=== PATIENT | female | born 1955 | race Caucasian/White ===

== ENCOUNTER → 2017-05-30 09:49 | Outpatient (CLI) | payer BC, SELFPAY ==
[2017-05-30 12:12] LABS: Absolute Lymphocyte Count 2.11 X10^3/ul (0.83-4.51); Absolute Neutrophil Count 3.1 X10^3/uL (2.0-7.7); Basophil# 0.02 X10^3/uL; Basophil% 0.3 % (0-1); Eosinophil# 0.21 X10^3/uL; Eosinophils% 3.5 % (0-5); Hematocrit 39.2 % (37-47); Hemoglobin 12.8 g/dl (12.0-15.0); Lymphocyte # 2.11 X10^3/ul (4.0); Mean Corp Hgb Conc 32.7 g/gl (32-36); Mean Corpuscular Hgb 31.6 pg (27.0-32.0); Mean Corpuscular Volume 96.8 fL (81-99); Mean Platelet Vol. 9.1 fl (6.2-12.0); Monocyte# 0.55 X10^3/uL; Monocyte% 9.1 % (0-10); Neutrophil # 3.14 X10^3/uL (2.7-7.7); Neutrophil % 52.1 % (47-70); Platelet Count 351 K/mm3 (150-450); RBC Distribution Width CV 12.9 % (11.6-14.6); RBC Distribution Width SD 43.9 fl (35.1-43.9); Red Blood Count 4.05 M/mm3 (4.2-5.4)
[2017-05-30 12:14] LABS: POSITIVE COUNT NO; POSITIVE DIFFERENTIAL NO; POSITIVE MORPHOLOGY NO
[2017-05-30 12:39] LABS: ALB/GLOB Ratio 0.9 RATIO (0.9-2.4); AST(SGOT) 36 U/L (15-37); Alanine Aminotransfer ALT/SGPT 63 U/L (13-56); Albumin, Serum 3.6 g/dL (3.2-5.0); Alkaline Phosphatase 155 U/L (45-117); Anion Gap 6 (5-15); BUN 19 mg/dL (7-18); BUN/Creat Ratio 20.7 RATIO (10-20); Calcium,Total 9.3 mg/dL (8.5-10.1); Chloride 105 mmol/L (98-107); Cholesterol 171 mg/dL (200); Creatinine, Serum 0.92 mg/dL (0.55-1.02); EST Glomerular Filtration Rate 65 mL/min (>60); Est Glom Filt Rate - Afr Amer 79 mL/min (>60); Glucose 101 mg/dL (74-106); High Density Lipoprotein 57 mg/dL; Potassium 4.3 mmol/L (3.5-5.1); Protein, Total 7.6 g/dL (6.4-8.2); Sodium Level 141 mmol/L (136-145); Thyroid Stim Hormone (TSH) 1.88 uIU/mL (0.358-3.74); Triglycerides 84 mg/dL; Very Low Density Lipoprotein 17 mg/dL (5-40)
== END ==
PROVIDERS: Family Provider Family Medicine; PCP Family Medicine; Visit Provider Family Medicine
DX: C50.911 Malignant neoplasm of unspecified site of right female breast (principal); E78.00 Pure hypercholesterolemia, unspecified; E03.9 Hypothyroidism, unspecified
CPT/HCPCS: 36415; 80053; 80061; 84443; 85025

== ENCOUNTER → 2017-06-01 10:41 | Outpatient (CLI) | payer BC, SELFPAY ==
[2017-06-03 13:34] LABS: HPV Reflexed? NOT INDICATED
== END ==
PROVIDERS: Visit Provider Obstetrics & Gynecology
DX: Z01.419 Encounter for gynecological examination (general) (routine) without abnormal findings (principal); Z12.4 Encounter for screening for malignant neoplasm of cervix
CPT/HCPCS: 88175; G0145

== ENCOUNTER → 2017-09-02 12:17 | Outpatient (CLI) | payer BC, SELFPAY ==
--- NOTE | 2017-09-02 12:20 | STE_ITS ---
Reason For Study: Chest Pain Stress Results Protocol: Chaim Protocol Maximum Predicted HR: 157 bpm Target HR: 133 bpm% Max imum Predicted HR: 99 % DurationHeart Rate Stage (mm:ss) (bpm) BPCom ment Baseline 80 122/80 No Chest Pain Chaim Protocol Stage I 3:00 13 9 130/70No Chest Pain; Mild Dyspnea Chaim Protocol Stage II 3:00 15 5 154/72No Chest Pain; Moderate Dyspnea Recovery 96 128/70 No Chest Pain Stress Duration: 6:00 mm:ss Maximum Stress HR: 155 bpmM ETS: 7 Baseline Echocardiogram Findings Stress Echo Wall motion Data Resting WMIntermediate WMStress WM Resting Wall Motion Wall Motion Stress No regional wall motion No regional wall motion abnormalities noted. abnormalities noted. Ejection Fraction 45 %. Ejection Fraction 50 %. Stress Results Normal blood pressure response to exercise. Exercise was stopped due to dyspnea. EKG Data Baseline ECG demonstrates normal sinus rhythm with a rate of 65 beats per minute. Normal intervals are noted. The resting blood pressure was 122/80. The patient exercised according to the regular Chaim protocol for a total duration of 6 min. The maximum heart rate attained was 157 beats per minute. This was 100% of maximum predicted heart rate. The patient exercised into stage 2 of the Chaim protocol. During stress, there were no ST or T wave changes noted to suggest ischemia. At peak exercise, upsloping ST changes only were noted, which did not meet the criteria for ischemia. No arrhythmias noted. No clinical angina was noted. The peak blood pressure was 154/72. Interpretation Summary Mildly reduced resting LV systolic function. Nonstenotic valves. With stress, the LV size decreased and all segments augmented normally. The LVEF increased from 45% to 50%. Negative for ischemia at 100% of MPHR and at 7 METS. Resting cardiomyopathy noted No stress induced ischemia. Ordering Physician: Reinaldo Parada Referring Physician: Romie Lao MD Performed By: Brodwolf, Cesar, RCS
== END ==
PROVIDERS: Family Provider Family Medicine; PCP Family Medicine; Visit Provider Family Medicine
DX: R07.89 Other chest pain (principal)
CPT/HCPCS: 93017; 93350

== ENCOUNTER → 2017-09-27 08:47 | Outpatient (CLI) | payer BC, SELFPAY ==
--- NOTE | 2017-09-27 08:59 | US_ITS ---
STUDY: ABDOMINAL ULTRASOUND - RIGHT UPPER QUADRANT REASON FOR VISIT: Female, 61 years old. Elevated hepatic function enzymes. TECHNIQUE: Ultrasound evaluation of the right upper quadrant was performed with real-time and static montilla-scale imaging. TECHNICAL QUALITY: Adequate. COMPARISON: None available. FINDINGS: Liver: The liver measures 15.3 cm. There is normal echogenicity of the liver. The bile ducts appear within normal limits. There is hepatic color flow. The direction of portal flow appears hepatopetal. There is no demonstrated mass lesion. Gallbladder: Normal distended gallbladder. The gallbladder wall measures 2.0 mm. There is a negative sonographic Gaffney's sign. There is no pericholecystic fluid. There are no gallstones. Common Bile Duct (C.B.D.): The common bile duct measures 1.2 mm. Pancreas: Normal size of the visualized head, body and tail of the pancreas. There is normal echogenicity of the visualized pancreas. There is no demonstrated pancreatic mass or cyst. No dilated pancreatic duct identified. Right Kidney: Normal size of the right kidney. The right kidney measures 11.0 x 3.9 x 4.2 cm. Normal renal cortex. The right cortex measures approximately 1.2 CM thick. There is no demonstrated renal mass or cyst. There is no right hydronephrosis. Mild dilatation right renal pelvis noted, nonspecific and of questionable clinical significance. US/Abdomen Limited IMPRESSION: Nonacute right upper quadrant ultrasound examination. No sonographic finding of acute cholecystitis or complete bowel obstruction identified. Mild dilatation right renal pelvis noted, nonspecific and of questionable clinical significance. Clinical correlation recommended. Electronically Signed: Srinivasan Ramires, at 9:49 EDT Tel , Service support ,
== END ==
PROVIDERS: Family Provider Family Medicine; PCP Family Medicine; Visit Provider Family Medicine
DX: R74.8 Abnormal levels of other serum enzymes (principal)
CPT/HCPCS: 76705

== ENCOUNTER → 2017-10-11 10:53 | Outpatient (CLI) | payer BC, SELFPAY | PROVIDERS: Family Provider Family Medicine; PCP Family Medicine; Visit Provider Family Medicine | DX: R94.30 Abnormal result of cardiovascular function study, unspecified (principal) | CPT/HCPCS: 78472; A9560 ==

== ENCOUNTER → 2018-08-02 | Outpatient (CLI) | payer BC, SELFPAY ==
[2018-08-04 11:48] LABS: HPV Reflexed? NOT INDICATED
== END | disposition home or self-care (01) ==
LOC: LABSPEC 11:05
PROVIDERS: Visit Provider Obstetrics & Gynecology
DX: Z12.4 Encounter for screening for malignant neoplasm of cervix (principal)
CPT/HCPCS: 88175; G0145

== ENCOUNTER → 2018-08-03 | Outpatient (CLI) | payer BC, SELFPAY ==
--- NOTE | 2018-08-03 08:10 | RAD_ITS ---
STUDY: X-RAY CHEST REASON FOR EXAM: Female, 62 years old. Cough TECHNIQUE: PA and lateral views of the chest COMPARISON: X-ray chest July 12, 2014 FINDINGS: The lungs are clear. There are no pleural effusions. There is no pneumothorax. The heart is normal in size. The visualized osseous structures are within normal limits. RAD/Chest PA and Lateral IMPRESSION: No acute thoracic pathology. Electronically Signed: Juvenal Fraser, at 17:53 EDT Tel , Service support ,
== END | disposition home or self-care (01) ==
PROVIDERS: Family Provider Family Medicine; PCP Family Medicine; Referring Provider Internal Medicine; Visit Provider Internal Medicine
DX: R05 Cough (principal)
CPT/HCPCS: 71046

== ENCOUNTER → 2018-10-30 09:30 | Outpatient (CLI) | payer BC, SELFPAY ==
[2018-10-30 10:26] LABS: Potassium 4.5 mmol/L (3.5-5.1)
== END ==
PROVIDERS: Family Provider Family Medicine; PCP Family Medicine; Referring Provider Family Medicine; Visit Provider Family Medicine
DX: E87.5 Hyperkalemia (principal)
CPT/HCPCS: 36415; 84132

== ENCOUNTER 2020-06-07 17:20 | Emergency (ER) | payer MEDICARE, OTHER, SELFPAY ==
[2019-12-18 09:23] VITALS: BMI 23.0
[2020-06-07 17:22] VITALS: BP 152/81; PULSE 92; RESP 18; TEMP 36.4; O2SAT 97; BMI 23.3
--- NOTE | 2020-06-07 17:32 | ED.VIS.GEN ---
History of Present Illness Chief Complaint: Lower Extremity Injury Narrative: Patient was walking down the steps, twisted her left foot and has lateral pain. No ankle pain no knee pain she denies any other current injury. Past medical history: Hypertension, hypothyroidism Medications: Reviewed Social history: Noncontributory Review of systems: Musculoskeletal: Left foot pain Skin: No abrasions or lacerations Neurological: No weakness or paresthesias Hematologic: No easy bleeding or easy bruising Physical exam General: Patient does not appear in significant distress . Head: Normocephalic, Atraumatic Neck: No C-spine tenderness Cardiovascular: Regular rate, Regular rhythm Respiratory: No distress, CTA bilaterally Back: Nontender, Normal Inspection. Extremities: Left foot shows tenderness and swelling in the proximal fifth metatarsal region. No ankle pain no proximal fibular tenderness no knee pain Skin: No abrasions, no lacerations Neurological: Normal strength and sensation Past Medical History - Allergies and Home Meds Allergies/Adverse Reactions: Allergies metoclopramide HCl [From Reglan] Allergy (Verified 06/07/20 17:21) Other Primary Care Physician: Reinaldo Quezada MD [Primary Care Provider] - Surgical History: total hip arthroplasty - bilateral, - - R oophorectomy, L fallopian tube removal and then a tubal pregancy after that, L subclavian port, lumpectomy Apr 2014 Smoking Status: Never smoker - Family History Maternal Family History: Family History (Last Updated 12/18/19 @ 09:30 by Virginia Ludwig) Unknown Heart disease Hypertension Breast cancer Family History: Reports: Cancer - strong history of breast CA....except in her mother, - - no hx of ovarian CA or CVD Paternal Family History: Family History (Last Updated 12/18/19 @ 09:30 by Virginia Ludwig) Unknown Heart disease Hypertension Breast cancer Family History: Reports: - - father had and a valve replacement Physical Exam Vital Signs/Narrative: Vital Signs Temp Pulse Resp BP Pulse Ox 06/07/20 17:22 97.5 F L 92 18 152/81 H 97 Diagnostic/Tx/Re-eval Left foot x-ray interpreted by emergency physician does not show any proximal fifth metatarsal fracture or any foot fracture. - Medical Decision Making Patient has an unremarkable x-ray. I will place in a postop shoe and discharged in stable condition. ED Disposition - Plan for ED Patient: Disposition: [facility] or Unit Diagnosis: Strain of foot Instructions: ED Ankle Sprain (Adult) Referrals: Reinaldo Quezada MD [Primary Care Provider] - 2 Days
--- NOTE | 2020-06-07 17:34 | RAD_ITS ---
STUDY: X-RAY - LEFT FOOT CLINICAL: Female, 64 years old. PAIN TO LATERAL FOOT S/P FALLING DOWN STEPS WITH TWISTING INJURY TECHNIQUE: 3 view(s) of the foot. COMPARISON: None. FINDINGS: Normal talus, calcaneus, and tarsal bones. Normal visualized subtalar, talonavicular, calcaneocuboid, tarsal and tarsometatarsal articulations. Normal metatarsi. A small plantar calcaneal spur is present. Small broad-based osteophyte seen on the dorsal aspect of the head of the talus. Normal metatarsophalangeal joint of the great toe. Normal tibial and fibular sesamoid bones. Normal interphalangeal joint of the great toe. Normal phalanges of the great toe. Normal second through fifth metatarsophalangeal joints. Normal interphalangeal joints and phalanges of the lesser toes. The soft tissue structures are unremarkable. There is no demonstrated fracture. RAD/Foot min 3 Views IMPRESSION: No acute process Electronically Signed: Yosi Conley MD at 18:16 EDT , Service support ,
== END 2020-06-07 18:29 | disposition home or self-care (01) ==
PROVIDERS: Emergency Provider Emergency Medicine; PCP Family Medicine
DX: S93.402A Sprain of unspecified ligament of left ankle, initial encounter (principal); Y93.01 Activity, walking, marching and hiking; Z88.8 Allergy status to other drugs, medicaments and biological substances; I10 Essential (primary) hypertension; E03.9 Hypothyroidism, unspecified; Z79.899 Other long term (current) drug therapy
CPT/HCPCS: 73630; 99283

== ENCOUNTER → 2021-09-24 | Outpatient (CLI) | payer MEDICARE, OTHER, SELFPAY ==
[2021-09-24 12:59] LABS: ALB/GLOB Ratio 1.1 RATIO (0.9-2.4); AST(SGOT) 19 U/L (15-37); Alanine Aminotransfer ALT/SGPT 39 U/L (13-56); Albumin, Serum 3.5 g/dL (3.2-5.0); Alkaline Phosphatase 97 U/L (45-117); Anion Gap 5 (5-15); BUN 19 mg/dL (7-18); BUN/Creat Ratio 24.2 RATIO (10-20); Calcium,Total 9.9 mg/dL (8.5-10.1); Chloride 103 mmol/L (98-107); Creatinine, Serum 0.79 mg/dL (0.55-1.02); EST Glomerular Filtration Rate 77 mL/min (>60); Est Glom Filt Rate - Afr Amer 94 mL/min (>60); Globulin 3.3 g/dL (2.2-4.2); Glucose 105 mg/dL (74-106); Protein, Total 6.8 g/dL (6.4-8.2); Sodium Level 140 mmol/L (136-145)
== END | disposition home or self-care (01) ==
LOC: MFPLAB 09:50
PROVIDERS: PCP Family Medicine; Referring Provider Family Medicine; Visit Provider Family Medicine
DX: E83.52 Hypercalcemia (principal)
CPT/HCPCS: 36415; 80053; 82330; 83970

== ENCOUNTER 2021-11-23 02:52 | Emergency (ER) | payer MEDICARE, OTHER, SELFPAY ==
[2021-11-23] VITALS (7 sets, daily range): BP systolic 120–147; BP diastolic 62–81; PULSE 71–109; RESP 14–21; TEMP 36.2–37.1; O2SAT 96–100; BMI 24.0
--- NOTE | 2021-11-23 03:07 | RAD_ITS ---
INDICATION: dislocation EXAMINATION/TECHNIQUE: X-RAY - LEFT XR Hip Unilateral with Pelvis when performed; 2-3 Views 3 VIEWS COMPARISON: 09/20/2014. FINDINGS: SOFT TISSUES: Surgical clip in the pelvis, similar compared to the prior. No soft tissue swelling or gas. No radiopaque foreign body. BONES/JOINTS: Status post bilateral hip arthroplasty with superior dislocation of the left femoral component. No acute fracture. Degenerative changes visualized spine. Preservation of the joint space.. No sclerotic or destructive changes observed. RAD/HIP, UNI W/ Pelvis 2-3 Views IMPRESSION: Superior dislocation of the left hip arthroplasty. Electronically Signed: Piotr Guillen MD at 3:47 EDT ,
[2021-11-23] MEDS: Morphine 4 MG/ML Syringe IV (03:20)
[2021-11-23] MEDS: 0.9% Normal Saline 1,000 ML 150 ML IV (03:20)
[2021-11-23] MEDS: Ondansetron 4 MG/2 ML Vial IV (03:20)
--- NOTE | 2021-11-23 03:32 | EDS_ITS ---
HPI History of Present Illness Chief Complaint: Lower Extremity Injury Detail of Chief Complaint: Left hip dislocation Informant: patient Onset/Context/Timing Onset: Today Current Severity: Mild Maximum Severity: Moderate Narrative Narrative: Patient presents secondary left hip dislocation. She had left hip [place] [address] Ken. She is had 2 prior dislocations. Tonight she was laying in bed. She twisted with her left hand across the right side of her body to pet her cat and felt her left hip dislocate. [facility] Medical History Breast cancer fibroid cyst Hip dislocation, left Hypothyroid Pre-diabetes Ruptured Tubal Home Medications folic acid 800 mcg tablet 0.8 mg PO DAILY@0800 07/12/14 [History Last Taken 07/11/14] multivitamin,gv-yssn-dfsilqzh 27 mg-0.4 mg tablet 1 tab PO DAILY 07/12/14 [History Last Taken 07/12/14] anastrozole 1 mg tablet 1 mg PO DAILY 12/18/19 [History Last Taken Unknown] atorvastatin 10 mg tablet (Lipitor) 10 mg PO DAILY 12/18/19 [History Last Taken Unknown] calcium carbonate 500 mg calcium (1,250 mg) tablet (Calcium 500) 500 mg PO DAILY 12/18/19 [History Last Taken Unknown] cholecalciferol (vitamin D3) 50 mcg (2,000 unit) capsule 50 mcg PO DAILY 12/18/19 [History Last Taken Unknown] diclofenac sodium 75 mg tablet,delayed release 75 mg PO BID PRN 12/18/19 [History Last Taken Unknown] docusate sodium 100 mg capsule 100 mg PO DAILY 12/18/19 [History Last Taken Unknown] gabapentin 100 mg capsule 100 mg PO BID 12/18/19 [History Last Taken Unknown] gabapentin 300 mg capsule 300 mg PO QHS 12/18/19 [History Last Taken Unknown] levothyroxine 75 mcg tablet (Synthroid) 75 mcg PO DAILY 12/18/19 [History Last Taken Unknown] magnesium 200 mg tablet 200 mg PO DAILY 12/18/19 [History Last Taken Unknown] metformin 500 mg tablet 500 mg PO BID 12/18/19 [History Last Taken Unknown] diclofenac sodium 75 mg tablet,delayed release 75 mg PO BID 11/23/21 [History Last Taken Unknown] Allergy/AdvReac Type Severity Reaction Status Date / Time metoclopramide HCl Allergy Other Verified 01/21/21 12:59 [From Reglan] Family History Unknown Heart disease Hypertension Breast cancer Surgical History H/O dilation and curettage History of bilateral hip replacements History of lumpectomy of right breast Social History household members: spouse and family number of children: 3 current occupational status: employed 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 [employer] history of recent travel: No sexually active: No Smoking Status: Never smoker alcohol intake: current alcohol intake frequency: holidays/special occasions only substance use type: does not use diet: low carbohydrate well-balanced diet: daily or most days what type of physical activity do you participate in: bicycling and other seatbelt use: always do you feel safe at home: Yes additional social history: - Eder [facility]AV[facility] ED Constitutional Constitutional ED: Denies chills or fever(s) Eyes Eyes: Denies change in vision or discharge from eye(s) ENT ENT ED: Denies discharge from eye(s), rhinorrhea or sore throat Cardiovascular Cardiovascular: Denies chest pain or palpitations Respiratory/Chest Respiratory/Chest: Denies cough or dyspnea Gastrointestinal Gastrointestinal: Denies abdominal pain, diarrhea, nausea or vomiting Genitourinary Genitourinary ED: Denies dysuria Musculoskeletal Musculoskeletal: Reports extremity pain; Denies back pain Integumentary Denies Abrasions or rash Neurologic Neurologic: Denies headache(s) Allergic/Immunologic Allergic/Immunologic ED: Denies lip swelling or urticaria EXAM Physical Exam Const Vital Signs: 11/23/21 02:53 11/23/21 03:55 11/23/21 04:23 Temperature 97.2 F L 98.7 F Temperature Source Temporal Pulse Rate 109 H 92 Pulse Rate [1 (Initial Baseline)] 88 Pulse Rate [2] 80 Pulse Rate [3] 80 Pulse Rate [4] 71 Respiratory Rate 20 H 18 Respiratory Rate [1 (Initial Baseline)] 14 Respiratory Rate [2] 14 Respiratory Rate [3] 21 H Respiratory Rate [4] 17 Blood Pressure 147/81 H 133/72 H Blood Pressure [1 (Initial Baseline)] 135/70 H Blood Pressure [2] 134/71 H Blood Pressure [3] 133/72 H Blood Pressure [4] 124/62 H Blood Pressure Mean 103 Pulse Ox 96 98 Oxygen Delivery Method Room Air Room Air Oxygen Delivery Method [1 (Initial Baseline)] Nasal Cannula Oxygen Delivery Method [2] Nasal Cannula Oxygen Delivery Method [3] Nasal Cannula Oxygen Delivery Method [4] Nasal Cannula Oxygen Flow Rate (L/min) Oxygen Flow Rate (L/min) [1 (Initial Baseline)] 5 Oxygen Flow Rate (L/min) [2] 5 Oxygen Flow Rate (L/min) [3] 5 Oxygen Flow Rate (L/min) [4] 5 11/23/21 04:49 11/23/21 04:53 Temperature Temperature Source Pulse Rate Pulse Rate [1 (Initial Baseline)] Pulse Rate [2] Pulse Rate [3] Pulse Rate [4] Respiratory Rate Respiratory Rate [1 (Initial Baseline)] Respiratory Rate [2] Respiratory Rate [3] Respiratory Rate [4] Blood Pressure Blood Pressure [1 (Initial Baseline)] Blood Pressure [2] Blood Pressure [3] Blood Pressure [4] Blood Pressure Mean Pulse Ox Oxygen Delivery Method Nasal Cannula Room Air Oxygen Delivery Method [1 (Initial Baseline)] Oxygen Delivery Method [2] Oxygen Delivery Method [3] Oxygen Delivery Method [4] Oxygen Flow Rate (L/min) 2 Oxygen Flow Rate (L/min) [1 (Initial Baseline)] Oxygen Flow Rate (L/min) [2] Oxygen Flow Rate (L/min) [3] Oxygen Flow Rate (L/min) [4] Positive well nourished and well developed General Appearance ED: well developed HEENT Reports normocephalic and head/scalp atraumatic Eyes PERRL and EOMs intact bilaterally Neck supple Chest Wall inspection of chest normal and palpation of chest normal Resp normal respiratory effort and clear to auscultation bilaterally Cardio regular rate and regular rhythm GI normal to inspection, nondistended, normoactive bowel sounds Palpation: soft Extremity Extremity Narrative: Left hip held in flexed position. Good distal pulses and can wiggle toes. Normal sensation distally. Neuro oriented x3 and no sensory deficits noted Sensorium / Orientation: alert Psych mental status grossly normal Skin no rashes or lesions noted MDM MDM MDM Narrative Medical decision making narrative: Patient was given morphine and Zofran for pain control. Pelvis/left hip x-ray obtained. Radiography Diagnostic Testing: Clinical Impression(s) from Imaging Studies Hip/Pelvis X-Ray 11/23/21 03:07 IMPRESSION: Superior dislocation of the left hip arthroplasty. Electronically Signed: Piotr Guillen MD at 3:47 EDT , Hip X-Ray 11/23/21 04:43 IMPRESSION: Interval reduction of left hip arthroplasty dislocation now in anatomic alignment. Electronically Signed: Piotr Guillen MD at 5:04 EDT , Treatment and Re-Evaluation Narrative: Pelvis and left hip x-ray per my interpretation reveals a posterior dislocation. Patient has not had anything to eat or drink in greater than 9 hours. She is consented for procedural sedation. I did review her previous sedation from 2015. Patient placed on vehicle monitor technician. Nasal cannula with oxygen at 5 L provided. Timeout performed. Patient given a total of 140 mg of propofol and several different aliquots for sedation and reduction. Total sedation time was 19 minutes. Left hip is reduced and placed in a knee immobilizer. Repeat left hip x-ray obtained and reveals good reduction. At this time patient is alert and able to ambulate to the restroom and back. She will be discharged with her knee immobilizer. She will follow-up with Dr. Ken as needed. Discharge Plan Triage Chief Complaint: Lower Extremity Injury ED Provider: Estefani Ortez Dx/Rx/DC Orders Clinical Impression: Closed dislocation of left hip Instructions: ED Hip Replace Dislocation Reduc Prescriptions: No Action calcium carbonate [Calcium 500] 500 mg calcium (1,250 mg) tablet 500 mg PO DAILY magnesium 200 mg tablet 200 mg PO DAILY anastrozole 1 mg tablet 1 mg PO DAILY levothyroxine [Synthroid] 75 mcg tablet 75 mcg PO DAILY gabapentin 100 mg capsule 100 mg PO BID gabapentin 300 mg capsule 300 mg PO QHS atorvastatin [Lipitor] 10 mg tablet 10 mg PO DAILY cholecalciferol (vitamin D3) 50 mcg (2,000 unit) capsule 50 mcg PO DAILY docusate sodium 100 mg capsule 100 mg PO DAILY diclofenac sodium 75 mg tablet,delayed release (DR/EC) 75 mg PO BID PRN metformin 500 mg tablet 500 mg PO BID folic acid 0.8 MG tablet 0.8 mg PO DAILY@0800 Label Comments: SUPPLIMENT multivitamin,ak-thrg-srbmlutn 1 TABLET tablet 1 tab PO DAILY Label Comments: SUPPLIMENT diclofenac sodium 75 mg tablet,delayed release (DR/EC) 75 mg PO BID Label Comments: TAKE 1 TABLET BY MOUTH TWICE DAILY Primary Care Provider: Reinaldo Quezada Referrals: Reinaldo Quezada MD [Primary Care Provider] - Félix Ken DO [Med Staff - Active Staff] - As Needed Disposition Disposition: Home, Self Care
--- NOTE | 2021-11-23 04:43 | RAD_ITS ---
INDICATION: post reduction EXAMINATION/TECHNIQUE: X-RAY - LEFT XR Hip Unilateral with Pelvis when performed; 2-3 Views 2 VIEWS COMPARISON: 11/23/2021. FINDINGS: SOFT TISSUES: No soft tissue swelling or gas. No radiopaque foreign body. BONES/JOINTS: Status post reduction of the left hip arthroplasty dislocation now in anatomic alignment. No periprosthetic fracture. Preservation of the joint space.. No sclerotic or destructive changes observed. RAD/Hip Min 2 Views (Portable) IMPRESSION: Interval reduction of left hip arthroplasty dislocation now in anatomic alignment. Electronically Signed: Piotr Guillen MD at 5:04 EDT ,
[2021-11-23] MEDS: Propofol 200 MG/20 ML Vial IV BOLUS (05:37)
== END 2021-11-23 07:20 | disposition home or self-care (01) ==
PROVIDERS: Emergency Provider Emergency Medicine; PCP Family Medicine; Visit Provider Emergency Medicine
DX: S73.015A Posterior dislocation of left hip, initial encounter (principal); R73.03 Prediabetes; X50.1XXA Overexertion from prolonged static or awkward postures, initial encounter; Z96.642 Presence of left artificial hip joint; Z79.84 Long term (current) use of oral hypoglycemic drugs
CPT/HCPCS: 27250; 73502; 96361; 96374; 96375; 99152; 99285; J7030; A4216; J2405

== ENCOUNTER → 2021-12-31 | Outpatient (CLI) | payer MEDICARE, OTHER, SELFPAY ==
[2021-12-31 12:42] LABS: Absolute Neutrophil Count 3.5 X10^3/uL (2.0-7.7); Basophil# 0.07 X10^3/uL; Basophil% 1.1 % (0-1); Eosinophil# 0.17 X10^3/uL; Eosinophils% 2.7 % (0-5); Hematocrit 38.3 % (37-47); Hemoglobin 12.4 g/dL (12.0-15.0); Lymphocyte % 30.4 % (19-41); Mean Corp Hgb Conc 32.4 g/dL (32-36); Mean Corpuscular Hgb 32.2 pg (27.0-32.0); Mean Corpuscular Volume 99.5 fL (81-99); Mean Platelet Vol. 8.9 fl (6.2-12.0); Monocyte# 0.65 X10^3/uL; Monocyte% 10.4 % (0-10); NRBC Flagged by Analyzer 0 % (0-5); Neutrophil # 3.45 X10^3/uL (2.7-7.7); Neutrophil % 55.2 % (47-70); Platelet Count 397 K/mm3 (150-450); RBC Distribution Width CV 12.9 % (11.6-14.6); RBC Distribution Width SD 47.4 fl (35.1-43.9); Red Blood Count 3.85 M/mm3 (4.2-5.4); White Blood Count 6.3 K/mm3 (4.4-11.0)
[2021-12-31 13:19] LABS: Vitamin B12 1207 pg/mL (211-911)
[2021-12-31 14:19] LABS: ALB/GLOB Ratio 0.9 RATIO (0.9-2.4); AST(SGOT) 20 U/L (15-37); Alanine Aminotransfer ALT/SGPT 39 U/L (13-56); Albumin, Serum 3.3 g/dL (3.2-5.0); Alkaline Phosphatase 104 U/L (45-117); Anion Gap 6 (5-15); BUN 20 mg/dL (7-18); BUN/Creat Ratio 26.4 RATIO (10-20); Calcium,Total 9.9 mg/dL (8.5-10.1); Chloride 104 mmol/L (98-107); Cholesterol 180 mg/dL (200); Creatinine, Serum 0.76 mg/dL (0.55-1.02); EST Glomerular Filtration Rate 81 mL/min (>60); Est Glom Filt Rate - Afr Amer 97 mL/min (>60); Ferritin 74 ng/mL (8-252); Globulin 3.6 g/dL (2.2-4.2); Glucose 107 mg/dL (74-106); High Density Lipoprotein 71 mg/dL; Iron 84 ug/dL (50-170); Iron Binding Capacity,Total 366 ug/dL (250-450); Potassium 4.8 mmol/L (3.5-5.1); Protein, Total 6.9 g/dL (6.4-8.2); Sodium Level 140 mmol/L (136-145); T4 Free Direct 1.23 ng/dL (0.76-1.46); Thyroid Stim Hormone (TSH) 2.63 uIU/mL (0.358-3.74); Triglycerides 78 mg/dL; Very Low Density Lipoprotein 16 mg/dL (5-40)
== END | disposition home or self-care (01) ==
LOC: MFPLAB 10:24
PROVIDERS: PCP Family Medicine; Referring Provider Family Medicine; Visit Provider Family Medicine
DX: E78.5 Hyperlipidemia, unspecified (principal); D63.8 Anemia in other chronic diseases classified elsewhere; R73.01 Impaired fasting glucose
CPT/HCPCS: 36415; 80053; 80061; 82607; 82728; 82746; 83036; 83540; 83550; 84439; 84443; 85025; 96372; 96374; 96375

== ENCOUNTER → 2022-02-01 | Outpatient (CLI) | payer MEDICARE, OTHER, SELFPAY ==
[2022-02-01 15:07] LABS: Hematocrit 35.5 % (37-47); Hemoglobin 11.2 g/dL (12.0-15.0); Mean Corp Hgb Conc 31.5 g/dL (32-36); Mean Corpuscular Hgb 31.6 pg (27.0-32.0); Mean Corpuscular Volume 100.3 fL (81-99); Mean Platelet Vol. 8.1 fl (6.2-12.0); Platelet Count 750 K/mm3 (150-450); RBC Distribution Width CV 12.9 % (11.6-14.6); RBC Distribution Width SD 47.5 fl (35.1-43.9); Red Blood Count 3.54 M/mm3 (4.2-5.4); White Blood Count 12.8 K/mm3 (4.4-11.0)
== END | disposition home or self-care (01) ==
PROVIDERS: PCP Family Medicine; Referring Provider Physician Assistant Surgical; Visit Provider Physician Assistant Surgical
DX: D64.0 Hereditary sideroblastic anemia (principal)
CPT/HCPCS: 36415; 85027

== ENCOUNTER 2023-03-01 13:31 | Emergency (ER) | payer MEDICARE, OTHER, SELFPAY ==
[2023-03-01 13:33] VITALS: BP 162/79; PULSE 92; RESP 16; TEMP 36.8; O2SAT 94; BMI 24.5
--- NOTE | 2023-03-01 14:11 | RAD_ITS ---
STUDY: X-RAY CHEST REASON FOR EXAM: Female, 67 years old. CHEST PAIN TECHNIQUE: Single AP portable view of the chest. COMPARISON: Comparison is made with prior study dated 04/05/2018. FINDINGS: Hyperinflation. Surgical clips are seen overlying the mid right hemithorax most likely related with breast surgery. The lungs are clear and expanded. There is no demonstrated pleural abnormality. Normal size heart. Normal mediastinum and myron. Normal visualized pulmonary arteries. Normal visualized aortic arch and descending thoracic aorta. There are degenerative changes of the visualized thoracic spine. There is evidence of left shoulder calcific tendinitis. There is no demonstrated abnormality of the visualized soft tissue structures of the upper abdomen. RAD/Chest 1 View (Portable) IMPRESSION: No acute abnormality is seen. Electronically Signed: Paul Mcmillan MD at 15:17 EST ,
--- NOTE | 2023-03-01 14:11 | EKG12_ITS ---
Test Reason : CP Blood Pressure : / mmHG Vent. Rate : 087 BPM Atrial Rate : 087 BPM P-R Int : 136 ms QRS Dur : 066 ms QT Int : 358 ms P-R-T Axes : 047 072 064 degrees QTc Int : 430 ms Normal sinus rhythm Low voltage QRS Borderline ECG Confirmed by BHANU ACEVES, ADALBERTO ([id number]), school photograph editor SUNNY LOPEZ ([id number]) on 03/02/2023 9:11:31 AM Referred By: ANUJA/SOFYA Confirmed By:ADALBERTO DRUMMOND MD
--- NOTE | 2023-03-01 14:12 | EDS_ITS ---
HPI History of Present Illness Chief Complaint: Chest Pain Informant: patient and friend Narrative Narrative: 67-year-old female presented to the emergency room chief complaint of chest pain. Patient states for the past 2 weeks she has had an intermittent pressure midsternal radiates up the left chest and left arm left neck. She states occasionally there is some sharp component. Sometimes it would last 30 minutes sometimes is all day. She saw primary care was placed on pantoprazole and Carafate which she states has not really made a difference. She states that she is under a lot of stress due to work and the loss of her 2 years ago due to heart attack. She states that she is worried that she may have passed from a heart attack. She had a stress echocardiogram in 2018 that was negative. Familial history of aortic stenosis. She herself is treated for hyperlipidemia hypothyroidism and has breast cancer in remission. 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 She developed the symptoms this morning at work and was given nitroglycerin which did not help. She notes no change in exercise tolerance. She states that she and her son León to take down to trees did not have any symptoms that they while exerting herself. CVD Risk Factors: Positive for Hypercholesterolemia [facility] Medical History Breast cancer fibroid cyst Hip dislocation, left Hypothyroid Pre-diabetes Ruptured Tubal Home Medications folic acid 800 mcg tablet 0.8 mg PO DAILY@0800 07/12/14 [History Last Taken 07/11/14] multivitamin,bi-uivy-ubdttgab 27 mg-0.4 mg tablet 1 tab PO DAILY 07/12/14 [History Last Taken 07/12/14] atorvastatin 10 mg tablet (Lipitor) 10 mg PO DAILY 12/18/19 [History Last Taken Unknown] calcium carbonate 500 mg calcium (1,250 mg) tablet (Calcium 500) 500 mg PO DAILY 12/18/19 [History Last Taken Unknown] cholecalciferol (vitamin D3) 50 mcg (2,000 unit) capsule 50 mcg PO DAILY 12/18/19 [History Last Taken Unknown] diclofenac sodium 75 mg tablet,delayed release 75 mg PO BID PRN 12/18/19 [History Last Taken Unknown] docusate sodium 100 mg capsule 100 mg PO DAILY 12/18/19 [History Last Taken Unknown] gabapentin 100 mg capsule 100 mg PO BID 12/18/19 [History Last Taken Unknown] gabapentin 300 mg capsule 300 mg PO QHS 12/18/19 [History Last Taken Unknown] levothyroxine 75 mcg tablet (Synthroid) 75 mcg PO DAILY 12/18/19 [History Last Taken Unknown] magnesium 200 mg tablet 200 mg PO DAILY 12/18/19 [History Last Taken Unknown] metformin 500 mg tablet 500 mg PO BID 12/18/19 [History Last Taken Unknown] diclofenac sodium 75 mg tablet,delayed release 75 mg PO BID 11/23/21 [History Last Taken Unknown] Allergy/AdvReac Type Severity Reaction Status Date / Time metoclopramide HCl Allergy Other Verified 03/01/23 13:32 [From Reglan] Family History Unknown Heart disease Hypertension Breast cancer Surgical History H/O dilation and curettage History of bilateral hip replacements History of lumpectomy of right breast S/P revision of total hip Social History household members: spouse and family number of children: 3 current occupational status: employed current occupation: [employer] in [employer] history of recent travel: No sexually active: No Smoking Status: Never smoker alcohol intake: current alcohol intake frequency: holidays/special occasions only substance use type: does not use diet: low carbohydrate well-balanced diet: daily or most days what type of physical activity do you participate in: bicycling and other seatbelt use: always do you feel safe at home: Yes additional social history: ROS ROS ED Constitutional Constitutional ED: Denies chills, fever(s) or weight loss Eyes Eyes: Denies change in vision or diplopia ENT ENT ED: Denies ear pain, rhinorrhea or sore throat Cardiovascular Cardiovascular: Reports chest pain; Denies orthopnea, palpitations or racing heartbeat Respiratory/Chest Respiratory/Chest: Denies cough, dyspnea or orthopnea Gastrointestinal Gastrointestinal: Denies abdominal pain, diarrhea, nausea or vomiting Genitourinary Genitourinary ED: Denies dysuria, hematuria or urinary frequency Musculoskeletal Musculoskeletal: Denies arthralgias or myalgias Integumentary Denies abscess or rash Neurologic Neurologic: Denies headache(s) or weakness Psychiatric Psychiatric: Denies anxiety, depression, suicidal ideation or suicidal thoughts Endocrine Endocrinology: Denies polydipsia, polyphagia or polyuria Allergic/Immunologic Allergic/Immunologic ED: Denies mouth swelling, tongue swelling or urticaria EXAM Physical Exam Const Vital Signs: 03/01/23 13:33 Temperature 98.3 F Temperature Source Temporal Pulse Rate 92 Respiratory Rate 16 Blood Pressure 162/79 H Blood Pressure Mean 106 Pulse Ox 94 Oxygen Delivery Method Room Air Positive well nourished and well developed General Appearance ED: well developed HEENT Reports normocephalic, head/scalp atraumatic and moist mucous membranes Eyes PERRL and EOMs intact bilaterally Neck no lymphadenopathy, supple and no JVD Resp normal respiratory effort and clear to auscultation bilaterally Cardio regular rate, regular rhythm and no murmurs GI normal to inspection, nondistended, normoactive bowel sounds and non-tender Palpation: soft Back/Spine no CVA tenderness and normal ROM Extremity normal to inspection General Extremety ED: Negative for edema General Extremity: Negative for edema Neuro oriented x3 and CN's II-XII intact bilaterally Sensorium / Orientation: alert Motor Exam: strength 5/5 throughout Psych mental status grossly normal Mood & Affect: Negative for depressed or tearful Skin no rashes or lesions noted and no wounds Heart Score History: Slightly/Non-Suspicious ECG: Normal Age: >/= 65 years Risk Factors: 1 or 2 Risk Factors Troponin: </= Normal Limit Score: 3 MDM MDM MDM Narrative Medical decision making narrative: My independent interpretation of the chest x-ray is no acute process. Normal mediastinal silhouette. Cardiology concurs. CBC is normal. BMP normal. Troponin 5. I do not believe the patient experienced any cardiac damage today. I do not think a delta troponin is necessarily going to help us. Heart score is 3. She has had no events on monitor. Patient will be discharged home with instructions to follow-up with primary care. I did recommend further cardiac stress test to complete workup. History & Record Review Discussion w/independent historian: Patient and Friend Additional record(s) reviewed:: Prior outpatient record Lab Data Attestation: I reviewed the patient's lab results. Labs: Laboratory Results - last 24 hr 03/01/23 14:45 WBC 10.2 RBC 4.11 L Hgb 12.9 Hct 39.4 MCV 95.9 MCH 31.4 MCHC 32.7 RDW Std Deviation 43.6 RDW Coeff of Arlyn 12.3 Plt Count 422 MPV 8.3 Immature Gran % (Auto) 0.200 Neut % (Auto) 70.0 Lymph % (Auto) 20.7 Josephine % (Auto) 6.5 Eos % (Auto) 1.9 Baso % (Auto) 0.7 Absolute Neuts (auto) 7.2 Absolute Lymphs (auto) 2.12 Nucleated RBC % 0 Sodium 140 Potassium 4.1 Chloride 107 Carbon Dioxide 31.0 Anion Gap 2 L BUN 17 Creatinine 0.85 Estim Creat Clear Calc 53.94 Est GFR (MDRD) Af Amer 85 Est GFR (MDRD) Non-Af 70 BUN/Creatinine Ratio 19.9 Glucose 103 Calcium 10.0 Troponin I High Sens 5 EKG Initial EKG: Attestation: I personally reviewed and interpreted this EKG as follows: Comments: Normal sinus rhythm ventricular rate of 87 bpm. Discharge Plan Triage Chief Complaint: Chest Pain ED Provider: Shaun Bhatia Dx/Rx/DC Orders Prescriptions: No Action calcium carbonate [Calcium 500] 500 mg calcium (1,250 mg) tablet 500 mg PO DAILY magnesium 200 mg tablet 200 mg PO DAILY levothyroxine [Synthroid] 75 mcg tablet 75 mcg PO DAILY gabapentin 100 mg capsule 100 mg PO BID gabapentin 300 mg capsule 300 mg PO QHS atorvastatin [Lipitor] 10 mg tablet 10 mg PO DAILY cholecalciferol (vitamin D3) 50 mcg (2,000 unit) capsule 50 mcg PO DAILY docusate sodium 100 mg capsule 100 mg PO DAILY diclofenac sodium 75 mg tablet,delayed release (DR/EC) 75 mg PO BID PRN metformin 500 mg tablet 500 mg PO BID folic acid 0.8 MG tablet 0.8 mg PO DAILY@0800 Patient Comments: SUPPLIMENT multivitamin,sw-fllc-xewuzaut 1 TABLET tablet 1 tab PO DAILY Patient Comments: SUPPLIMENT diclofenac sodium 75 mg tablet,delayed release (DR/EC) 75 mg PO BID Patient Comments: TAKE 1 TABLET BY MOUTH TWICE DAILY Primary Care Provider: Reinaldo Quezada Referrals: Reinaldo Quezada MD [Primary Care Provider] -
[2023-03-01 14:54] LABS: Absolute Lymphocyte Count 2.12 X10^3/uL (0.83-4.51); Absolute Neutrophil Count 7.2 X10^3/uL (2.0-7.7); Basophil# 0.07 X10^3/uL; Basophil% 0.7 % (0-1); Eosinophil# 0.19 X10^3/uL; Eosinophils% 1.9 % (0-5); Hematocrit 39.4 % (37-47); Hemoglobin 12.9 g/dL (12.0-15.0); Lymphocyte # 2.12 X10^3/ul (0.83-4.51); Lymphocyte % 20.7 % (19-41); Mean Corp Hgb Conc 32.7 g/dL (32-36); Mean Corpuscular Hgb 31.4 pg (27.0-32.0); Mean Corpuscular Volume 95.9 fL (81-99); Mean Platelet Vol. 8.3 fl (6.2-12.0); Monocyte# 0.67 X10^3/uL; Monocyte% 6.5 % (0-10); NRBC Flagged by Analyzer 0 % (0-5); Neutrophil # 7.16 X10^3/uL (2.7-7.7); Platelet Count 422 K/mm3 (150-450); RBC Distribution Width CV 12.3 % (11.6-14.6); RBC Distribution Width SD 43.6 fl (35.1-43.9); Red Blood Count 4.11 M/mm3 (4.2-5.4); White Blood Count 10.2 K/mm3 (4.4-11.0)
[2023-03-01 15:25] LABS: Anion Gap 2 (5-15); BUN 17 mg/dL (7-18); BUN/Creat Ratio 19.9 RATIO (10-20); Chloride 107 mmol/L (98-107); Creatinine, Serum 0.85 mg/dL (0.55-1.02); EST Glomerular Filtration Rate 70 mL/min (>60); Est Glom Filt Rate - Afr Amer 85 mL/min (>60); Estimated Creatinine Clearance 53.94 ml/min; Glucose 103 mg/dL (74-106); Potassium 4.1 mmol/L (3.5-5.1); Sodium Level 140 mmol/L (136-145); Troponin-I HS 5 pg/mL (3.0-54.0)
== END 2023-03-01 15:48 | disposition home or self-care (01) ==
PROVIDERS: Emergency Provider Emergency Medicine; PCP Family Medicine; Visit Provider Emergency Medicine
DX: R07.9 Chest pain, unspecified (principal); E78.00 Pure hypercholesterolemia, unspecified; Z85.3 Personal history of malignant neoplasm of breast; E03.9 Hypothyroidism, unspecified; Z79.899 Other long term (current) drug therapy; Z96.643 Presence of artificial hip joint, bilateral
CPT/HCPCS: 71045; 80048; 84484; 85025; 93005; 99284; A4216

== ENCOUNTER → 2023-03-09 | Outpatient (CLI) | payer MEDICARE, OTHER, SELFPAY ==
--- NOTE | 2023-03-10 07:13 | STRESSREP ---
Stress Test Report Exercise stress test. 67-year-old lady with a history of chest pain Stress protocol: Resting EKG demonstrates normal sinus rhythm with a rate of 70 bpm resting blood pressure is 130/68 mmHg. The patient exercised according to the regular Chaim protocol for a total duration of 5 minutes and 15 seconds attaining a maximum heart rate of 153 bpm which was 101% of maximum predicted heart rate; the maximum workload was 7 metabolic equivalents. At rest there were no ST or T wave changes noted to suggest ischemia and at peak exercise upsloping ST changes only were noted which did not meet the criteria for ischemia. No clinical angina was noted the test was terminated due to the target heart rate being achieved/fatigue. The peak blood pressure was 162/72 mmHg. Rate-pressure product was 24,700. Conclusion: Exercise stress test with no EKG criteria for ischemia at a moderate workload. No clinical angina noted.
== END | disposition home or self-care (01) ==
LOC: CVS 09:59
PROVIDERS: PCP Family Medicine; Referring Provider Family Medicine; Visit Provider Family Medicine
DX: R01.1 Cardiac murmur, unspecified (principal); R07.9 Chest pain, unspecified
CPT/HCPCS: 93017

== ENCOUNTER → 2023-03-11 | Outpatient (CLI) | payer MEDICARE, OTHER, SELFPAY ==
--- NOTE | 2023-03-11 07:48 | ECHOD_ITS ---
Reason For Study: Murmur Procedure This was a 2D Doppler, Color Flow transthoracic echocardiogram. Exam performed in department. Left Ventricle Normal LV size. Left ventricular systolic function is normal. The estimated ejection fraction is 60 %. Stage 1 diastolic dysfunction. No regional wall motion abnormalities noted. Right Ventricle Normal RV size. Normal systolic function. Atria Normal left atrium. Normal right atrium. Mitral Valve Normal mitral valve. Mild (1+) mitral valve insufficiency. Tricuspid Valve Normal tricuspid valve. Aortic Valve Trisinus/trileaflet aortic valve. Mild focal aortic valve thickening. Pulmonic Valve Normal pulmonic valve. Great Vessels Normal aortic root. The pulmonary artery is normal size. Normal inferior vena cava. Pericardium/Pleural No pericardial effusion. MMode/2D Measurements & Calculations LVIDd: 3.7 cm IVSd: 0.85 cm LVOT diam: 1.9 cm LVIDs: 2.4 cm LVPWd: 0.95 cm LVOT area: 2.9 cm2 RVDd: 3.1 cm FS: 37.1 % Ao root diam: 2.8 cm LAV(MOD-bp): 22.9 ml LVAd ap4: 20.8 cm2 LAV(MOD-bp) Indexed: 13.5 ml/m2 LVLd ap4: 6.6 cm LAV(MOD-sp2): 19.2 ml EDV(MOD-sp4): 54.8 ml LAV(MOD-sp4): 22.2 ml EDV(sp4-el): 55.7 ml LVAs ap4: 13.6 cm2 LVLs ap4: 6.1 cm ESV(MOD-sp4): 25.6 ml ESV(sp4-el): 25.5 ml EF(MOD-sp4): 53.3 % EF(sp4-el): 54.3 % LVAd ap2: 20.2 cm2 SV(MOD-sp4): 29.2 ml SV(MOD-sp2): 25.4 ml LVLd ap2: 7.5 cm EDV(MOD-sp2): 45.8 ml EDV(sp2-el): 46.1 ml LVAs ap2: 12.7 cm2 LVLs ap2: 6.8 cm ESV(MOD-sp2): 20.5 ml ESV(sp2-el): 20.4 ml EF(MOD-sp2): 55.3 % SV(sp4-el): 30.2 ml LA dimension(2D): 2.8 cm LA A4 area: 11.6 cm2 RA A4 area: 12.3 cm2 TAPSE: 1.9 cm Time Measurements MV dec time: 0.26 sec Doppler Measurements & Calculations MV E max dontae: 58.5 cm/sec Lat Peak E' Dontae: 8.4 cm/sec Med Peak E' Dontae: 7.4 cm/sec MV A max dontae: 84.1 cm/sec E/E' lat: 7.0 E/E' med: 7.9 MV E/A: 0.70 Ao V2 max: 135.8 cm/sec LV V1 max: 83.8 cm/sec MV dec slope: 221.8 cm/sec2 Ao max P.4 mmHg LV V1 max P.8 mmHg SKY(V,D): 1.8 cm2 PA V2 max: 86.7 cm/sec TR max dontae: 210.7 cm/sec TR max P.8 mmHg ECHO/Echo Complete Interpretation Summary Normal LV size. Left ventricular systolic function is normal. The estimated ejection fraction is 60 %. Stage 1 diastolic dysfunction. The global longitudinal strain = -18.5 % (normal). Ordering Physician: Charles Workman Referring Physician: Charles Workman Performed By: Mabel Nichole RDCS
--- OUTSIDE RECORDS SUMMARY | 2023-03-11 07:49 | XMS RPT_ITS | CCD ---
Author Name Unknown Address [address] [place] [address] Organization [facility] Care Team Providers Care Supervisor Covering And Lining Name Role Phone Ruthann Faustin Primary Care Provider [phone] RUTHANN FAUSTIN MD Primary Care Physician [phone] Ruthann Faustin Primary Care Provider STACI AVINA MD Attending Unavailable RAMIN ACEVES, RUTHANN Primary Care Unavailable STACI AVINA MD Attending Unavailable RUTHANN FAUSTIN MD Primary Care Unavailable STACI AVINA MD Admitting Unavailable RUTHANN FAUSTIN MD Consulting ISIDORO Conn Consulting Unavailable YENI BROWN Referring Unavailable RUTHANN FAUSTIN Primary Care Unavailable YENI BROWN Attending Unavailable RUTHANN FAUSTIN Primary Care Unavailable YENI BROWN Referring Unavailable RUTHANN FAUSTIN Primary Care Unavailable YENI BROWN Referring Unavailable Ruthann Faustin MD Primary Care Provider Allergies Allergy Classification Reported Allergen(s) Allergy Type Date of Onset Reaction(s) Facility (11 sources) Metoclopramide; Translations: [METOCLOPRAMIDE HCL] Drug Allergy 06-04-2014 Other: See Comments [facility] Work Phone: (2 sources) Metoclopramide; Translations: [metoclopramide] Drug Allergy Tardive dyskinesia [facility] Medications Current Medications Medication Drug Class(es) Dates Sig (Normalized) Sig (Original) acetaminophen 500 mg oral tablet (1 source) Start: 01-20-2022 End: 02-03-2022 take 1 tablet by mouth once daily acetaminophen 500 mg oral tablet Dose : 1,000 mg = 2 tab(s), Oral, TID, PRN as needed for pain, not to exceed 3000 mg/day, # 100 tab(s), 0 Refill(s), 02/03/22 7:41:00 EST, Pharmacy: [id number], 165.1, cm, 01/19/22 15:26:00 EST, Height Start Date: 01/20/22 Stop Date: 02/03/22 Status: Ordered atorvastatin 10 mg oral tablet (12 sources) HMG-CoA Reductase Inhibitor Start: 01-07-2022 Lipitor 10 mg oral tablet Dose : 10 mg = 1 tab(s), Oral, qPM Start Date: 01/19/22 Status: Ordered Completed/Discontinued Medications Medication Drug Class(es) Dates Sig (Normalized) Sig (Original) anastrozole 1 mg oral tablet (9 sources) Aromatase Inhibitor Start: 01-30-2021 End: 10-11-2022 take 1 tablet by mouth once daily anastrozole (ARIMIDEX) 1 mg tablet Take 1 tablet by mouth once daily. 90 tablet 3 01/30/2021 10/11/2022 Discontinued Problems Active Problems Problem Classification Problem Date Documented Da te Episodic/Chronic Cancer of breast (20 sources) Infiltrating duct carcinoma of breast; Translations: [Malignant neoplasm of unspecified site of right female breast] Onset: 09-09-2014 Chronic Other aftercare (1 source) USP (current) use of aromatase inhibitors; Translations: [USP (current) use of aromatase inhibitors] Onset: 11-01-2022 Episodic Other aftercare (1 source) Long-term current use of aromatase inhibitor; Translations: [USP (current) use of aromatase inhibitors] 11-01-2022 Episodic Other screening for suspected conditions (not mental disorders or infectious disease) (4 sources) Patient encounter status; Translations: [Encounter for screening mammogram for malignant neoplasm of breast] Onset: 08-16-2022 Episodic Past or Other Problems Problem Classification Problem Date Documented Da te Episodic/Chronic Deficiency and other anemia (10 sources) Anemia; Translations: [Anemia, unspecified] Onset: 09-03-2014 09-03-2014 Episodic Residual codes; unclassified (1 source) Estrogen receptor positive status [ER+]; Translations: [Malignant neoplasm of right breast in female, estrogen receptor positive, unspecified site of breast (HCC)] Onset: 09-09-2014 Episodic Results Test Name Value Interpretation Reference Range Facil ity Vital Signs Date Time Vital Sign Value Performing Clinician Facility 01-20-2022 07:39-0500 Body temperature 97.88 [degF] DR STACI AVINA MD [facility] 01-20-2022 07:39-0500 Diastolic Blood Pressure Non-Invasive [address] STACI AVINA MD [facility] 01-20-2022 07:39-0500 Heart rate 77 /min DR STACI AVINA MD [facility] 01-20-2022 07:39-0500 Reason For Taking VItal Signs DR STACI AVINA MD [facility] 01-20-2022 07:39-0500 Respiratory rate 18 /min DR STACI AVINA MD [facility] 01-20-2022 07:39-0500 Systolic Blood Pressure Non-Invasive [address] STACI AVINA MD [facility] 01-20-2022 04:40-0500 Body temperature 98.42 [degF] DR STACI AVINA MD [facility] 01-20-2022 04:40-0500 Diastolic Blood Pressure Non-Invasive [address] STACI AVINA MD [facility] 01-20-2022 04:40-0500 Heart rate 89 /min DR STACI AVINA MD [facility] 01-20-2022 04:40-0500 Reason For Taking VItal Signs DR STACI AVINA MD [facility] 01-20-2022 04:40-0500 Respiratory rate 18 /min DR STACI AVINA MD [facility] 01-20-2022 04:40-0500 Systolic Blood Pressure Non-Invasive [address] STACI AVINA MD [facility] 01-19-2022 23:10-0500 Body temperature 98.06 [degF] DR STACI AVINA MD [facility] 01-19-2022 23:10-0500 Diastolic Blood Pressure Non-Invasive [address] STACI AVINA MD [facility] 01-19-2022 23:10-0500 Heart rate 79 /min DR STACI AVINA MD [facility] 01-19-2022 23:10-0500 Reason For Taking VItal Signs DR STACI AVINA MD [facility] 01-19-2022 23:10-0500 Respiratory rate 16 /min DR STACI AVINA MD [facility] 01-19-2022 23:10-0500 Systolic Blood Pressure Non-Invasive [address] STACI AVINA MD [facility] 01-19-2022 15:31-0500 Heart rate 77 /min DR STACI AVINA MD [facility] 01-19-2022 15:26-0500 Body height 165.[address] STACI AVINA MD [facility] 01-19-2022 15:26-0500 Body weight 61.[address] STACI AVINA MD [facility] 01-19-2022 15:26-0500 Body weight 22.53 kg/m2 DR STACI AVINA MD [facility] 01-19-2022 14:00-0500 Body temperature 96.98 [degF] DR STACI AVINA MD [facility] 01-19-2022 13:55-0500 Respiratory Rate - Anes 14 br/min DR STACI AVINA MD [facility] 01-19-2022 13:50-0500 Respiratory Rate - Anes 10 br/min DR STACI AVINA MD [facility] 01-19-2022 13:45-0500 Respiratory Rate - Anes 13 br/min DR STACI AVINA MD [facility] 01-19-2022 13:30-0500 Body temperature 96.8 [degF] DR STACI AVINA MD [facility] 01-19-2022 13:15-0500 Body temperature 96.8 [degF] DR STACI AVINA MD [facility] 01-19-2022 10:19-0500 Body height 165.[address] STACI AVINA MD [facility] 01-19-2022 10:19-0500 Body temperature 97.88 [degF] DR STACI AVINA MD [facility] 01-19-2022 10:19-0500 Body weight 61.[address] STACI AVINA MD [facility] 01-19-2022 10:19-0500 Body weight 22.53 kg/m2 DR STACI AVINA MD [facility] 01-19-2022 10:19-0500 diastolic 72 mm[Hg] DR STACI AVINA MD [facility] 01-19-2022 10:19-0500 Heart rate 92 /min DR STACI AVINA MD [facility] 01-19-2022 10:19-0500 systolic 128 mm[Hg] DR STACI AVINA MD [facility] 01-07-2022 11:05-0500 Body height [address] STACI AVINA MD [facility] 01-07-2022 11:05-0500 Body weight 61.[address] STACI AVINA MD [facility] 08-20-2021 08:27-0400 Body height 164.5 cm Yeni Brown PSYCHOLOGICAL EXAMINER.DIAGRAM CLERK Work Phone: [facility] 08-20-2021 08:27-0400 Body temperature 98.1 [degF] [place] Brown PSYCHOLOGICAL EXAMINER.DIAGRAM CLERK Work Phone: [facility] 08-20-2021 08:27-0400 Body weight 63.05 kg Yeni Brown PSYCHOLOGICAL EXAMINER.DIAGRAM CLERK Work Phone: [facility] 08-20-2021 08:27-0400 Diastolic blood pressure 65 mm[Hg] [place] Brown PSYCHOLOGICAL EXAMINER.DIAGRAM CLERK Work Phone: [facility] 08-20-2021 08:27-0400 Heart rate 84 /min [place] Brown PSYCHOLOGICAL EXAMINER.DIAGRAM CLERK Work Phone: [facility] 08-20-2021 08:27-0400 Systolic blood pressure 113 mm[Hg] [place] Brown PSYCHOLOGICAL EXAMINER.DIAGRAM CLERK Work Phone: [facility] Encounters Encounter Date Encounter Type Care Provider Facility Start: 11-12-2022 Refill Yeni Shah r PSYCHOLOGICAL EXAMINER.DIAGRAM CLERK Work Phone: Hematology/Oncology Procedures Date Procedure Procedure Detail Performing Clinician Start: 11-01-2022 Dxa bone density joshua dy 1/> sites axial skel Yeni Brown PSYCHOLOGICAL EXAMINER.DIAGRAM CLERK Work Phone: Start: 08-16-2022 End: 08-16-2022 Mammography Yeni Brown PSYCHOLOGICAL EXAMINER .DIAGRAM CLERK Work Phone: Start: 08-14-2021 BLAIRE SCREENING W DELORES Garcia PSYCHOLOGICAL EXAMINER.DIAGRAM CLERK Work Phone: Start: 08-14-2021 Mammography Screen Wst r Start: 01-30-2021 Adult depression scr eening assessment Screen Wstr Start: 04-27-2019 Colonoscopy Screen Wst r Excision of mass DR STACI GRAYSON MD Ligation of fallopian tube D R STACI AVINA MD Oophorectomy DR STACI Jovel MD Plan of Treatment Date Care Activity Detail Author Start: 04-26-[address] [facility] Start: 04-26-2029 COLORECTAL CANCER SCREENING COLORECTAL CANCER SCREENING [facility] Start: 08-17-[address] [facility] Start: 05-07-2023 Pneumococcal Vaccine: 65+ (2 - PCV) Pneumococcal Vaccine: 65+ (2 - PCV) [facility] Start: 10-22-2022 Covid-19 Vaccine ( season) Covid-19 Vaccine ( season) [facility] Start: 10-22-2022 Influenza vaccination Influenza Vaccine (#1) [facility] Start: 08-14-[address] [facility] Start: 02-21-2022 ADVANCE DIRECTIVE DISCUSSION ADVANCE DIRECTIVE DISCUSSION [facility] Start: 02-21-2022 DEPRESSION ASSESSMENT DEPRESSION ASSESSMENT [facility] Start: 01-30-2022 Adult depression screening assessment DEPRESSION SCREENING [facility] Start: 10-22-2021 Influenza vaccination INFLUENZA (#1) [facility] Start: 06-12-2021 COVID-19 VACCINE (4 - Booster for Moderna series) COVID-19 VACCINE (4 - Booster for Moderna series) [facility] Start: 05-12-2021 COVID-19 VACCINE (4 - Booster for Moderna series) COVID-19 VACCINE (4 - Booster for Moderna series) [facility] Start: 04-08-2021 COVID-19 VACCINE (4 - Booster for Moderna series) COVID-19 VACCINE (4 - Booster for Moderna series) [facility] Start: 04-08-2021 Covid-19 Vaccine (4 - Moderna series) Covid-19 Vaccine (4 - Moderna series) [facility] Start: 02-21-2021 ADVANCE DIRECTIVE DISCUSSION ADVANCE DIRECTIVE DISCUSSION [facility] Start: 02-21-2021 DEPRESSION ASSESSMENT DEPRESSION ASSESSMENT [facility] Start: 2018 Pneumococcal Vaccine: 65+ (1 - PCV) Pneumococcal Vaccine: 65+ (1 - PCV) [facility] Start: 2018 PNEUMOCOCCAL: 65+ (1 - PCV) PNEUMOCOCCAL: 65+ (1 - PCV) [facility] Start: 02-10-2018 DIABETES SCREEN DIABETES SCREEN [facility] Start: 02-10-2018 Diabetes Screening Diabetes Screening [facility] Start: 2013 RSV Vaccine (1 - 1-dose 60+ series) RSV Vaccine (1 - 1-dose 60+ series) [facility] Start: 11-27-2003 SHINGRIX VACCINE (1 of 2) SHINGRIX VACCINE (1 of 2) [facility] Start: 1998 COLOGUARD (FIT-DNA) COLOGUARD (FIT-DNA) [facility] Start: [address]HY [facility] Start: 1998 FECAL OCCULT BLOOD FECAL OCCULT BLOOD [facility] Start: 1998 Lipid 1996 panel - Serum or Plasma Lipid Screening [facility] Start: 1998 LIPID SCREEN LIPID SCREEN [facility] Start: [address] [facility] Start: 1972 SHINGRIX VACCINE (1 of 2) SHINGRIX VACCINE (1 of 2) [facility] Start: [address] [facility] Start: 11-27-1971 HEPATITIS C SCREENING HEPATITIS C SCREENING [facility] Start: 11-27-1959 PNEUMOCOCCAL: 65+ (1 - PCV) PNEUMOCOCCAL: 65+ (1 - PCV) [facility] End: 09-19-2022 BLAIRE SCREENING W DELORES BLAIRE SCREENING [facility] Radiology Routine Malignant neoplasm of right breast in female, estrogen receptor positive, unspecified site of breast (HCC) Encounter for screening mammogram for high-risk patient 1 Occurrences starting 08/20/2021 until 09/19/2022 [facility] Work Phone: Immunizations Immunization Date Immunization Notes Care Provider Fa cili 12-08-2021 influenza virus vacc ine, unspecified formulation DR STACI AVINA MD [facility] 02-11-2021 SARS-CoV-2 (COVID-19 ) mRNA-[address] STACI AVINA MD [facility] 12-16-2020 influenza virus vacc ine, unspecified formulation DR STACI AVINA MD [facility] 03-25-2020 SARS-CoV-2 (COVID-19 ) mRNA-[address] STACI AVINA MD [facility] 02-26-2020 SARS-CoV-2 (COVID-19 ) mRNA-[address] STACI AVINA MD [facility] 12-06-2019 influenza virus vacc ine, unspecified formulation DR STACI AVINA MD [facility] 11-25-2016 influenza virus vacc ine, unspecified formulation DR STACI AVINA MD [facility] 01-19-2016 pneumococcal polysaccharide vaccine, [address] STACI AVINA MD [facility] 12-10-2014 influenza virus vacc ine, unspecified formulation DR TSACI AVINA MD [facility] 12-10-2014 influenza, high dose seasonal, preservative-free Screen Wstr [facility] Payers Date Payer Category Payer Unknown MMO MMO MEDICARE SUPPLEMENT [id number] 2019-Present [phone] [address] [place] [address] Indemnity [id number] 2019 Unknown MMO MMO MEDICARE SUPPLEMENT [id number] 2019-Present [phone] [address] [place] [address] Indemnity [id number] 2019 Unknown [id number] 2018 Medicare MEDICARE MEDICAR E A AND B [id number] 2018-Present [phone] [address] [address] [place] [address] Medicare [id number] 2018 Medicare MEDICARE MEDICAR E A AND B [id number] 2018-Present [phone] [address] [address] [place] [address] Medicare [id number] 2018 Medicare [id number] 1955 Unknown [id number] 1955 Unknown [id number] Social History Date Type Detail Facility Start: 06-04-2014 End: 01-31-2017 Tobacco smoking status NHIS Never smoked tobacco [facility] Start: 06-04-2014 End: 01-31-2017 Tobacco use and exposure Smokeless tobacco non-user [facility] Start: 01-30-2021 End: 10-11-2022 Alcohol intake Current drinker of alcohol (finding) [facility] Start: 06-04-2014 History SDOH Alcohol Comment occasionally 1 glass of wine every 2-[address] [facility] Start: 01-31-2017 Tobacco Comment second hand sm cuong from father and husb [facility] Start: 1955 Sex Assigned At Not on file [facility] Start: 08-04-2021 End: 08-14-2021 Exposure to SARS-CoV-2 (event) Not sure [facility] Sex Assigned At Female [facility] Start: 03-19-2022 End: 10-11-2022 History of Social function [facility] Start: 03-19-2022 End: 10-11-[address] [facility] Adult Depression Screening Assessment [address] [facility] Medical Equipment Procedure Code Equipment Code Equipment Origin al Text Equipment Identifier Dates Port Implinfn Pw rprt Plas 8fr - [id number] Start: 07-02-2014 Functional Status Date Assessment Result Facility 01-20-2022 Functional Status [facility] 01-20-2022 Functional Status 10 [facility] 01-20-2022 Functional Status [facility] 01-20-2022 Functional Status 1st floor bedr oom, 1st floor bathroom [facility] 01-20-2022 Functional Status [facility] 01-19-2022 Functional Status [facility] 01-19-2022 Functional Status Maintained [facility] 01-07-2022 Functional Status Sensory Deficits None A [facility] Mental Status Date Assessment Result Facility 01-20-2022 Mental Status Oriented x 4 [facility] 01-20-2022 Mental Status [facility] 01-19-2022 Mental Status [facility] Clinical Notes 09-03-2014 to 11-12-2022 Telephone Encounter - Paradise Muller - 11/12/2022 4:01 PM EDTTelephone Encounter - Lorena Rabago LPN - 11/05/2022 9:50 AM EDTCShahram ye RT(R) - 11/01/2022 8:30 AM EDT Note Date & Type Note Facility 11-12-2022 Miscellaneous Notes Patient called in requesting the attached refill. Please assist. Paradise Muller documented in this encounter [facility] 11-05-2022 Miscellaneous Notes Rx req. Last refill was used. Last OV 10/11/22. Lorena Rabago LPN documented in this encounter [facility] 11-01-2022 Note HNO ID: [id number] Author: Shahram Singh RT(R) Service: ? Author Type: Technologist Type: Progress Notes Filed: 11/01/2022 8:36 AM Note Text: Radiology Service Progress Note PATIENT NAME: Natalia Orozco DATE OF SERVICE: November 01, 2022 TIME: 8:35 AM PATIENT IDENTITY VERIFICATION COMPLETED USING TWO (2) IDENTIFIERS: Name and Date of confirmed by patient verbally. FALL SCREENING: Has the patient had 2 falls in the last year or 1 fall with injury or currently using an Ambulatory Assistive Device (Walker, Cane, Wheelchair, Crutches, etc.)? No PATIENT GENDER DATA: Female. status: : No status: NO. PATIENT RELEVANT IMPLANT DATA REVIEWED: Not Applicable RADIOLOGY DEPARTMENT: Bone Density PERIPHERAL IV DATA: Not applicable SIGNED BY: RT Duane(R) November 01, 2022 8:35 AM [facility] 11-01-2022 History of Presen t illness Narrative Radiology Service Progress Note PATIENT NAME: Natalia Orozco DATE OF SERVICE: November 01, 2022 TIME: 8:35 AM PATIENT IDENTITY VERIFICATION COMPLETED USING TWO (2) IDENTIFIERS: Name and Date of confirmed by patient verbally. FALL SCREENING: Has the patient had 2 falls in the last year or 1 fall with injury or currently using an Ambulatory Assistive Device (Walker, Cane, Wheelchair, Crutches, etc.)? No PATIENT GENDER DATA: Female. status: : No status: NO. PATIENT RELEVANT IMPLANT DATA REVIEWED: Not Applicable RADIOLOGY DEPARTMENT: Bone Density PERIPHERAL IV DATA: Not applicable SIGNED BY: RT Duane(R) November 01, 2022 8:35 AM documented in this encounter [facility] 10-11-2022 Note HNO ID: [id number] Author: Yeni Brown APRN.DIAGRAM CLERK Service: ? Author Type: Nurse Practitioner Type: Progress Notes Filed: 10/11/2022 2:30 PM Note Text: Chief Complaint Patient presents with: Established Patient HPI: Natalia Orozco is a 66 year old female who presents here today for follow up breast cancer. Per Dr. Rodriguez's previous note: H/o abnormality in the right breast on a screening mammogram. Biopsy showed invasive ductal carcinoma, nuclear grade 3. ER/ME (> 95% strong/3%, weak) HER2 amplified (8.6:1) Underwent partial mastectomy and SLN biopsy 06/12/2014. Final pathology: 1. [place] lymph node #1, right axilla, biopsy (A) - One lymph node, negative for carcinoma (0/1). 2. [place] lymph node #1, right axilla, biopsy (B) - One lymph node, negative for carcinoma (0/1). 3. [place] lymph node #1, right axilla, biopsy (C) - One lymph node, negative for carcinoma (0/1). 4. Right breast, needle-localized partial mastectomy (D) - Invasive moderately-differentiated ductal carcinoma, see synoptic report. - Invasive carcinoma is present less than 1 mm from anterior and posterior margins, which represent the closest margins of excision. - Changes consistent with previous biopsy site. 5. Right breast, inferior margin, excision (E) - Breast parenchyma, negative for malignancy. 6. Right breast, superior margin, excision (F) - Adipose tissue, negative for malignancy 7. Right breast, medial margin, excision (G) - Breast parenchyma with thermal cautery artifact, negative for malignancy. 8. Right breast, lateral margin, excision (H) - Breast parenchyma, negative for malignancy. 9. Right breast, deep margin, excision (I) - Breast parenchyma, negative for malignancy. 10. Right breast, anterior margin, excision (J) - Breast parenchyma, negative for malignancy. TP/cc 06/14/2014 COMMENT SYNOPTIC REPORT OF [facility] PATHOLOGIC FINDINGS RIGHT BREAST PARTIAL MASTECTOMY: Part: D Specimen Laterality: Right Procedure: Partial mastectomy Wire Localization: Wire present Lymph Node Sampling: [place] lymph node(s) Tumor size: Size of largest invasive carcinoma: Greatest dimension of largest focus of invasion >1 mm: 10 mm Tumor Focality: Single focus of invasive carcinoma Macroscopic-Microscopic Extension of tumor: Skin: Not applicable Nipple: Not applicable Skeletal muscle: No skeletal muscle present Invasive Carcinoma Margins: Margins uninvolved by invasive carcinoma Distance from closest margin: 0.5 mm Closest Uninvolved Margin:Posterior Distance of invasive carcinoma to anterior margin: 0.6 mm DCIS Margins: DCIS not present in specimen Histologic Type of Invasive Carcinoma: Invasive ductal carcinoma (no special type or not otherwise specified) Histologic Grade: Glandular (Acinar) / Tubular Differentiation: Score 3 Nuclear Pleomorphism: Score 2 Mitotic Rate: Score 1 Overall Grade: Grade II Lymph-Vascular Invasion: Not identified Ductal Carcinoma In Situ: No DCIS is present Lymph Nodes: Total number of nodes examined (sentinel and nonsentinel): 3 Number of sentinel lymph nodes examined: 3 Number of lymph nodes with macrometastases (>2 mm): 0 Number of lymph nodes with micrometastases (>0.2 mm to 2 mm and/or >200 cells): 0 Number of lymph nodes with isolated tumor cells (<= 0.2 mm and <= 200 cells): 0 TNM Descriptor(s): Not applicable Primary Tumor (Invasive Carcinoma) (pT): pT1b Regional Lymph Nodes (pN): Modifier: (sn) Category (pN): pN0 Distant metastasis: Not Applicable Estrogen AND progestrone receptors: Previously performed (HER2) ERBB2 STATUS: Previously performed Comment: Please refer to Parts E through J for additional margin status. Previous therapy: 1) AC 07/10 through 08/20/2014. 2) Taxol/Herceptin 09/03 through 11/19/2014. 3) Completed radiation 01/08/2015. Completed one years worth of Herceptin 08/2015. 4) Arimidex-Began January 2015. No new concerns today. L hip revision 2021. Appetite: Good. Energy level: Good. Denies fevers or recent illness. Resp:denies cough or sob Cardiac:denies chest pain/palpitations GI:denies abd pain, n/v, moving bowels regularly :denies dysuria/hematuria Extrem:occ. joint stiffness, denies pain elsewhere Endo:hot flashes daily Same. 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 Past medical history, appointments, medications, allergies reviewed. No changes. EXAM: BP 119/68 Pulse 74 Temp 36.8 ?C (98.2 ?F) (Temporal) Ht 163.8 cm (5' 4.5 ) Wt 63 kg (139 lb) SpO2 97% BMI 23.49 kg/m? APPEARANCE Well appearing, alert, in no acute distress, well-hydrated, well nourished. HEART RRR with normal S1 and S2, no murmurs LUNG clear to auscultation BREAST FEMALE no mass/nodule b/l, R scar to upper/radi (more content not included)... [facility] 08-16-2022 Miscellaneous Notes August 17, 2022 PID: [id number] Natalia Orozco [address] [place] [address] Dear Ms. Orozco, We are pleased to inform you that the results of your recent breast imaging exam on 08/16/2022 are normal. Early detection of cancer is very important. We also understand recommendations regarding breast cancer screening are controversial. Please discuss with your primary care provider which strategy is best for you and whether a mammogram is right for you. Your imaging studies and report will be kept on file at [facility] as part of your permanent medical record and are available for your continuing care. Thank you for allowing us to help in meeting your health care needs. Sincerely, Dr. Leavitt Interpreting Radiologist [facility] (Normal over 40) documented in this encounter [facility] 08-16-2022 Note HNO ID: [id number] Author: RT Jj(R) Service: ? Author Type: Technologist Type: Progress Notes Filed: 08/16/2022 11:50 AM Note Text: Radiology Service Progress Note PATIENT NAME: Natalia Orozco DATE OF SERVICE: August 16, 2022 TIME: 11:50 AM PATIENT IDENTITY VERIFICATION COMPLETED USING TWO (2) IDENTIFIERS: Name and Date of confirmed by patient verbally. FALL SCREENING: Has the patient had 2 falls in the last year or 1 fall with injury or currently using an Ambulatory Assistive Device (Walker, Cane, Wheelchair, Crutches, etc.)? No PATIENT GENDER DATA: Female. status: : No status: NO. PATIENT RELEVANT IMPLANT DATA REVIEWED: Not Applicable RADIOLOGY DEPARTMENT: Mammography PERIPHERAL IV DATA: Not applicable SIGNED BY: RT Jj(R) August 16, 2022 11:50 AM [facility] 08-16-2022 History of Presen t illness Narrative Radiology Service Progress Note PATIENT NAME: Natalia Orozco DATE OF SERVICE: August 16, 2022 TIME: 11:50 AM PATIENT IDENTITY VERIFICATION COMPLETED USING TWO (2) IDENTIFIERS: Name and Date of confirmed by patient verbally. FALL SCREENING: Has the patient had 2 falls in the last year or 1 fall with injury or currently using an Ambulatory Assistive Device (Walker, Cane, Wheelchair, Crutches, etc.)? No PATIENT GENDER DATA: Female. status: : No status: NO. PATIENT RELEVANT IMPLANT DATA REVIEWED: Not Applicable RADIOLOGY DEPARTMENT: Mammography PERIPHERAL IV DATA: Not applicable SIGNED BY: RT Jj(R) August 16, 2022 11:50 AM documented in this encounter [facility] 03-18-2022 Note . MICRO - Microbiology PROCEDURE: Acid Fast Bacilli Culture w Stain if Ind [*1] SOURCE: Tissue BODY SITE: COLLECTED DATE/TIME: 01/19/2022 12:38 EST RECEIVED DATE/TIME: 01/19/2022 23:02 EST START DATE/TIME: 01/19/2022 23:02 EST FREE TEXT SOURCE: FINAL REPORTS Final Report [] Verified Date/Time/Personnel: 03/18/2022 07:50 EST No growth of Acid Fast Bacilli PRELIMINARY REPORTS Preliminary Report [] Verified Date/Time/Personnel: 03/04/2022 13:52 EST No growth of Acid Fast Bacilli to date. Final report to follow at 8 weeks. STAINS AFS [] Verified Date/Time/Personnel: 01/20/2022 12:12 EST Acid Fast Smear from Concentrated Specimen: Negative Performing Locations *1: This test was performed at: [address], [facility]- , [facility] ([place]) 03-18-2022 Note . MICRO - Microbiology PROCEDURE: Acid Fast Bacilli Culture w Stain if Ind [*1] SOURCE: Tissue BODY SITE: COLLECTED DATE/TIME: 01/19/2022 12:55 EST RECEIVED DATE/TIME: 01/19/2022 22:22 EST START DATE/TIME: 01/19/2022 22:22 EST FREE TEXT SOURCE: FINAL REPORTS Final Report [] Verified Date/Time/Personnel: 03/18/2022 07:49 EST No growth of Acid Fast Bacilli PRELIMINARY REPORTS Preliminary Report [] Verified Date/Time/Personnel: 03/04/2022 13:52 EST No growth of Acid Fast Bacilli to date. Final report to follow at 8 weeks. STAINS AFS [] Verified Date/Time/Personnel: 01/20/2022 12:11 EST Acid Fast Smear from Concentrated Specimen: Negative Performing Locations *1: This test was performed at: [address], [facility]- , [facility] ([place]) 02-23-2022 Note . MICRO - Microbiology PROCEDURE: Fungal Culture with Stain if Ind [*1] SOURCE: Tissue BODY SITE: COLLECTED DATE/TIME: 01/19/2022 12:38 EST RECEIVED DATE/TIME: 01/19/2022 23:02 EST START DATE/TIME: 01/19/2022 23:02 EST FREE TEXT SOURCE: FINAL REPORTS Final Report [] Verified Date/Time/Personnel: 02/23/2022 12:16 EST No fungus isolated in 4 weeks. PRELIMINARY REPORTS Preliminary Report [] Verified Date/Time/Personnel: 01/22/2022 09:09 EST No fungus isolated to date. Final report to follow. STAINS FUNSM [] Verified Date/Time/Personnel: 01/20/2022 12:13 EST No fungal elements observed by calcofluor white stain. Performing Locations *1: This test was performed at: [address], [address]- , [facility] 02-23-2022 Note . MICRO - Microbiology PROCEDURE: Fungal Culture with Stain if Ind [*1] SOURCE: Tissue BODY SITE: COLLECTED DATE/TIME: 01/19/2022 12:55 EST RECEIVED DATE/TIME: 01/19/2022 22:22 EST START DATE/TIME: 01/19/2022 22:22 EST FREE TEXT SOURCE: FINAL REPORTS Final Report [] Verified Date/Time/Personnel: 02/23/2022 12:16 EST No fungus isolated in 4 weeks. PRELIMINARY REPORTS Preliminary Report [] Verified Date/Time/Personnel: 01/22/2022 09:09 EST No fungus isolated to date. Final report to follow. STAINS FUNSM [] Verified Date/Time/Personnel: 01/20/2022 12:13 EST No fungal elements observed by calcofluor white stain. Performing Locations *1: This test was performed at: [address], [facility]- , [facility] ([place]) 02-08-2022 Miscellaneous Notes Patient has been identified by name and date of : Yes Requested Prescriptions Pending Prescriptions Disp Refills gabapentin (NEURONTIN) 100 mg capsule 180 capsule 3 Sig: Take one capsule po twice daily. RX INSTRUCTIONS: Patient aware RX will be sent to pharmacy. No need to notify patient. Cheri Hearn LPN documented in this encounter [facility] 01-26-2022 Note . MICRO - Microbiology PROCEDURE: Culture Tissue [*1] SOURCE: Tissue BODY SITE: Hip COLLECTED DATE/TIME: 01/19/2022 12:38 EST RECEIVED DATE/TIME: 01/19/2022 23:02 EST START DATE/TIME: 01/19/2022 23:02 EST FREE TEXT SOURCE: FINAL REPORTS Final Report [] Verified Date/Time/Personnel: 01/26/2022 07:46 EST No growth at 7 days. PRELIMINARY REPORTS Preliminary Report [] Verified Date/Time/Personnel: 01/20/2022 11:08 EST No growth to date STAINS GS [] Verified Date/Time/Personnel: 01/20/2022 00:08 EST No organisms seen. Performing Locations *1: This test was performed at: [address], [address]- , [facility] 01-26-2022 Note . MICRO - Microbiology PROCEDURE: Culture Tissue [*1] SOURCE: Tissue BODY SITE: Hip COLLECTED DATE/TIME: 01/19/2022 12:55 EST RECEIVED DATE/TIME: 01/19/2022 22:22 EST START DATE/TIME: 01/19/2022 22:22 EST FREE TEXT SOURCE: FINAL REPORTS Final Report [] Verified Date/Time/Personnel: 01/26/2022 07:46 EST No growth at 7 days. PRELIMINARY REPORTS Preliminary Report [] Verified Date/Time/Personnel: 01/20/2022 11:07 EST No growth to date STAINS GS [] Verified Date/Time/Personnel: 01/20/2022 00:11 EST 4+ Red Blood Cells 2+ Polymorphonuclear cells Rare Mononuclear cells No organisms seen. Performing Locations *1: This test was performed at: [address], [address]- , [facility] ([place]) 01-20-2022 Note Discharge Instructions Thank you for allowing [facility] to assist you with your healthcare needs. The following is important discharge information regarding your hospital visit. Your Care Team [facility] Your Diagnosis Anemia History of revision of total replacement of left hip joint What to do next Follow Up Appointments Follow Up with RUTHANN FAUSTIN MD When 02/03/2022 11:00 AM EST Why: This is your post-op follow-up appointment with your PCP to get your blood work results. It is with AYLA Vasquez. Where: [address] [place] [address] [phone] Follow Up with [facility] When 02/02/2022 10:45 AM EST Why: This is your post-op appointment. Follow-up as scheduled. [facility] [address] [facility] [address] [facility] [place] [address]- [phone] Business (1) Follow Up with [facility] When 01/22/2022 01:30 PM EST Why: This is your first physical therapy appointment. Follow-up as scheduled. Where: [address] [place] [phone] The Following Activity and Diet Have Been Ordered for You FOLLOW POST-OP INSTRUCTIONS The Following Treatments Have Been Ordered for You Discharge Labs Discharge Outpatient Labwork - Ordered -- CBC, anemia, follow-up within: 2 weeks, Results Notify to: RUTHANN FAUSTIN MD, 01/20/22 8:16:00 EST Discharge Radiology No qualifying data available. Other Therapies No qualifying data available. Post Acute Orders No qualifying data available. Allergies Reglan (Tardive dyskinesia) Medications Please ask your primary doctor or pharmacist before taking any other medication not listed, including over the counter drugs, herbal medications, vitamins and or supplements as they may interact with your home medications. What How Much When Why Instructions Last Dose New acetaminophen (acetaminophen 500 mg oral tablet) 2 tab(s) by mouth Three (3) times a day as needed for as needed for pain not to exceed 3000 mg/ day Pickup at [facility] 01/20/22 @ 1120AM New docusate-senna (Senokot S 50 mg-8.6 mg oral tablet) 2 tab(s) by mouth Two (2) times a day Take until first bowel movement, then as needed Pickup at [facility] 01/20/22 @ 828AM New doxycycline (doxycycline hyclate 100 mg oral capsule) 1 cap by mouth Every 12 hours Duration: 14 Days Pickup at [facility] 01/20/22 @ 828AM New famotidine (Pepcid 20 mg oral tablet) 1 tab(s) by mouth Once a day Pickup at [facility] 01/20/22 @ 828AM New ferrous sulfate (ferrous sulfate 325 mg (65 mg elemental iron) oral tablet) 1 tab(s) by mouth Two (2) times a day Anemia Duration: 14 Days Pickup at [facility] 01/20/22 @ 1120AM New rivaroxaban (Xarelto 10 mg oral tablet) 1 tab(s) by mouth Once a day Duration: 13 Days Take for 2 weeks postoperatively for DVT prophylaxis Pickup at [facility] [facility] 01/20/22 @ 828AM New traMADol (Ultram 50 mg oral tablet) See instructions History of revision of total replacement of left hip joint 1-2 tab(s) Oral q6h [facility] 01/20/22 @ 951AM Unchanged anastrozole (Arimidex 1 mg oral tablet) 1 tab(s) by mouth Every day 01/20/22 @ 828AM Unchanged atorvastatin (Lipitor 10 mg oral tablet) 1 tab(s) by mouth Once a day (in the evening) 01/19/22 @940PM Unchanged calcium citrate 500 Milligram by mouth Two (2) times a day NOT GIVEN Unchanged cholecalciferol (Vitamin D3 50 mcg (2000 intl units) oral tablet) 1 tab(s) by mouth Every day NOT GIVEN Unchanged diphenhydrAMINE (Benadryl 25 mg oral tablet) 0.5 tab(s) by mouth Daily at bedtime NOT GIVEN Unchanged docusate (Colace 100 mg oral capsule) 2 cap by mouth Daily at bedtime 01/20/22 @ 828AM Unchanged folic acid 800 Milligram by mouth Once a day 01/20/22 @ 828AM Unchanged gabapentin (Neurontin 100 mg oral capsule) 1 cap by mouth Two (2) times a day 01/20/22 @ 828AM Unchanged gabapentin (Neurontin 300 mg oral capsule) 1 cap by mouth Daily at bedtime Takes with evening 100 mg dose 01/19/22 @940PM Unchanged levothyroxine (Synthroid 75 mcg (0.075 mg) oral tablet) 1 tab(s) by mouth Once a day before a meal 01/20/22 @ 611AM Unchanged metFORMIN (MetFORMIN (Eqv-Fortamet) 500 mg oral tablet, EXTENDED RELEASE) 1 tab(s) by mouth Two (2) times a day NOT GIVEN Unchanged multivitamin (Multivitamin) 1 tab(s) by mouth Every day 01/20/22 @ 1120AM Pharmacy Information [facility]: [address], [place] [phone] What How Much When Comments Stop Taking diclofenac (diclofenac sodium 75 mg oral delayed release tablet) 1 tab(s) by mouth Two (2) times a day Please take this list to your next doctor s visit. Bring all medications you take, including over the counter medications, herbals and other supplements with you to your doctor s visit. Patients and families are reminded to discard old lists and to update any records with all medication providers or retail pharmacies. Education Materials [facility] Post-operative Instructions PLEASE FOLLOW [facility] POST-OP INSTRUCTIONS GIVEN WATCH FOR SIGNS OF INFECTION: call the office ([phone]) if experencing any of the following: (Usually appears 36-48 hours after surgery) Increased temperature (101 degrees Fahrenheit or higher) Redness or swelling Increased uncontrolled pain Foul odor or drainage Calf discomfort Significant swelling Or if having any chest pain, shortness of breath, or difficulty breathing or swallowing call the office or go the nearest Emergency Room. If you have any questions, please call your doctor at the number listed on your follow up instructions. Form: 338A (26165) R: 06/27 Additional Information VACCINATE! IT SAVES LIVES! Members of the community who have not yet received the COVID-19 vaccine and would like to receive it can visit one of [facility] vaccine clinics. There are many vaccine clinic locations within the [facility]. For locations and available times, please visit [email or web address] [email or web address] It is important to note that some COVID mobile vaccine clinics are held outdoors and may be canceled in rainy or stormy conditions. To learn more about pediatric vaccinations (ages 5-11), we invite you to visit the [facility] webpage. [email or web address] [email or web address]-[email or web address] [email or web address].[email or web address] To learn more about the COVID-19 vaccine, we invite you to visit the [facility] website for a list of frequently asked questions. [email or web address] [email or web address] [facility] Patient Portal Access Instructions: Stay connected with your healthcare team and access your personal medical information anytime with the [facility] Patient Portal.If you would like a full copy of your medical records, please contact the [facility] Medical Records Department, Tuesday through Tuesday between 8a.m. and 4:30p.m. Please follow the directions below to access the portal: 1.Access the email account you provided upon registration to the [facility].2.Look for an invitation email from [facility].3.Open the email and access the invitation link: Accept Invitation to [facility]4.Fill in the required velasquez to create your account. Sign into [email or web address] with your username and password that you created in the above steps to stay up to date. You can then view a summary of results, a summary of your visits, and the ability to download your summaries to your computer or send the information securely to a physician. Remember that your healthcare information is confidential, so carefully consider who you will allow to register on the [facility] Patient Portal for access to your information. You can also access the [facility] Patient Portal on the [employer]. Simply click on Health Records under Health Data and then click on the [facility] logo. HOW TO SAFELY DISPOSE OF PRESCRIPTION MEDICATIONS Please use one of the following methods to safely dispose of your unused medications. 1.Use a drug disposal kit: the drug disposal pouch allows you to safely discard your old and unused drugs. Ask your nurse to give you one when you are discharged.2.Visit a local take-back location: Many local pharmacies and police departments have programs that collect old and unwanted prescription drugs. Call your local pharmacy or go to http://bit.ly/2R5Rl9o to find one close to you.3.Make use of household items: Use cat litter or old coffee grounds to dispose medications if other options are not available. Mix your drugs with these household products, seal them in an airtight container and throw it into the garbage. Call [facility]: [phone] to be sure your drugs can be disposed of in this way. Some medicines may require a different approach.4.Never flush your medications down the toilet. IF YOU HAVE BEEN PRESCRIBED AN OPIOID FOR PAIN If you have been prescribed an opioid (such as hydrocodone, oxycodone or morphine), it is critical to understand the possible side effects and risks of opioid pain medications. Even when taken as directed, opioids can have several side effects including: Tolerance, meaning you might need to take more of a medication for the same pain relief. Nausea, vomiting and/or constipation. Sleepiness, dizziness, dry mouth, confusion, depression or itching. Physical dependence, meaning you have withdrawal symptoms when a medication is stopped, can develop within a few days. KNOW YOUR RESPONSIBILITIES It is important to know exactly how much and how often to take the opioid pain medications you are prescribed. Never take opioids in higher amounts or more often than prescribed. Do not combine opioids with alcohol or other drugs that cause drowsiness, such as benzodiazepines, also known as benzos, including diazepam and alprazolam, muscle relaxants or sleep aids. Never sell or share prescription opioids. This is illegal. Store opioids in a secure place and out of reach of others (including children, family, friends and visitors). The last page of this document has been signed and retained as a CHART COPY. Signatures Patient Education Materials Lissa Luong Post-op Instruction 09/2016 (78916) Medication Leaflets My discharge plan and instructions have been reviewed and explained to me and IPAM ANN M understand my current condition and have read and understand these discharge instructions. I have received a written copy of the plan/instructions. If I have questions, I am aware that I should contact my doctor. 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: Date/Time: Relationship to Patient: Witness Name/Signature: Date/Time: [facility] 01-20-2022 Hospital Discharg e instructions Patient Education 01/20/2022 07:40:51 5 - [facility] Post-op Instruction 09/2016 (02416) [facility] Post-operative Instructions PLEASE FOLLOW [facility] POST-OP INSTRUCTIONS GIVEN WATCH FOR SIGNS OF INFECTION: call the office ([phone]) if experencing any of the following: (Usually appears 36-48 hours after surgery) Increased temperature (101 degrees Fahrenheit or higher) Redness or swelling Increased uncontrolled pain Foul odor or drainage Calf discomfort Significant swelling Or if having any chest pain, shortness of breath, or difficulty breathing or swallowing call the office or go the nearest Emergency Room. If you have any questions, please call your doctor at the number listed on your follow up instructions. Form: 338A (21495) R: 06/27 Follow Up Care 2021 14:25:12 With:[facility] Address: [address] [place] [phone] When:01/22/2022 13:30:00 Comments:This is your first physical therapy appointment. Follow-up as scheduled. With:[facility] Address: [address] [place] [address] [address] [facility], [place] [address]- [phone] Business (1) When:02/02/2022 10:45:00 Comments:This is your post-op appointment. Follow-up as scheduled. With:RUTHANN FAUSTIN MD Address: [address] [place] [phone] When:02/03/2022 11:00:00 Comments:This is your post-op follow-up appointment with your PCP to get your blood work results. It is with AYLA Vasquez. [facility] 01-20-2022 Note Date of Service January 20, 2022 Subjective The patient was sitting in bed upon examination. Patient denies any chest pain, shortness of breath, dizziness, lightheadedness, nausea or vomiting, or calf pain. No adverse overnight events. Pain has been controlled on medications. Patient states she is doing very well this morning. She has minimal pain. She denies any chest pain or shortness of breath. Objective Vitals and Measurements T: 36.9 C (Oral) TMIN: 36 C TMAX: 36.9 C (Oral) HR: 89(Monitored) RR: 18 BP: 96/56 BP: 128/72(Left Arm) SpO2: 95% HT: 165.1 cm WT: 61.4 kg BMI: 22.53 Intake and Output 7AM Yesterday to 7AM Today Intake and Output (Last 24 hours) Intake Administration Information 1362.42 Oral Intake 700.00 Supplement Intake 240.00 Output Intra-Op EBL 200.00 Urine Count 3.00 Total Summary Total Intake 2302.42 Total Output 200.00 Fluid Balance 2102.42 Physical Exam Vital signs stable, afebrile: Couple readings of lower blood pressure but patient asymptomatic. SCDs and JOVANNI hose are in place bilaterally Left thigh is soft and supple Patient is able to plantarflex and dorsiflex actively Sensation is intact to saphenous, sural, superficial and deep peroneal, and tibial distribution Dressing is clean dry and intact Negative signs and symptoms of DVT, negative Homans bilaterally Weight Dosing Weight: 61.4 kg (01/19/22) Dosing Weight: 61.4 kg (01/19/22) Medications Medications (29) Active Scheduled: (19) acetaminophen 500 mg Tablet 1,000 mg 2 tab(s), Oral, q6h anastrozole 1 mg tablet 1 mg 1 tab(s), Oral, Daily atorvastatin 10 mg tablet 10 mg 1 tab(s), Oral, qPM bisacodyl 5 mg EC tablet 10 mg 2 tab(s), Oral, Once docusate sodium 100 mg Capsule 100 mg 1 cap(s), Oral, BID docusate-senna (Senokot S) 50 mg-8.6 mg Tablet 2 tab(s), Oral, BID doxycycline hyclate 100 mg Capsule 100 mg 1 cap(s), Oral, q12h famotidine 20 mg tablet 20 mg 1 tab(s), Oral, qDay ferrous sulfate 325 mg Tablet 325 mg 1 tab(s), Oral, BID folic acid 1 mg tablet 1 mg 1 tab(s), Oral, qDay gabapentin 100 mg Capsule 100 mg 1 cap(s), Oral, BID gabapentin 300 mg Capsule 300 mg 1 cap(s), Oral, qHS insulin lispro 100 units/mL Soln (3 mL) Give 0-5 units/dose, Subcutaneous, TIDAC levothyroxine 75 mcg tablet 75 mcg 1 tab(s), Oral, qDayAC magnesium hydroxide 8% Suspension 30 mL UD 30 mL, Oral, Daily multivitamin (Myadec) with minerals Therapeutic Multiple Vitamins with Minerals Tablet 1 tab(s), Oral, qDayM ondansetron 2 mg/ 1 mL 2 mL INJ 4 mg 2 mL, IV Push, q8h rivaroxaban 10 mg tablet 10 mg 1 tab(s), Oral, qDay tramadol 50 mg Tablet 50 mg 1 tab(s), Oral, q6hr Continuous: (1) Lactated Ringers 1000 mL 1,000 mL, Intravenous, 20 mL/hr PRN: (9) acetaminophen 325 mg Tablet 650 mg 2 tab(s), Oral, q4h diphenhydramine 25 mg tablet 25 mg 1 tab(s), Oral, q6h diphenhyDRAMINE 50 mg/mL (1 mL) INJ 25 mg 0.5 mL, IV Push, q6h ketorolac 30 mg/mL (1 mL) vial 15 mg 0.5 mL, IV Push, q6h morphine 2 mg/mL 1 mL syringe 2 mg 1 mL, IV Push, q1h ondansetron 2 mg/ 1 mL 2 mL INJ 4 mg 2 mL, IV Push, q8h prochlorperazine 10 mg/2 mL vial 5 mg 1 mL, IV Push, q6h sodium biphosphate-sodium phosphate 19 gm-7 gm Enema 133 mL, Rectal, qDay tramadol 50 mg Tablet 50 mg 1 tab(s), Oral, q6h Lab Results 01/20 05:14 WBC: 18.1 H Hgb: 10.5 L Hct: 30.8 L Platelet: 299 Neutrophil %: 77.5 Glucose Level: 113 Sodium Level: 140 Potassium Level: 4.0 BUN: 14 Creatinine Lvl (s): 0.85 EKG No qualifying data available. Assessment/Plan Anemia Ordered: ferrous sulfate, Start: 01/20/22 7:33:00 EST, Dose = 325 mg, = 1 tab(s), Oral, BID, 01/20/22 7:33:00 EST 1. Status post revision left total hip arthroplasty postop day #1 2. Continue pain medications: Tylenol and tramadol. 3. DVT prophylaxis: Patient will be placed on Xarelto for 2 weeks postoperatively due to patient currently taking anastrozole. She will require 2 weeks of Xarelto followed by additional 2 weeks of aspirin 81 mg twice daily. This was discussed in detail with the patient. She voiced understanding agreement. I also recommended she avoid taking the nonsteroidal anti-inflammatory diclofenac at home unless absolutely necessary. She is aware there are increased risk of bleeding. 4. Physical therapy: Weightbearing as tolerated with walker. Anterior hip precautions 5. H & H: 10.5/30.8, asymptomatic. Postoperative acute on chronic anemia secondary to acute blood loss from surgery without intraoperative complications. It is documented in patient's primary care physician clearance she has history of anemia. She currently takes folic acid but does not take ferrous sulfate. Ferrous sulfate was added and we will have patient repeat lab work in 1 to 2 weeks and follow-up with the primary care physician for continued treatment. Lab work will be placed on chart. She voiced understanding agreement with treatment plan. 6. Reactive leukocytosis: Currently 18.1, afebrile. Patient did receive Decadron intraoperatively 7. Encouraged incentive spirometry 8. Continue postoperative medical management per medicine 9. Disposition: Plan will be for discharge home today as long as patient is cleared by medicine, tolerates therapy, and pain is well controlled. Lab work order will be placed on chart. Case management will schedule follow-up with primary care physician in 2 weeks. Patient would like her prescriptions E scribed to [facility] in [facility]. She has outpatient physical therapy established. She will follow-up per postop instructions. She will contact her office upon discharge with any concerns or questions. OARRS report was attempted but there is an error with the system. This dictation was created using voice recognition software. Phonetic and/or grammatical errors may exist. Digitally Signed by LORENZO BELL PA-C on 01/20/2022 07:39 AM [facility] 01-19-2022 Note ORIGINAL [facility] 01-19-2022 Note ORIGINAL [facility] 01-19-2022 Note ORIGINAL EXAMINATION: 2 XRAY VIEWS OF THE LEFT HIP. 1 VIEWS OF THE PELVIS. COMPARISON: None. HISTORY: ORDERING SYSTEM PROVIDED HISTORY: Reason for Exam: Status Post Arthroplasty FINDINGS: Patient is status post left total hip arthroplasty. There is no evidence of hardware complication. Right total hip arthroplasty changes are also seen, partially visible without evidence of hardware complication. The pelvic ring is intact. The visible sacrum is unremarkable. Mild osteophytosis noted of bilateral sacroiliac joints. Unremarkable pubic symphysis. Moderate degenerative changes of the lumbar spine with prominent levocurvature. There are expected postoperative change of the soft tissues about the left hip with soft tissue gas and gas of the left hip joint. Soft tissue swelling is also evident. IMPRESSION: 1. Left total hip arthroplasty without evidence of hardware complication. Expected postoperative changes of the soft tissues about the left hip. 2. Partially visible right hip arthroplasty without evidence of hardware complication. 3. Polyarticular degenerative change, as above. Interpreted by: Herb Ramírez DO Preliminary Report By: Herb Ramírez DO Electronically signed By Herb Ramírez DO Dictated Date: 01/19/2022 3:00:47 PM Prelim Date: 01/19/2022 3:04:31 PM Sign Date: 01/19/2022 3:04:31 PM Ordering Provider: [facility] 01-19-2022 Note ORIGINAL EXAMINATION: 2 XRAY VIEWS OF THE LEFT HIP. 1 VIEWS OF THE PELVIS. COMPARISON: None. HISTORY: ORDERING SYSTEM PROVIDED HISTORY: Reason for Exam: Status Post Arthroplasty FINDINGS: Patient is status post left total hip arthroplasty. There is no evidence of hardware complication. Right total hip arthroplasty changes are also seen, partially visible without evidence of hardware complication. The pelvic ring is intact. The visible sacrum is unremarkable. Mild osteophytosis noted of bilateral sacroiliac joints. Unremarkable pubic symphysis. Moderate degenerative changes of the lumbar spine with prominent levocurvature. There are expected postoperative change of the soft tissues about the left hip with soft tissue gas and gas of the left hip joint. Soft tissue swelling is also evident. IMPRESSION: 1. Left total hip arthroplasty without evidence of hardware complication. Expected postoperative changes of the soft tissues about the left hip. 2. Partially visible right hip arthroplasty without evidence of hardware complication. 3. Polyarticular degenerative change, as above. Interpreted by: Herb Ramírez DO Preliminary Report By: Herb Ramírez DO Electronically signed By Herb Ramírez DO Dictated Date: 01/19/2022 3:00:47 PM Prelim Date: 01/19/2022 3:04:31 PM Sign Date: 01/19/2022 3:04:31 PM Ordering Provider: STACI AVINA [facility] 01-19-2022 Anesthesiology Consult note Patient: NATALIA OROZCO Age: 66 years Sex: Female : 1955 Associated Diagnoses: None Author: CLAUDINE MCGINNIS PSYCHOLOGICAL EXAMINER-PROFESSOR OF LAW Assessment Postanesthesia assessment Vitals: Vital signs from flowsheet : Vital Signs 01/19/2022 13:55 EST Heart Rate Monitored 81 bpm bpm Respiratory Rate - Anes 14 br/min br/min Systolic Blood Pressure Non-Invasive 102 mmHg mmHg Diastolic Blood Pressure Non-Invasive 50 mmHg mmHg 01/19/2022 13:50 EST Heart Rate Monitored 80 bpm bpm Respiratory Rate - Anes 10 br/min br/min Systolic Blood Pressure Non-Invasive 107 mmHg mmHg Diastolic Blood Pressure Non-Invasive 52 mmHg mmHg 01/19/2022 13:49 EST Systolic Blood Pressure Non-Invasive 109 mmHg mmHg Diastolic Blood Pressure Non-Invasive 52 mmHg mmHg 01/19/2022 13:45 EST Heart Rate Monitored 81 bpm bpm Respiratory Rate - Anes 13 br/min br/min Systolic Blood Pressure Non-Invasive 81 mmHg mmHg Diastolic Blood Pressure Non-Invasive 37 mmHg mmHg 01/19/2022 13:40 EST Heart Rate Monitored 83 bpm bpm Respiratory Rate - Anes 12 br/min br/min Systolic Blood Pressure Non-Invasive 95 mmHg mmHg Diastolic Blood Pressure Non-Invasive 45 mmHg mmHg 01/19/2022 13:35 EST Heart Rate Monitored 81 bpm bpm Respiratory Rate - Anes 11 br/min br/min Systolic Blood Pressure Non-Invasive 129 mmHg mmHg Diastolic Blood Pressure Non-Invasive 56 mmHg mmHg 01/19/2022 13:30 EST Temperature (Route Not Specified) 36 DegC DegC Heart Rate Monitored 68 bpm bpm Respiratory Rate - Anes 12 br/min br/min Systolic Blood Pressure Non-Invasive 120 mmHg mmHg Diastolic Blood Pressure Non-Invasive 56 mmHg mmHg 01/19/2022 13:25 EST Heart Rate Monitored 64 bpm bpm Respiratory Rate - Anes 12 br/min br/min Systolic Blood Pressure Non-Invasive 129 mmHg mmHg Diastolic Blood Pressure Non-Invasive 57 mmHg mmHg 01/19/2022 13:20 EST Heart Rate Monitored 63 bpm bpm Respiratory Rate - Anes 13 br/min br/min Systolic Blood Pressure Non-Invasive 119 mmHg mmHg Diastolic Blood Pressure Non-Invasive 62 mmHg mmHg 01/19/2022 13:15 EST Temperature (Route Not Specified) 36 DegC DegC Heart Rate Monitored 70 bpm bpm Respiratory Rate - Anes 11 br/min br/min Systolic Blood Pressure Non-Invasive 97 mmHg mmHg Diastolic Blood Pressure Non-Invasive 48 mmHg mmHg 01/19/2022 13:10 EST Heart Rate Monitored 73 bpm bpm Respiratory Rate - Anes 13 br/min br/min Systolic Blood Pressure Non-Invasive 103 mmHg mmHg Diastolic Blood Pressure Non-Invasive 49 mmHg mmHg 01/19/2022 13:05 EST Heart Rate Monitored 75 bpm bpm Respiratory Rate - Anes 11 br/min br/min Systolic Blood Pressure Non-Invasive 93 mmHg mmHg Diastolic Blood Pressure Non-Invasive 48 mmHg mmHg 01/19/2022 13:00 EST Temperature (Route Not Specified) 36 DegC DegC Heart Rate Monitored 73 bpm bpm Respiratory Rate - Anes 12 br/min br/min Systolic Blood Pressure Non-Invasive 100 mmHg mmHg Diastolic Blood Pressure Non-Invasive 54 mmHg mmHg 01/19/2022 12:57 EST Systolic Blood Pressure Non-Invasive 101 mmHg mmHg Diastolic Blood Pressure Non-Invasive 52 mmHg mmHg 01/19/2022 12:55 EST Heart Rate Monitored 80 bpm bpm Respiratory Rate - Anes 13 br/min br/min Systolic Blood Pressure Non-Invasive 82 mmHg mmHg Diastolic Blood Pressure Non-Invasive 40 mmHg mmHg 01/19/2022 12:50 EST Heart Rate Monitored 78 bpm bpm Respiratory Rate - Anes 11 br/min br/min Systolic Blood Pressure Non-Invasive 90 mmHg mmHg Diastolic Blood Pressure Non-Invasive 44 mmHg mmHg 01/19/2022 12:45 EST Temperature (Route Not Specified) 36 DegC DegC Heart Rate Monitored 72 bpm bpm Respiratory Rate - Anes 8 br/min br/min Systolic Blood Pressure Non-Invasive 85 mmHg mmHg Diastolic Blood Pressure Non-Invasive 41 mmHg mmHg 01/19/2022 12:40 EST Heart Rate Monitored 72 bpm bpm Respiratory Rate - Anes 12 br/min br/min Systolic Blood Pressure Non-Invasive 94 mmHg mmHg Diastolic Blood Pressure Non-Invasive 50 mmHg mmHg 01/19/2022 12:35 EST Heart Rate Monitored 73 bpm bpm Respiratory Rate - Anes 12 br/min br/min Systolic Blood Pressure Non-Invasive 84 mmHg mmHg Diastolic Blood Pressure Non-Invasive 40 mmHg mmHg 01/19/2022 12:30 EST Temperature (Route Not Specified) 36 DegC DegC Heart Rate Monitored 75 bpm bpm Respiratory Rate - Anes 10 br/min br/min Systolic Blood Pressure Non-Invasive 99 mmHg mmHg Diastolic Blood Pressure Non-Invasive 50 mmHg mmHg 01/19/2022 12:25 EST Heart Rate Monitored 71 bpm bpm Respiratory Rate - Anes 12 br/min br/min Systolic Blood Pressure Non-Invasive 95 mmHg mmHg Diastolic Blood Pressure Non-Invasive 45 mmHg mmHg 01/19/2022 12:20 EST Heart Rate Monitored 71 bpm bpm Respiratory Rate - Anes 10 br/min br/min Systolic Blood Pressure Non-Invasive 84 mmHg mmHg Diastolic Blood Pressure Non-Invasive 44 mmHg mmHg 01/19/2022 12:15 EST Temperature (Route Not Specified) 36 DegC DegC Heart Rate Monitored 62 bpm bpm Respiratory Rate - Anes 12 br/min br/min Systolic Blood Pressure Non-Invasive 99 mmHg mmHg Diastolic Blood Pressure Non-Invasive 52 mmHg mmHg 01/19/2022 12:10 EST Heart Rate Monitored 69 bpm bpm Respiratory Rate - Anes 22 br/min br/min Systolic Blood Pressure Non-Invasive 95 mmHg mmHg Diastolic Blood Pressure Non-Invasive 44 mmHg mmHg 01/19/2022 12:06 EST Systolic Blood Pressure Non-Invasive 103 mmHg mmHg Diastolic Blood Pressure Non-Invasive 60 mmHg mmHg 01/19/2022 12:05 EST Heart Rate Monitored 76 bpm bpm Respiratory Rate - Anes 7 br/min br/min 01/19/2022 12:00 EST Respiratory Rate - Anes 0 br/min br/min 01/19/2022 11:55 EST Respiratory Rate - Anes 0 br/min br/min 01/19/2022 10:19 EST Temperature Temporal Artery 36.6 DegC Apical Heart Rate 92 bpm Respiratory Rate 8 br/min Systolic BP Left Arm 128 mmHg Diastolic BP Left Arm 72 mmHg Systolic Blood Pressure Non-Invasive 128 mmHg Diastolic Blood Pressure Non-Invasive 72 mmHg , Measurements from flowsheet . Mental status: alert & oriented x 4. Respiratory function: respirations are non-labored. Respiratory support: none. CV function: Normal rate. Cardiovascular support: none. Pain. Nausea status: see nursing documentation of medications. Postoperative hydration status: within normal limits. Digitally Signed by CLAUDINE MCGINNIS on 01/19/2022 02:05 PM [facility] 01-19-2022 Anesthesiology Consult note Patient: NATALIA OROZCO Age: 66 years Sex: Female : 1955 Associated Diagnoses: None Author: CLAUDINE MCGINNIS Preoperative Information Time of last food or liquid consumption: 01/19/2022 00:00:00 Anesthesia history Patient's history: negative. Family's history: negative. Health Status Allergies: Allergic Reactions (Selected) Severity Not Documented Reglan- Tardive dyskinesia., Allergies (1) ActiveReaction ReglanTardive dyskinesia Current medications: (Selected) Inpatient Medications Ordered Betadine 10% topical solution: 17.5 mL, mL/hr, Topical (INT), PREOP pharm Decadron: 10 mg, 1 mL, IV Push, AsDirected Demerol (PACU): 25 mg, 1 mL, IV Push, q5min, PRN: Pain, breakthrough Dilaudid: 0.25 mg, 0.25 mL, IV Push, q5min, PRN: Pain, scale 4-10 LR 1,000 mL: 20 mL/hr, Intravenous LR 1000 mL: 20 mL/hr, Intravenous, Stop: 01/20/22 17:59:00 EST Naropin 100 mg + Toradol 15 mg + EPINEPHrine 1 mg/mL injectable solution 0.3 mg + morphine 2.5 mg...: 100 mg, 20 mL, mL/hr, Other, PREOP pharm Naropin 100 mg + Toradol 15 mg + EPINEPHrine 1 mg/mL injectable solution 0.3 mg + morphine 2.5 mg...: 100 mg, 20 mL, mL/hr, Other, PREOP pharm Zofran ( PACU ): 4 mg, 2 mL, IV Push, AsDirected, PRN: Nausea/Vomiting albuterol 2.5 mg/3 mL (0.083%) inhalation solution: 2.5 mg, 3 mL, Inhalation, Once, PRN: Other (see order comments) tranexamic acid 1 g / 100 mL 0.7% NaCl PMX: 1 gram(s), 10 mL, 330 mL/hr, IV Piggyback, AsDirected tranexamic acid 1 g / 100 mL 0.7% NaCl PMX: 1 gram(s), 10 mL, 330 mL/hr, IV Piggyback, AsDirected Documented Medications Documented Benadryl: 25 mg, Oral, qHS, 0 Refill(s) Multivitamin: 1 tab(s), Oral, Daily, 0 Refill(s) Vitamin D3: 2000, Oral, qDay, 0 Refill(s) anastrozole: 1 mg, Oral, qDay, 0 Refill(s) atorvastatin: 10 mg, Oral, qDay, 0 Refill(s) calcium (as calcium citrate) 250 mg oral tablet: 2 TAB, Oral, BID, 0 Refill(s) diclofenac: 75 mg, Oral, BID, 0 Refill(s) docusate: 100 mg, Oral, BID, 0 Refill(s) folic acid: 800 mg, Oral, qDay, 0 Refill(s) gabapentin 300 mg oral capsule: 300 mg, 1 cap(s), Oral, qHS, 0 Refill(s) gabapentin: 100 mg, Oral, BID, 0 Refill(s) levothyroxine: 88 mcg, Oral, qDay, 0 Refill(s) metFORMIN 500 mg oral tablet (IR): 500 mg, 1 tab(s), Oral, BID, 0 Refill(s), Medications (12) Active Scheduled: (6) dexamethasone 10 mg/mL (1mL) SDV 10 mg 1 mL, IV Push, AsDirected povidone iodine topical 17.5 mL, Topical (INT), PREOP pharm ropivacaine 100 mg + ketorolac 15 mg + epinephrine 0.3 mg + morphine 2.5 mg 100 mg 20 mL, Other, PREOP pharm ropivacaine 100 mg + ketorolac 15 mg + epinephrine 0.3 mg + morphine 2.5 mg 100 mg 20 mL, Other, PREOP pharm tranexamic acid 1 gram(s) 10 mL, IV Piggyback, AsDirected tranexamic acid 1 gram(s) 10 mL, IV Piggyback, AsDirected Continuous: (2) Lactated Ringers 1,000 mL 1,000 mL, Intravenous, 20 mL/hr Lactated Ringers 1000 mL 1,000 mL, Intravenous, 20 mL/hr PRN: (4) albuterol 0.083% Soln UD (2.5mg/3 mL) 2.5 mg 3 mL, Inhalation, Once hydromorphone 1 mg/mL (1mL) INJ 0.25 mg 0.25 mL, IV Push, q5min meperidine 25 mg/mL 1 mL 25 mg 1 mL, IV Push, q5min ondansetron 2 mg/ 1 mL 2 mL INJ 4 mg 2 mL, IV Push, AsDirected Problem list: Active Problems (6) Breast cancer Diabetes High cholesterol Hypothyroid Neuropathy Osteoarthritis Histories Past Medical History: No active or resolved past medical history items have been selected or recorded. Family History: Diabetes mellitus type 2 Sister Heart attack Mother Aortic valve disorder Father Procedure history: Tubal ligation ([id number]). Hip arthroplasty ([id number]). Comments: 01/07/2022 11:12 Brianda Moreno RN RIGHT Oophorectomy ([id number]). Comments: 01/07/2022 11:11 Brianda Moreno RN RIGHT Hip arthroplasty ([id number]). Comments: 01/07/2022 11:12 Brianda Moreno RN LEFT Lumpectomy ([id number]). Social History Social & Psychosocial Habits Alcohol 01/07/2022 Use: Never Substance Abuse 01/07/2022 Use: Never Tobacco 01/07/2022 Tobacco Use: Never (less than 100 in l . Physical Examination Vital Signs 01/19/2022 12:45 EST Heart Rate Monitored 72 bpm bpm Respiratory Rate - Anes 8 br/min br/min 01/19/2022 12:40 EST Heart Rate Monitored 72 bpm bpm Respiratory Rate - Anes 12 br/min br/min Systolic Blood Pressure Non-Invasive 94 mmHg mmHg Diastolic Blood Pressure Non-Invasive 50 mmHg mmHg 01/19/2022 12:35 EST Heart Rate Monitored 73 bpm bpm Respiratory Rate - Anes 12 br/min br/min Systolic Blood Pressure Non-Invasive 84 mmHg mmHg Diastolic Blood Pressure Non-Invasive 40 mmHg mmHg 01/19/2022 12:30 EST Temperature (Route Not Specified) 36 DegC DegC Heart Rate Monitored 75 bpm bpm Respiratory Rate - Anes 10 br/min br/min Systolic Blood Pressure Non-Invasive 99 mmHg mmHg Diastolic Blood Pressure Non-Invasive 50 mmHg mmHg 01/19/2022 12:25 EST Heart Rate Monitored 71 bpm bpm Respiratory Rate - Anes 12 br/min br/min Systolic Blood Pressure Non-Invasive 95 mmHg mmHg Diastolic Blood Pressure Non-Invasive 45 mmHg mmHg 01/19/2022 12:20 EST Heart Rate Monitored 71 bpm bpm Respiratory Rate - Anes 10 br/min br/min Systolic Blood Pressure Non-Invasive 84 mmHg mmHg Diastolic Blood Pressure Non-Invasive 44 mmHg mmHg 01/19/2022 12:15 EST Temperature (Route Not Specified) 36 DegC DegC Heart Rate Monitored 62 bpm bpm Respiratory Rate - Anes 12 br/min br/min Systolic Blood Pressure Non-Invasive 99 mmHg mmHg Diastolic Blood Pressure Non-Invasive 52 mmHg mmHg 01/19/2022 12:10 EST Heart Rate Monitored 69 bpm bpm Respiratory Rate - Anes 22 br/min br/min Systolic Blood Pressure Non-Invasive 95 mmHg mmHg Diastolic Blood Pressure Non-Invasive 44 mmHg mmHg 01/19/2022 12:06 EST Systolic Blood Pressure Non-Invasive 103 mmHg mmHg Diastolic Blood Pressure Non-Invasive 60 mmHg mmHg 01/19/2022 12:05 EST Heart Rate Monitored 76 bpm bpm Respiratory Rate - Anes 7 br/min br/min 01/19/2022 12:00 EST Respiratory Rate - Anes 0 br/min br/min 01/19/2022 11:55 EST Respiratory Rate - Anes 0 br/min br/min 01/19/2022 10:19 EST Temperature Temporal Artery 36.6 DegC Apical Heart Rate 92 bpm Respiratory Rate 8 br/min Systolic BP Left Arm 128 mmHg Diastolic BP Left Arm 72 mmHg Systolic Blood Pressure Non-Invasive 128 mmHg Diastolic Blood Pressure Non-Invasive 72 mmHg Vital Signs(last 24 hrs) Last Charted Heart Rate [id number] bpm (JAN 19 12:45) Resp Rate C 8br/min (JAN 19 10:19) SBP94 mmHg (JAN 19 12:40) DBP50 mmHg (JAN 19 12:40) BMI22.53 (JAN 19 10:19) Measurements from flowsheet : Measurements 01/19/2022 10:19 EST Height 165.1 cm Admission Weight 61.4 kg Weight Method Stated [place] Body Weight 57.00 kg Body Mass Index 22.53 kg/m2 Body Mass Index 22.53 kg/m2 Pain assessment: Pain Assessment 01/19/2022 10:50 EST Primary Pain Intensity 0 01/19/2022 10:19 EST Primary Pain Intensity 0 Pain Scale Type 0-10 Pain scale . General: Alert and oriented. Airway: Normal temporomandibular joint mobility, Normal mouth, Normal neck range of motion. Mallampati classification: I (soft palate, fauces, uvula, pillars visible). Dentition Evaluation: Denies loose/chipped teeth. Respiratory: Respirations are non-labored. Cardiovascular: Normal rate. Neurologic: Alert, Oriented. Review / Management Results review: No qualifying data available , Lab results 01/19/2022 12:45 EST Heart Rate Monitored 72 bpm bpm Respiratory Rate - Anes 8 br/min br/min Oxygen Saturation 100 % % 01/19/2022 12:40 EST Heart Rate Monitored 72 bpm bpm Respiratory Rate - Anes 12 br/min br/min Systolic Blood Pressure Non-Invasive 94 mmHg mmHg Diastolic Blood Pressure Non-Invasive 50 mmHg mmHg Oxygen Saturation 100 % % 01/19/2022 12:39 EST SN - Cul - Culture Type Tissue in Formalin SN - Cul - Kind Specimen 01/19/2022 12:35 EST Heart Rate Monitored 73 bpm bpm Respiratory Rate - Anes 12 br/min br/min Systolic Blood Pressure Non-Invasive 84 mmHg mmHg Diastolic Blood Pressure Non-Invasive 40 mmHg mmHg Oxygen Saturation 100 % % phenylephrine 100 mcg mcg 01/19/2022 12:30 EST SN - CTm - Surgery Start 01/19/2022 12:24 01/19/2022 12:30 EST Temperature (Route Not Specified) 36 DegC DegC Heart Rate Monitored 75 bpm bpm Respiratory Rate - Anes 10 br/min br/min Systolic Blood Pressure Non-Invasive 99 mmHg mmHg Diastolic Blood Pressure Non-Invasive 50 mmHg mmHg Oxygen Saturation 100 % % phenylephrine 100 mcg mcg 01/19/2022 12:27 EST SN - CAt - Case Attendee SN - CAt - Case Attendee SN - CAt - Role Performed Woven Paper Hat Mender 01/19/2022 12:25 EST Heart Rate Monitored 71 bpm bpm Respiratory Rate - Anes 12 br/min br/min Systolic Blood Pressure Non-Invasive 95 mmHg mmHg Diastolic Blood Pressure Non-Invasive 45 mmHg mmHg Oxygen Saturation 100 % % phenylephrine 100 mcg mcg 01/19/2022 12:24 EST SN - CTm - Surgery Start Surgery Start 01/19/2022 12:20 EST Heart Rate Monitored 71 bpm bpm Respiratory Rate - Anes 10 br/min br/min Systolic Blood Pressure Non-Invasive 84 mmHg mmHg Diastolic Blood Pressure Non-Invasive 44 mmHg mmHg Oxygen Saturation 100 % % phenylephrine 100 mcg mcg 01/19/2022 12:19 EST SN - CAt - Case Attendee SN - CAt - Case Attendee SN - CAt - Role Performed Cell Saver Programming Equipment Operator 01/19/2022 12:15 EST Temperature (Route Not Specified) 36 DegC DegC Heart Rate Monitored 62 bpm bpm Respiratory Rate - Anes 12 br/min br/min Systolic Blood Pressure Non-Invasive 99 mmHg mmHg Diastolic Blood Pressure Non-Invasive 52 mmHg mmHg Oxygen Saturation 100 % % 01/19/2022 12:14 EST acetaminophen 1,000 mg mg dexamethasone 10 mg mg ondansetron 4 mg mg 01/19/2022 12:10 EST Heart Rate Monitored 69 bpm bpm Respiratory Rate - Anes 22 br/min br/min Systolic Blood Pressure Non-Invasive 95 mmHg mmHg Diastolic Blood Pressure Non-Invasive 44 mmHg mmHg Oxygen Saturation 100 % % Lactated Ringers Injection 1,000 mL mL 01/19/2022 12:08 EST SN - Proc - Anesthesia Type Spinal, MAC 01/19/2022 12:08 EST SN - Irl - Irrigant Normal Saline SN - Irl - Irrigant Normal Saline SN - Irl - Irrigant Sterile Water SN - IrI - Volume In 9,000 mL SN - IrI - Volume In 500 mL SN - IrI - Volume In 450 mL SN - Irl - Additive POVIDONE IODINE SN - Irl - Additive IRRIGATION CHG 0.05% IRRISEPT / [id number] SN - IrI - Volume Out 9,000 mL SN - IrI - Volume Out 500 mL SN - IrI - Volume Out 450 mL 01/19/2022 12:07 EST glycopyrrolate 0.2 mg mg 01/19/2022 12:06 EST SN - SP - Prep Agents Chloraprep SN - SP - HR - Method N/A 01/19/2022 12:06 EST Systolic Blood Pressure Non-Invasive 103 mmHg mmHg Diastolic Blood Pressure Non-Invasive 60 mmHg mmHg 01/19/2022 12:05 EST SN - PP - Body Position Supine Standard Intra-op 01/19/2022 12:05 EST Heart Rate Monitored 76 bpm bpm Respiratory Rate - Anes 7 br/min br/min Oxygen Saturation 97.8 % % cefazolin 2 gram(s) gram(s) Sodium Chloride 0.9% 100 mL mL 01/19/2022 12:04 EST SN - GCD - Post-operative Diagnosis RECURRENT DISLOCATION, LEFT HIP SN - GCD - Case Level Level 5 01/19/2022 12:03 EST SN - CAt - Case Attendee SN - CAt - Case Attendee SN - CAt - Role Performed Physician Campus Security Officer 01/19/2022 12:03 EST bupivacaine 1.7 mL mL 01/19/2022 12:00 EST Respiratory Rate - Anes 0 br/min br/min 01/19/2022 11:55 EST SN - CAt - Case Attendee SN - CAt - Case Attendee SN - CAt - Role Performed Supervisor Concrete Pipe Plant 1 01/19/2022 11:55 EST Respiratory Rate - Anes 0 br/min br/min 01/19/2022 11:54 EST Lactated Ringers Injection Begin Bag 1,000 mL mL 01/19/2022 11:53 EST SN - CTm - Anesthesia Start Time Anesthesia Start fentaNYL 50 mcg mcg midazolam 1 mg mg 01/19/2022 11:43 EST SN - CAt - Case Attendee SN - CAt - Case Attendee SN - CAt - Role Performed Cell Saver Programming Equipment Operator 01/19/2022 11:39 EST SN - Proc - Actual Procedure DIRECT ANTERIOR REVISION LEFT TOTAL HIP ARTHROPLASTY 01/19/2022 11:36 EST SN - Assess - LOC Alert, Awake SN - Assess - Orientation Oriented X 3 SN - Assess - Post-op Skin Integrity Intact/Dry 01/19/2022 11:34 EST SN - XI - X-Ray Type C-Arm 01/19/2022 11:34 EST SN - CAt - Case Attendee SN - CAt - Case Attendee SN - CAt - Case Attendee SN - CAt - Case Attendee SN - CAt - Case Attendee SN - CAt - Case Attendee SN - CAt - Case Attendee SN - CAt - Case Attendee SN - CAt - Case Attendee SN - CAt - Case Attendee SN - CAt - Case Attendee SN - CAt - Case Attendee SN - CAt - Case Attendee SN - CAt - Case Attendee SN - CAt - Role Performed Primary Surgeon SN - CAt - Role Performed PROFESSOR OF LAW SN - CAt - Role Performed Switchman Supervisor 1 SN - CAt - Role Performed Scrub 1 SN - CAt - Role Performed Supervisor Concrete Pipe Plant 1 SN - CAt - Role Performed Woven Paper Hat Mender SN - CAt - Role Performed X-Ray Tech 01/19/2022 11:02 EST IV Present Present Forearm Right 01/19/2022 20 gauge Peripheral IV Activity: Insert new site Peripheral IV Dressing Condition: Clean, Dry, Intact Peripheral IV Dressing Activity: Applied, Transparent dressing Peripheral IV Line Status/Patency: Flushes easily Peripheral IV Site Condition: No complications Peripheral IV Equipment: Extension set, PRN Adaptor SN - Preop - CTm Pt in SDS Room 01/19/2022 10:14 SN - Preop - CTm Pt Ready for OR/Proced 01/19/2022 11:01 01/19/2022 11:01 EST citric acid-sodium citrate Not Done: Not Appropriate at this Time (Not Done) 01/19/2022 10:50 EST Primary Pain Intensity 0 celecoxib 400 mg mg famotidine 20 mg mg oxyCODONE 10 mg mg Lactated Ringers Injection 1,000 mL mL 01/19/2022 10:35 EST ABO/Rh Interp A POS Antibody Screen Gel Negative ABSC 01/19/2022 10:19 EST Designated Person #1 We May Share PHI Designated Person #1 We May Share PHI Designated Person #1 Relationship Daughter Designated Person #2 We May Share PHI Designated Person #2 We May Share PHI Designated Person #2 Relationship Daughter Privacy Restrictions Requested None Height 165.1 cm Admission Weight 61.4 kg Weight Method Stated [place] Body Weight 57.00 kg Body Mass Index 22.53 kg/m2 Body Mass Index 22.53 kg/m2 Temperature Temporal Artery 36.6 DegC Apical Heart Rate 92 bpm Respiratory Rate 8 br/min Systolic BP Left Arm 128 mmHg Diastolic BP Left Arm 72 mmHg Systolic Blood Pressure Non-Invasive 128 mmHg Diastolic Blood Pressure Non-Invasive 72 mmHg Primary Pain Intensity 0 Pain Scale Type 0-10 Pain scale Heart Rhythm Regular Oxygen Therapy Room air Oxygen Saturation 98 % Abdomen Description Non-distended Urinary Elimination Voiding, no difficulties Status No, per patient Skin Temperature Warm Skin Description [place], Dry Skin Integrity Intact Neurological Symptoms Patient denies Level of Consciousness Alert Strength All Extremities Strong Tone All Extremities Normal Sensation All Extremities Intact Affect/Behavior Appropriate Orientation Oriented x 4 Sensory Deficits None Sleep Apnea Snore No Sleep Apnea Tired No Sleep Apnea Obstruction No Sleep Apnea Pressure No Sleep Apnea BMI No Sleep Apnea Age Yes Sleep Apnea Neck No Sleep Apnea Gender No Sleep Apnea Score 1 High Risk for Sleep Apnea No Diagnosed With Sleep Apnea No Advanced Directives Yes Advance Directive Location Patient instructed to bring in copy Infectious Disease Symptoms Patient states no symptoms Infectious Disease Recent Exposure No Alcohol and Drug Use No Employee of Institutional Living No Health Care Employee No History of Exposure to TB No History of Positive Chest X-Ray for TB No History of Positive TB Skin Test No Homeless No Known Immunosuppression No Recent Immigrant No Resident of Institutional Living No Bloody Sputum No Fatigue No Fever No Loss of Appetite No Night Sweats No Persistent Cough > 3 Weeks No Weight Loss No Allergies Yes Lead Auditor On Yes Consent Form Signed Yes Patient Dressed In Hospital gown, No undergarments Pre-op Preparation Glasses removed CHG Preoperative Wash/Wipe Night before procedure, Day of procedure, Site specific wipe Preop Nasal Swab Povidone-Iodine CHG Skin Prep Completed for Eligible Surgery History & Physical Update On Chart Yes History & Physical On Chart Yes Obstructive Sleep Apnea Assess Completed Yes Safety Brochure Information Reviewed Unable to complete [place] Us Video Viewed No Barriers to Learning None evident Teaching Method Explanation, Printed materials Teaching Evaluation Verbalizes/Nonverbally indicates understanding Preferred Written Language [place] Preferred Spoken Language [place] Information Given by Unable to obtain Patient's Current Physicians DR. FAUSTIN Discharge To, Anticipated Home independently Activity Status ADL Awake SCD On/Re-applied right knee high Antiembolism Stocking On/Re-applied right thigh high NPO Status Maintained Standard Safety ID band on, Allergy Band on, Call device within reach, Bed in low position, Wheels locked, Upper/Half-Length side-rails up, Safety level maintained Prev Test Positive/Diagnosis w/COVID-19 No Current Quarantine/Isolated any Illness No Any Contact with Sick Animals/Birds No Traveled Anywhere in Last 30 Days No Allergy Band on and Verified Yes Patient ID Band on and Verified Yes Implants Verified Yes Pacemaker/AICD Verified Yes Blood Consent Signed Yes Last Fluid Intake 01/19/2022 2:00 Last Food Intake 01/18/2022 21:00 Patient Cleared for Surgery By RUTHANN FAUSTIN MD Lost Weight Unintentionally Recently No Eat Poorly Due to Decreased Appetite No Total MST Score 0 No Personal Devices, Patient Valuables Glasses Anesthesia/Transfusions Prior anesthesia Admission Note-Nursing Same Day Patient History . Assessment and Plan [place] [employer] Anesthesiologists (ASA) physical status classification: Class III. Anesthetic Preoperative Plan Anesthetic technique: Spinal. Informed consent: signed by patient. Digitally Signed by CLAUDINE MCGINNIS on 01/19/2022 12:55 PM [facility] 08-20-2021 History of Presen t illness Narrative Chief Complaint Patient presents with: Established Patient HPI: Natalia Orozco is a 65 year old female who presents here today for follow up breast cancer. Per Dr. Rodriguez's previous note: H/o abnormality in the right breast on a screening mammogram. Biopsy showed invasive ductal carcinoma, nuclear grade 3. ER/ME (> 95% strong/3%, weak) HER2 amplified (8.6:1) Underwent partial mastectomy and SLN biopsy 06/12/2014. Final pathology: 1. [place] lymph node #1, right axilla, biopsy (A) - One lymph node, negative for carcinoma (0/1). 2. [place] lymph node #1, right axilla, biopsy (B) - One lymph node, negative for carcinoma (0/1). 3. [place] lymph node #1, right axilla, biopsy (C) - One lymph node, negative for carcinoma (0/1). 4. Right breast, needle-localized partial mastectomy (D) - Invasive moderately-differentiated ductal carcinoma, see synoptic report. - Invasive carcinoma is present less than 1 mm from anterior and posterior margins, which represent the closest margins of excision. - Changes consistent with previous biopsy site. 5. Right breast, inferior margin, excision (E) - Breast parenchyma, negative for malignancy. 6. Right breast, superior margin, excision (F) - Adipose tissue, negative for malignancy 7. Right breast, medial margin, excision (G) - Breast parenchyma with thermal cautery artifact, negative for malignancy. 8. Right breast, lateral margin, excision (H) - Breast parenchyma, negative for malignancy. 9. Right breast, deep margin, excision (I) - Breast parenchyma, negative for malignancy. 10. Right breast, anterior margin, excision (J) - Breast parenchyma, negative for malignancy. TP/cc 06/14/2014 COMMENT SYNOPTIC REPORT OF [facility] PATHOLOGIC FINDINGS RIGHT BREAST PARTIAL MASTECTOMY: Part: D Specimen Laterality: Right Procedure: Partial mastectomy Wire Localization: Wire present Lymph Node Sampling: [place] lymph node(s) Tumor size: Size of largest invasive carcinoma: Greatest dimension of largest focus of invasion >1 mm: 10 mm Tumor Focality: Single focus of invasive carcinoma Macroscopic-Microscopic Extension of tumor: Skin: Not applicable Nipple: Not applicable Skeletal muscle: No skeletal muscle present Invasive Carcinoma Margins: Margins uninvolved by invasive carcinoma Distance from closest margin: 0.5 mm Closest Uninvolved Margin:Posterior Distance of invasive carcinoma to anterior margin: 0.6 mm DCIS Margins: DCIS not present in specimen Histologic Type of Invasive Carcinoma: Invasive ductal carcinoma (no special type or not otherwise specified) Histologic Grade: Glandular (Acinar) / Tubular Differentiation: Score 3 Nuclear Pleomorphism: Score 2 Mitotic Rate: Score 1 Overall Grade: Grade II Lymph-Vascular Invasion: Not identified Ductal Carcinoma In Situ: No DCIS is present Lymph Nodes: Total number of nodes examined (sentinel and nonsentinel): 3 Number of sentinel lymph nodes examined: 3 Number of lymph nodes with macrometastases (>2 mm): 0 Number of lymph nodes with micrometastases (>0.2 mm to 2 mm and/or >200 cells): 0 Number of lymph nodes with isolated tumor cells (<= 0.2 mm and <= 200 cells): 0 TNM Descriptor(s): Not applicable Primary Tumor (Invasive Carcinoma) (pT): pT1b Regional Lymph Nodes (pN): Modifier: (sn) Category (pN): pN0 Distant metastasis: Not Applicable Estrogen & progestrone receptors: Previously performed (HER2) ERBB2 STATUS: Previously performed Comment: Please refer to Parts E through J for additional margin status. Previous therapy: 1) AC 07/10 through 08/20/2014. 2) Taxol/Herceptin 09/03 through 11/19/2014. 3) Completed radiation 01/08/2015. Completed one years worth of Herceptin 08/2015. Current therapy: Arimidex-Began January 2015. No new concerns today. Pts. in April. Appetite: Good. Energy level: Good. Denies fevers or recent illness since +covid 2 months ago-recovered at home. Resp:denies cough or sob Cardiac:denies chest pain/palpitations GI:denies abd pain, n/v, moving bowels regularly :denies dysuria/hematuria Extrem:hand/foot pain/stiffness in the mornings, denies pain elsewhere Endo:hot flashes daily Same. 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 Past medical history, appointments, medications, allergies reviewed. No changes. EXAM: BP 113/65 Pulse 84 Temp 36.7 C (98.1 F) (Temporal) Ht 164.5 cm (5' 4.75 ) Wt 63 kg (139 lb) BMI 23.31 kg/m APPEARANCE Well appearing, alert, in no acute distress, well-hydrated, well nourished. HEART RRR with normal S1 and S2, no murmurs LUNG clear to auscultation BREAST FEMALE no mass/nodule b/l, R scar to upper/radiation changes LYMPH NODES No cervical lymphadenopathy, No supraclavicular lymphadenopathy and No axillary lymphadenopathy. ABDOMEN bowel sounds normoactive, soft, non-tender, non-distended, without organomegaly or palpable masses EXTREMITIES No edema NEURO Awake, alert and oriented x 3, Normal gait and No involuntary motions. SKIN Skin color, texture, turgor normal, no suspicious rashes or lesions RADIOLOGY: Mammogram 08/14/21: IMPRESSION: BENIGN FINDING There is no mammographic evidence of malignancy. A 1 year screening mammogram is recommended. ASSESSMENT/PLAN: 1. Malignant neoplasm of right breast in female, estrogen receptor positive, unspecified site of breast (HCC) - ICD9: 174.9, V86.0, ICD10: C50.911, Z17.0 pT1b pN0 MX ER/ME positive HER2 positive breast cancer. - No concerning findings on exam. - Arimidex-tolerating fair d/t hand pain/hot flashes. - Continue arimidex. Pt. will completed 7 years of therapy 2021. - Continue neurontin. - Mammogram due July 2022. - Follow up after mammogram. - Pt. aware to call office with any questions/concerns. The patient indicates understanding of these issues and agrees with the plan. All documentation from previous visit of 01/30/21-Dr. Rodriguez/myself was copied and pasted, documentation has been reviewed and edited as necessary for today's visit. Yeni Brown APRN.ISAMAR documented in this encounter [facility] 08-14-2021 Miscellaneous Notes August 14, 2021 PID: [id number] Natalia Orozco [address] [place] [address] Dear Ms. Orozco, We are pleased to inform you that the results of your recent breast imaging exam on 08/14/2021 are normal. Early detection of cancer is very important. We also understand recommendations regarding breast cancer screening are controversial. Please discuss with your primary care provider which strategy is best for you and whether a mammogram is right for you. Your imaging studies and report will be kept on file at [facility] as part of your permanent medical record and are available for your continuing care. Thank you for allowing us to help in meeting your health care needs. Sincerely, Dr. Menjivar Interpreting Radiologist [facility] (Normal over 40) documented in this encounter [facility] 08-14-2021 History of Presen t illness Narrative Radiology Service Progress Note PATIENT NAME: Natalia Orozco DATE OF SERVICE: August 14, 2021 TIME: 8:33 AM PATIENT IDENTITY VERIFICATION COMPLETED USING TWO (2) IDENTIFIERS: Name and Date of confirmed by patient verbally. FALL SCREENING: Has the patient had 2 falls in the last year or 1 fall with injury or currently using an Ambulatory Assistive Device (Walker, Cane, Wheelchair, Crutches, etc.)? No PATIENT GENDER DATA: Female. status: : No status: NO. PATIENT RELEVANT IMPLANT DATA REVIEWED: Not Applicable RADIOLOGY DEPARTMENT: Mammography PERIPHERAL IV DATA: Not applicable SIGNED BY: RT Jj(R) August 14, 2021 8:33 AM documented in this encounter [facility] 01-20-2020 Anesthesiology Consult note CLAUDINE MCGINNIS APRN-PROFESSOR OF LAW: PERFORM, SIGN, VERIFY Event Display: Anesthesiology Consultation Authored Date: Patient: NATALIA OROZCO Age: 66 years Sex: Female : 1955 Associated Diagnoses: None Author: CLAUDINE MCGINNIS PSYCHOLOGICAL EXAMINER-PROFESSOR OF LAW Assessment Postanesthesia assessment Vitals: Vital signs from flowsheet : Vital Signs 01/19/2022 13:55 EST Heart Rate Monitored 81 bpm bpm Respiratory Rate - Anes 14 br/min br/min Systolic Blood Pressure Non-Invasive 102 mmHg mmHg Diastolic Blood Pressure Non-Invasive 50 mmHg mmHg 01/19/2022 13:50 EST Heart Rate Monitored 80 bpm bpm Respiratory Rate - Anes 10 br/min br/min Systolic Blood Pressure Non-Invasive 107 mmHg mmHg Diastolic Blood Pressure Non-Invasive 52 mmHg mmHg 01/19/2022 13:49 EST Systolic Blood Pressure Non-Invasive 109 mmHg mmHg Diastolic Blood Pressure Non-Invasive 52 mmHg mmHg 01/19/2022 13:45 EST Heart Rate Monitored 81 bpm bpm Respiratory Rate - Anes 13 br/min br/min Systolic Blood Pressure Non-Invasive 81 mmHg mmHg Diastolic Blood Pressure Non-Invasive 37 mmHg mmHg 01/19/2022 13:40 EST Heart Rate Monitored 83 bpm bpm Respiratory Rate - Anes 12 br/min br/min Systolic Blood Pressure Non-Invasive 95 mmHg mmHg Diastolic Blood Pressure Non-Invasive 45 mmHg mmHg 01/19/2022 13:35 EST Heart Rate Monitored 81 bpm bpm Respiratory Rate - Anes 11 br/min br/min Systolic Blood Pressure Non-Invasive 129 mmHg mmHg Diastolic Blood Pressure Non-Invasive 56 mmHg mmHg 01/19/2022 13:30 EST Temperature (Route Not Specified) 36 DegC DegC Heart Rate Monitored 68 bpm bpm Respiratory Rate - Anes 12 br/min br/min Systolic Blood Pressure Non-Invasive 120 mmHg mmHg Diastolic Blood Pressure Non-Invasive 56 mmHg mmHg 01/19/2022 13:25 EST Heart Rate Monitored 64 bpm bpm Respiratory Rate - Anes 12 br/min br/min Systolic Blood Pressure Non-Invasive 129 mmHg mmHg Diastolic Blood Pressure Non-Invasive 57 mmHg mmHg 01/19/2022 13:20 EST Heart Rate Monitored 63 bpm bpm Respiratory Rate - Anes 13 br/min br/min Systolic Blood Pressure Non-Invasive 119 mmHg mmHg Diastolic Blood Pressure Non-Invasive 62 mmHg mmHg 01/19/2022 13:15 EST Temperature (Route Not Specified) 36 DegC DegC Heart Rate Monitored 70 bpm bpm Respiratory Rate - Anes 11 br/min br/min Systolic Blood Pressure Non-Invasive 97 mmHg mmHg Diastolic Blood Pressure Non-Invasive 48 mmHg mmHg 01/19/2022 13:10 EST Heart Rate Monitored 73 bpm bpm Respiratory Rate - Anes 13 br/min br/min Systolic Blood Pressure Non-Invasive 103 mmHg mmHg Diastolic Blood Pressure Non-Invasive 49 mmHg mmHg 01/19/2022 13:05 EST Heart Rate Monitored 75 bpm bpm Respiratory Rate - Anes 11 br/min br/min Systolic Blood Pressure Non-Invasive 93 mmHg mmHg Diastolic Blood Pressure Non-Invasive 48 mmHg mmHg 01/19/2022 13:00 EST Temperature (Route Not Specified) 36 DegC DegC Heart Rate Monitored 73 bpm bpm Respiratory Rate - Anes 12 br/min br/min Systolic Blood Pressure Non-Invasive 100 mmHg mmHg Diastolic Blood Pressure Non-Invasive 54 mmHg mmHg 01/19/2022 12:57 EST Systolic Blood Pressure Non-Invasive 101 mmHg mmHg Diastolic Blood Pressure Non-Invasive 52 mmHg mmHg 01/19/2022 12:55 EST Heart Rate Monitored 80 bpm bpm Respiratory Rate - Anes 13 br/min br/min Systolic Blood Pressure Non-Invasive 82 mmHg mmHg Diastolic Blood Pressure Non-Invasive 40 mmHg mmHg 01/19/2022 12:50 EST Heart Rate Monitored 78 bpm bpm Respiratory Rate - Anes 11 br/min br/min Systolic Blood Pressure Non-Invasive 90 mmHg mmHg Diastolic Blood Pressure Non-Invasive 44 mmHg mmHg 01/19/2022 12:45 EST Temperature (Route Not Specified) 36 DegC DegC Heart Rate Monitored 72 bpm bpm Respiratory Rate - Anes 8 br/min br/min Systolic Blood Pressure Non-Invasive 85 mmHg mmHg Diastolic Blood Pressure Non-Invasive 41 mmHg mmHg 01/19/2022 12:40 EST Heart Rate Monitored 72 bpm bpm Respiratory Rate - Anes 12 br/min br/min Systolic Blood Pressure Non-Invasive 94 mmHg mmHg Diastolic Blood Pressure Non-Invasive 50 mmHg mmHg 01/19/2022 12:35 EST Heart Rate Monitored 73 bpm bpm Respiratory Rate - Anes 12 br/min br/min Systolic Blood Pressure Non-Invasive 84 mmHg mmHg Diastolic Blood Pressure Non-Invasive 40 mmHg mmHg 01/19/2022 12:30 EST Temperature (Route Not Specified) 36 DegC DegC Heart Rate Monitored 75 bpm bpm Respiratory Rate - Anes 10 br/min br/min Systolic Blood Pressure Non-Invasive 99 mmHg mmHg Diastolic Blood Pressure Non-Invasive 50 mmHg mmHg 01/19/2022 12:25 EST Heart Rate Monitored 71 bpm bpm Respiratory Rate - Anes 12 br/min br/min Systolic Blood Pressure Non-Invasive 95 mmHg mmHg Diastolic Blood Pressure Non-Invasive 45 mmHg mmHg 01/19/2022 12:20 EST Heart Rate Monitored 71 bpm bpm Respiratory Rate - Anes 10 br/min br/min Systolic Blood Pressure Non-Invasive 84 mmHg mmHg Diastolic Blood Pressure Non-Invasive 44 mmHg mmHg 01/19/2022 12:15 EST Temperature (Route Not Specified) 36 DegC DegC Heart Rate Monitored 62 bpm bpm Respiratory Rate - Anes 12 br/min br/min Systolic Blood Pressure Non-Invasive 99 mmHg mmHg Diastolic Blood Pressure Non-Invasive 52 mmHg mmHg 01/19/2022 12:10 EST Heart Rate Monitored 69 bpm bpm Respiratory Rate - Anes 22 br/min br/min Systolic Blood Pressure Non-Invasive 95 mmHg mmHg Diastolic Blood Pressure Non-Invasive 44 mmHg mmHg 01/19/2022 12:06 EST Systolic Blood Pressure Non-Invasive 103 mmHg mmHg Diastolic Blood Pressure Non-Invasive 60 mmHg mmHg 01/19/2022 12:05 EST Heart Rate Monitored 76 bpm bpm Respiratory Rate - Anes 7 br/min br/min 01/19/2022 12:00 EST Respiratory Rate - Anes 0 br/min br/min 01/19/2022 11:55 EST Respiratory Rate - Anes 0 br/min br/min 01/19/2022 10:19 EST Temperature Temporal Artery 36.6 DegC Apical Heart Rate 92 bpm Respiratory Rate 8 br/min <LLOW Systolic BP Left Arm 128 mmHg Diastolic BP Left Arm 72 mmHg Systolic Blood Pressure Non-Invasive 128 mmHg Diastolic Blood Pressure Non-Invasive 72 mmHg , Measurements from flowsheet . Mental status: alert & oriented x 4. Respiratory function: respirations are non-labored. Respiratory support: none. CV function: Normal rate. Cardiovascular support: none. Pain. Nausea status: see nursing documentation of medications. Postoperative hydration status: within normal limits. Digitally Signed by CLAUDINE MCGINNIS on 01/19/2022 02:05 PM CLAUDINE MCGINNIS: PERFORM, SIGN, VERIFY Event Display: Anesthesiology Consultation Authored Date: [id number] Patient: NATALIA OROZCO Age: 66 years Sex: Female : 1955 Associated Diagnoses: None Author: CLAUDINE MCGINNIS APRN-PROFESSOR OF LAW Preoperative Information Time of last food or liquid consumption: 01/19/2022 00:00:00 Anesthesia history Patient's history: negative. Family's history: negative. Health Status Allergies: Allergic Reactions (Selected) Severity Not Documented Reglan- Tardive dyskinesia., Allergies (1) ActiveReaction ReglanTardive dyskinesia Current medications: (Selected) Inpatient Medications Ordered Betadine 10% topical solution: 17.5 mL, mL/hr, Topical (INT), PREOP pharm Decadron: 10 mg, 1 mL, IV Push, AsDirected Demerol (PACU): 25 mg, 1 mL, IV Push, q5min, PRN: Pain, breakthrough Dilaudid: 0.25 mg, 0.25 mL, IV Push, q5min, PRN: Pain, scale 4-10 LR 1,000 mL: 20 mL/hr, Intravenous LR 1000 mL: 20 mL/hr, Intravenous, Stop: 01/20/22 17:59:00 EST Naropin 100 mg + Toradol 15 mg + EPINEPHrine 1 mg/mL injectable solution 0.3 mg + morphine 2.5 mg...: 100 mg, 20 mL, mL/hr, Other, PREOP pharm Naropin 100 mg + Toradol 15 mg + EPINEPHrine 1 mg/mL injectable solution 0.3 mg + morphine 2.5 mg...: 100 mg, 20 mL, mL/hr, Other, PREOP pharm Zofran ( PACU ): 4 mg, 2 mL, IV Push, AsDirected, PRN: Nausea/Vomiting albuterol 2.5 mg/3 mL (0.083%) inhalation solution: 2.5 mg, 3 mL, Inhalation, Once, PRN: Other (see order comments) tranexamic acid 1 g / 100 mL 0.7% NaCl PMX: 1 gram(s), 10 mL, 330 mL/hr, IV Piggyback, AsDirected tranexamic acid 1 g / 100 mL 0.7% NaCl PMX: 1 gram(s), 10 mL, 330 mL/hr, IV Piggyback, AsDirected Documented Medications Documented Benadryl: 25 mg, Oral, qHS, 0 Refill(s) Multivitamin: 1 tab(s), Oral, Daily, 0 Refill(s) Vitamin D3: 2000, Oral, qDay, 0 Refill(s) anastrozole: 1 mg, Oral, qDay, 0 Refill(s) atorvastatin: 10 mg, Oral, qDay, 0 Refill(s) calcium (as calcium citrate) 250 mg oral tablet: 2 TAB, Oral, BID, 0 Refill(s) diclofenac: 75 mg, Oral, BID, 0 Refill(s) docusate: 100 mg, Oral, BID, 0 Refill(s) folic acid: 800 mg, Oral, qDay, 0 Refill(s) gabapentin 300 mg oral capsule: 300 mg, 1 cap(s), Oral, qHS, 0 Refill(s) gabapentin: 100 mg, Oral, BID, 0 Refill(s) levothyroxine: 88 mcg, Oral, qDay, 0 Refill(s) metFORMIN 500 mg oral tablet (IR): 500 mg, 1 tab(s), Oral, BID, 0 Refill(s), Medications (12) Active Scheduled: (6) dexamethasone 10 mg/mL (1mL) SDV 10 mg 1 mL, IV Push, AsDirected povidone iodine topical 17.5 mL, Topical (INT), PREOP pharm ropivacaine 100 mg + ketorolac 15 mg + epinephrine 0.3 mg + morphine 2.5 mg 100 mg 20 mL, Other, PREOP pharm ropivacaine 100 mg + ketorolac 15 mg + epinephrine 0.3 mg + morphine 2.5 mg 100 mg 20 mL, Other, PREOP pharm tranexamic acid 1 gram(s) 10 mL, IV Piggyback, AsDirected tranexamic acid 1 gram(s) 10 mL, IV Piggyback, AsDirected Continuous: (2) Lactated Ringers 1,000 mL 1,000 mL, Intravenous, 20 mL/hr Lactated Ringers 1000 mL 1,000 mL, Intravenous, 20 mL/hr PRN: (4) albuterol 0.083% Soln UD (2.5mg/3 mL) 2.5 mg 3 mL, Inhalation, Once hydromorphone 1 mg/mL (1mL) INJ 0.25 mg 0.25 mL, IV Push, q5min meperidine 25 mg/mL 1 mL 25 mg 1 mL, IV Push, q5min ondansetron 2 mg/ 1 mL 2 mL INJ 4 mg 2 mL, IV Push, AsDirected Problem list: Active Problems (6) Breast cancer Diabetes High cholesterol Hypothyroid Neuropathy Osteoarthritis Histories Past Medical History: No active or resolved past medical history items have been selected or recorded. Family History: Diabetes mellitus type 2 Sister Heart attack Mother Aortic valve disorder Father Procedure history: Tubal ligation ([id number]). Hip arthroplasty ([id number]). Comments: 01/07/2022 11:12 Brianda Moreno RN RIGHT Oophorectomy ([id number]). Comments: 01/07/2022 11:11 Brianda Moreno RN RIGHT Hip arthroplasty ([id number]). Comments: 01/07/2022 11:12 Brianda Moreno RN LEFT Lumpectomy ([id number]). Social History Social & Psychosocial Habits Alcohol 01/07/2022 Use: Never Substance Abuse 01/07/2022 Use: Never Tobacco 01/07/2022 Tobacco Use: Never (less than 100 in l . Physical Examination Vital Signs 01/19/2022 12:45 EST Heart Rate Monitored 72 bpm bpm Respiratory Rate - Anes 8 br/min br/min 01/19/2022 12:40 EST Heart Rate Monitored 72 bpm bpm Respiratory Rate - Anes 12 br/min br/min Systolic Blood Pressure Non-Invasive 94 mmHg mmHg Diastolic Blood Pressure Non-Invasive 50 mmHg mmHg 01/19/2022 12:35 EST Heart Rate Monitored 73 bpm bpm Respiratory Rate - Anes 12 br/min br/min Systolic Blood Pressure Non-Invasive 84 mmHg mmHg Diastolic Blood Pressure Non-Invasive 40 mmHg mmHg 01/19/2022 12:30 EST Temperature (Route Not Specified) 36 DegC DegC Heart Rate Monitored 75 bpm bpm Respiratory Rate - Anes 10 br/min br/min Systolic Blood Pressure Non-Invasive 99 mmHg mmHg Diastolic Blood Pressure Non-Invasive 50 mmHg mmHg 01/19/2022 12:25 EST Heart Rate Monitored 71 bpm bpm Respiratory Rate - Anes 12 br/min br/min Systolic Blood Pressure Non-Invasive 95 mmHg mmHg Diastolic Blood Pressure Non-Invasive 45 mmHg mmHg 01/19/2022 12:20 EST Heart Rate Monitored 71 bpm bpm Respiratory Rate - Anes 10 br/min br/min Systolic Blood Pressure Non-Invasive 84 mmHg mmHg Diastolic Blood Pressure Non-Invasive 44 mmHg mmHg 01/19/2022 12:15 EST Temperature (Route Not Specified) 36 DegC DegC Heart Rate Monitored 62 bpm bpm Respiratory Rate - Anes 12 br/min br/min Systolic Blood Pressure Non-Invasive 99 mmHg mmHg Diastolic Blood Pressure Non-Invasive 52 mmHg mmHg 01/19/2022 12:10 EST Heart Rate Monitored 69 bpm bpm Respiratory Rate - Anes 22 br/min br/min Systolic Blood Pressure Non-Invasive 95 mmHg mmHg Diastolic Blood Pressure Non-Invasive 44 mmHg mmHg 01/19/2022 12:06 EST Systolic Blood Pressure Non-Invasive 103 mmHg mmHg Diastolic Blood Pressure Non-Invasive 60 mmHg mmHg 01/19/2022 12:05 EST Heart Rate Monitored 76 bpm bpm Respiratory Rate - Anes 7 br/min br/min 01/19/2022 12:00 EST Respiratory Rate - Anes 0 br/min br/min 01/19/2022 11:55 EST Respiratory Rate - Anes 0 br/min br/min 01/19/2022 10:19 EST Temperature Temporal Artery 36.6 DegC Apical Heart Rate 92 bpm Respiratory Rate 8 br/min <LLOW Systolic BP Left Arm 128 mmHg Diastolic BP Left Arm 72 mmHg Systolic Blood Pressure Non-Invasive 128 mmHg Diastolic Blood Pressure Non-Invasive 72 mmHg Vital Signs(last 24 hrs) Last Charted Heart Rate [id number] bpm (JAN 19 12:45) Resp Rate C 8br/min (JAN 19 10:19) SBP94 mmHg (JAN 19 12:40) DBP50 mmHg (JAN 19 12:40) BMI22.53 (JAN 19 10:19) Measurements from flowsheet : Measurements 01/19/2022 10:19 EST Height 165.1 cm Admission Weight 61.4 kg Weight Method Stated [place] Body Weight 57.00 kg Body Mass Index 22.53 kg/m2 Body Mass Index 22.53 kg/m2 Pain assessment: Pain Assessment 01/19/2022 10:50 EST Primary Pain Intensity 0 01/19/2022 10:19 EST Primary Pain Intensity 0 Pain Scale Type 0-10 Pain scale . General: Alert and oriented. Airway: Normal temporomandibular joint mobility, Normal mouth, Normal neck range of motion. Mallampati classification: I (soft palate, fauces, uvula, pillars visible). Dentition Evaluation: Denies loose/chipped teeth. Respiratory: Respirations are non-labored. Cardiovascular: Normal rate. Neurologic: Alert, Oriented. Review / Management Results review: No qualifying data available , Lab results 01/19/2022 12:45 EST Heart Rate Monitored 72 bpm bpm Respiratory Rate - Anes 8 br/min br/min Oxygen Saturation 100 % % 01/19/2022 12:40 EST Heart Rate Monitored 72 bpm bpm Respiratory Rate - Anes 12 br/min br/min Systolic Blood Pressure Non-Invasive 94 mmHg mmHg Diastolic Blood Pressure Non-Invasive 50 mmHg mmHg Oxygen Saturation 100 % % 01/19/2022 12:39 EST SN - Cul - Culture Type Tissue in Formalin SN - Cul - Kind Specimen 01/19/2022 12:35 EST Heart Rate Monitored 73 bpm bpm Respiratory Rate - Anes 12 br/min br/min Systolic Blood Pressure Non-Invasive 84 mmHg mmHg Diastolic Blood Pressure Non-Invasive 40 mmHg mmHg Oxygen Saturation 100 % % phenylephrine 100 mcg mcg 01/19/2022 12:30 EST SN - CTm - Surgery Start 01/19/2022 12:24 01/19/2022 12:30 EST Temperature (Route Not Specified) 36 DegC DegC Heart Rate Monitored 75 bpm bpm Respiratory Rate - Anes 10 br/min br/min Systolic Blood Pressure Non-Invasive 99 mmHg mmHg Diastolic Blood Pressure Non-Invasive 50 mmHg mmHg Oxygen Saturation 100 % % phenylephrine 100 mcg mcg 01/19/2022 12:27 EST SN - CAt - Case Attendee SN - CAt - Case Attendee SN - CAt - Role Performed Woven Paper Hat Mender 01/19/2022 12:25 EST Heart Rate Monitored 71 bpm bpm Respiratory Rate - Anes 12 br/min br/min Systolic Blood Pressure Non-Invasive 95 mmHg mmHg Diastolic Blood Pressure Non-Invasive 45 mmHg mmHg Oxygen Saturation 100 % % phenylephrine 100 mcg mcg 01/19/2022 12:24 EST SN - CTm - Surgery Start Surgery Start 01/19/2022 12:20 EST Heart Rate Monitored 71 bpm bpm Respiratory Rate - Anes 10 br/min br/min Systolic Blood Pressure Non-Invasive 84 mmHg mmHg Diastolic Blood Pressure Non-Invasive 44 mmHg mmHg Oxygen Saturation 100 % % phenylephrine 100 mcg mcg 01/19/2022 12:19 EST SN - CAt - Case Attendee SN - CAt - Case Attendee SN - CAt - Role Performed Cell Saver Programming Equipment Operator 01/19/2022 12:15 EST Temperature (Route Not Specified) 36 DegC DegC Heart Rate Monitored 62 bpm bpm Respiratory Rate - Anes 12 br/min br/min Systolic Blood Pressure Non-Invasive 99 mmHg mmHg Diastolic Blood Pressure Non-Invasive 52 mmHg mmHg Oxygen Saturation 100 % % 01/19/2022 12:14 EST acetaminophen 1,000 mg mg dexamethasone 10 mg mg ondansetron 4 mg mg 01/19/2022 12:10 EST Heart Rate Monitored 69 bpm bpm Respiratory Rate - Anes 22 br/min br/min Systolic Blood Pressure Non-Invasive 95 mmHg mmHg Diastolic Blood Pressure Non-Invasive 44 mmHg mmHg Oxygen Saturation 100 % % Lactated Ringers Injection 1,000 mL mL 01/19/2022 12:08 EST SN - Proc - Anesthesia Type Spinal, MAC 01/19/2022 12:08 EST SN - Irl - Irrigant Normal Saline SN - Irl - Irrigant Normal Saline SN - Irl - Irrigant Sterile Water SN - IrI - Volume In 9,000 mL SN - IrI - Volume In 500 mL SN - IrI - Volume In 450 mL SN - Irl - Additive POVIDONE IODINE SN - Irl - Additive IRRIGATION CHG 0.05% IRRISEPT [id number] SN - IrI - Volume Out 9,000 mL SN - IrI - Volume Out 500 mL SN - IrI - Volume Out 450 mL 01/19/2022 12:07 EST glycopyrrolate 0.2 mg mg 01/19/2022 12:06 EST SN - SP - Prep Agents Chloraprep SN - SP - HR - Method N/A 01/19/2022 12:06 EST Systolic Blood Pressure Non-Invasive 103 mmHg mmHg Diastolic Blood Pressure Non-Invasive 60 mmHg mmHg 01/19/2022 12:05 EST SN - PP - Body Position Supine Standard Intra-op 01/19/2022 12:05 EST Heart Rate Monitored 76 bpm bpm Respiratory Rate - Anes 7 br/min br/min Oxygen Saturation 97.8 % % cefazolin 2 gram(s) gram(s) Sodium Chloride 0.9% 100 mL mL 01/19/2022 12:04 EST SN - GCD - Post-operative Diagnosis RECURRENT DISLOCATION, LEFT HIP SN - GCD - Case Level Level 5 01/19/2022 12:03 EST SN - CAt - Case Attendee SN - CAt - Case Attendee SN - CAt - Role Performed Physician Campus Security Officer 01/19/2022 12:03 EST bupivacaine 1.7 mL mL 01/19/2022 12:00 EST Respiratory Rate - Anes 0 br/min br/min 01/19/2022 11:55 EST SN - CAt - Case Attendee SN - CAt - Case Attendee SN - CAt - Role Performed Supervisor Concrete Pipe Plant 1 01/19/2022 11:55 EST Respiratory Rate - Anes 0 br/min br/min 01/19/2022 11:54 EST Lactated Ringers Injection Begin Bag 1,000 mL mL 01/19/2022 11:53 EST SN - CTm - Anesthesia Start Time Anesthesia Start fentaNYL 50 mcg mcg midazolam 1 mg mg 01/19/2022 11:43 EST SN - CAt - Case Attendee SN - CAt - Case Attendee SN - CAt - Role Performed Cell Saver Programming Equipment Operator 01/19/2022 11:39 EST SN - Proc - Actual Procedure DIRECT ANTERIOR REVISION LEFT TOTAL HIP ARTHROPLASTY 01/19/2022 11:36 EST SN - Assess - LOC Alert, Awake SN - Assess - Orientation Oriented X 3 SN - Assess - Post-op Skin Integrity Intact/Dry 01/19/2022 11:34 EST SN - XI - X-Ray Type C-Arm 01/19/2022 11:34 EST SN - CAt - Case Attendee SN - CAt - Case Attendee SN - CAt - Case Attendee SN - CAt - Case Attendee SN - CAt - Case Attendee SN - CAt - Case Attendee SN - CAt - Case Attendee SN - CAt - Case Attendee SN - CAt - Case Attendee SN - CAt - Case Attendee SN - CAt - Case Attendee SN - CAt - Case Attendee SN - CAt - Case Attendee SN - CAt - Case Attendee SN - CAt - Role Performed Primary Surgeon SN - CAt - Role Performed PROFESSOR OF LAW SN - CAt - Role Performed Switchman Supervisor 1 SN - CAt - Role Performed Scrub 1 SN - CAt - Role Performed Supervisor Concrete Pipe Plant 1 SN - CAt - Role Performed Woven Paper Hat Mender SN - CAt - Role Performed X-Ray Tech 01/19/2022 11:02 EST IV Present Present Forearm Right 01/19/2022 20 gauge Peripheral IV Activity: Insert new site Peripheral IV Dressing Condition: Clean, Dry, Intact Peripheral IV Dressing Activity: Applied, Transparent dressing Peripheral IV Line Status/Patency: Flushes easily Peripheral IV Site Condition: No complications Peripheral IV Equipment: Extension set, PRN Adaptor SN - Preop - CTm Pt in SDS Room 01/19/2022 10:14 SN - Preop - CTm Pt Ready for OR/Proced 01/19/2022 11:01 01/19/2022 11:01 EST citric acid-sodium citrate Not Done: Not Appropriate at this Time (Not Done) 01/19/2022 10:50 EST Primary Pain Intensity 0 celecoxib 400 mg mg famotidine 20 mg mg oxyCODONE 10 mg mg Lactated Ringers Injection 1,000 mL mL 01/19/2022 10:35 EST ABO/Rh Interp A POS Antibody Screen Gel Negative ABSC 01/19/2022 10:19 EST Designated Person #1 We May Share PHI Designated Person #1 We May Share PHI Designated Person #1 Relationship Daughter Designated Person #2 We May Share PHI Designated Person #2 We May Share PHI Designated Person #2 Relationship Daughter Privacy Restrictions Requested None Height 165.1 cm Admission Weight 61.4 kg Weight Method Stated [place] Body Weight 57.00 kg Body Mass Index 22.53 kg/m2 Body Mass Index 22.53 kg/m2 Temperature Temporal Artery 36.6 DegC Apical Heart Rate 92 bpm Respiratory Rate 8 br/min <LLOW Systolic BP Left Arm 128 mmHg Diastolic BP Left Arm 72 mmHg Systolic Blood Pressure Non-Invasive 128 mmHg Diastolic Blood Pressure Non-Invasive 72 mmHg Primary Pain Intensity 0 Pain Scale Type 0-10 Pain scale Heart Rhythm Regular Oxygen Therapy Room air Oxygen Saturation 98 % Abdomen Description Non-distended Urinary Elimination Voiding, no difficulties Status No, per patient Skin Temperature Warm Skin Description [place], Dry Skin Integrity Intact Neurological Symptoms Patient denies Level of Consciousness Alert Strength All Extremities Strong Tone All Extremities Normal Sensation All Extremities Intact Affect/Behavior Appropriate Orientation Oriented x 4 Sensory Deficits None Sleep Apnea Snore No Sleep Apnea Tired No Sleep Apnea Obstruction No Sleep Apnea Pressure No Sleep Apnea BMI No Sleep Apnea Age Yes Sleep Apnea Neck No Sleep Apnea Gender No Sleep Apnea Score 1 High Risk for Sleep Apnea No Diagnosed With Sleep Apnea No Advanced Directives Yes Advance Directive Location Patient instructed to bring in copy Infectious Disease Symptoms Patient states no symptoms Infectious Disease Recent Exposure No Alcohol and Drug Use No Employee of Institutional Living No Health Care Employee No History of Exposure to TB No History of Positive Chest X-Ray for TB No History of Positive TB Skin Test No Homeless No Known Immunosuppression No Recent Immigrant No Resident of Institutional Living No Bloody Sputum No Fatigue No Fever No Loss of Appetite No Night Sweats No Persistent Cough > 3 Weeks No Weight Loss No Allergies Yes Lead Auditor On Yes Consent Form Signed Yes Patient Dressed In Hospital gown, No undergarments Pre-op Preparation Glasses removed CHG Preoperative Wash/Wipe Night before procedure, Day of procedure, Site specific wipe Preop Nasal Swab Povidone-Iodine CHG Skin Prep Completed for Eligible Surgery History & Physical Update On Chart Yes History & Physical On Chart Yes Obstructive Sleep Apnea Assess Completed Yes Safety Brochure Information Reviewed Unable to complete [facility] Video Viewed No Barriers to Learning None evident Teaching Method Explanation, Printed materials Teaching Evaluation Verbalizes/Nonverbally indicates understanding Preferred Written Language [place] Preferred Spoken Language [place] Information Given by Unable to obtain Patient's Current Physicians DR. FAUSTIN Discharge To, Anticipated Home independently Activity Status ADL Awake SCD On/Re-applied right knee high Antiembolism Stocking On/Re-applied right thigh high NPO Status Maintained Standard Safety ID band on, Allergy Band on, Call device within reach, Bed in low position, Wheels locked, Upper/Half-Length side-rails up, Safety level maintained Prev Test Positive/Diagnosis w/COVID-19 No Current Quarantine/Isolated any Illness No Any Contact with Sick Animals/Birds No Traveled Anywhere in Last 30 Days No Allergy Band on and Verified Yes Patient ID Band on and Verified Yes Implants Verified Yes Pacemaker/AICD Verified Yes Blood Consent Signed Yes Last Fluid Intake 01/19/2022 2:00 Last Food Intake 01/18/2022 21:00 Patient Cleared for Surgery By RUTHANN FAUSTIN MD Lost Weight Unintentionally Recently No Eat Poorly Due to Decreased Appetite No Total MST Score 0 No Personal Devices, Patient Valuables Glasses Anesthesia/Transfusions Prior anesthesia Admission Note-Nursing Same Day Patient History . Assessment and Plan [place] [employer]esthesi[employer] (ASA) physical status classification: Class III. Anesthetic Preoperative Plan Anesthetic technique: Spinal. Informed consent: signed by patient. Digitally Signed by CLAUDINE MCGINNIS on 01/19/2022 12:55 PM [facility] documented as of this encounter (statuses as of 08/15/2021) [facility] History of Past illness Narrative* Problem Noted Date Resolved Date Breast cancer, stage 1 09/03/2014 5 Anemia 09/02/2014 09/03/2014 Drug induced neutropenia(288.03) 07/11/2014 09/02/2014 Breast cancer 06/06/2014 09/03/2014 documented as of this encounter (statuses as of 08/18/2021) [address]14-2015 History of Past illness Narrative* Problem Noted Date Resolved Date Breast cancer, stage 1 09/03/2014 5 Anemia 09/02/2014 09/03/2014 Drug induced neutropenia(288.03) 07/11/2014 09/02/2014 Breast cancer 06/06/2014 09/03/2014 documented as of this encounter (statuses as of 08/20/2021) [address]14-2015 History of Past illness Narrative* Problem Noted Date Resolved Date Breast cancer, stage 1 09/03/2014 5 Anemia 09/02/2014 09/03/2014 Drug induced neutropenia(288.03) 07/11/2014 09/02/2014 Breast cancer 06/06/2014 09/03/2014 documented as of this encounter (statuses as of 11/04/2021) [place] [address]-14-2015 History of Past illness Narrative* Problem Noted Date Resolved Date Breast cancer, stage 1 09/03/2014 5 Anemia 09/02/2014 09/03/2014 Drug induced neutropenia(288.03) 07/11/2014 09/02/2014 Breast cancer 06/06/2014 09/03/2014 documented as of this encounter (statuses as of 02/08/2022) [address]2015 History of Past illness Narrative* Problem Noted Date Resolved Date Breast cancer, stage 1 09/03/2014 5 Anemia 09/02/2014 09/03/2014 Drug induced neutropenia(288.03) 07/11/2014 09/02/2014 Breast cancer 06/06/2014 09/03/2014 documented as of this encounter (statuses as of 08/18/2022) [address]2015 History of Past illness Narrative* Problem Noted Date Diagnosed Date Resolved Date Breast cancer, stage 1 09/03/201409/09 Anemia 09/02/2014 09/03/2014 Drug induced neutropenia(288.03) 07/11/2014 09/02/2014 Breast cancer 06/06/2014 09/03/2014 documented as of this encounter (statuses as of 11/05/2022) [place] [address]14-2015 History of Past illness Narrative* Problem Noted Date Diagnosed Date Resolved Date Breast cancer, stage 1 09/03/201409/09 Anemia 09/02/2014 09/03/2014 Drug induced neutropenia(288.03) 07/11/2014 09/02/2014 Breast cancer 06/06/2014 09/03/2014 documented as of this encounter (statuses as of 11/15/2022) [facility] History of Past illness Narrative* Problem Noted Date Diagnosed Date Resolved Date Breast cancer, stage 1 09/03/201409/09 Anemia 09/02/2014 09/03/2014 Drug induced neutropenia(288.03) 07/11/2014 09/02/2014 Breast cancer 06/06/2014 09/03/2014 documented as of this encounter (statuses as of 12/26/2022) [place] [address]-14-2015 History of Past illness Narrative* Problem Noted Date Diagnosed Date Resolved Date Breast cancer, stage 1 09/03/201409/09 Anemia 09/02/2014 09/03/2014 Drug induced neutropenia(288.03) 07/11/2014 09/02/2014 Breast cancer 06/06/2014 09/03/2014 documented as of this encounter (statuses as of 12/26/2022) [facility] + Plan note Future Appointments [facility] Evaluation note* Diagnosis Infiltrating ductal carcinoma of right breast (HCC) Encounter for screening mammogram for high-risk patient [facility] [place] [facility]* Diagnosis Malignant neoplasm of right breast in female, estrogen receptor positive, unspecified site of breast (HCC)- Primary Encounter for screening mammogram for high-risk patient [facility] [place] [facility]* Diagnosis Malignant neoplasm of right breast in female, estrogen receptor positive, unspecified site of breast (HCC) Encounter for screening mammogram for high-risk patient [facility] [place] [facility]* 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 documented in this encounter [facility] course Narrative No data available for this section [facility] Hospital Discharge instructions No data available for this section [facility] Progress note No data available for this section [facility] Reason for referral (narrative)* Diagnostic Procedure Only (Routine) - Closed Specialty Diagnoses / Procedures Referred By Steff hines Referred To Contact [facility] Diagnoses Infiltrating ductal carcinoma of right breast (HCC) Encounter for screening mammogram for high-risk patient Procedures BLAIRE SCREENING W DELORES SCREENING DIGITAL BREAST TOMOSYNTHESIS BI SCREENING MAMMOGRAPHY BI 2-VIEW BREAST INC Yeni Vela APRN.DIAGRAM CLERK [address] [place] [address] [facility] [address] [place] [address] Referral ID Status Reason Start Date Expiration Date V isits Requested Visits Authorized [id number] Closed Auto-Generate d Referral 05/18/2021 06/17/2022 1 1 [facility] for referral (narrative)* Diagnostic Procedure Only (Routine) - Authorized Specialty Diagnoses / Procedures Referred By Steff hines Referred To Contact [facility] Diagnoses Malignant neoplasm of right breast in female, estrogen receptor positive, unspecified site of breast (HCC) Encounter for screening mammogram for high-risk patient Procedures BLAIRE SCREENING W DELORES SCREENING DIGITAL BREAST TOMOSYNTHESIS BI SCREENING MAMMOGRAPHY BI 2-VIEW BREAST INC Yeni Vela APRN.DIAGRAM CLERK [address] [place] [address] [facility] [address] [place] [address] Referral ID Status Reason Start Date Expiration Date Visits Requested Visits Authorized [id number] Authorized Auto-Generat ed Referral 08/20/2021 09/19/2022 1 1 [facility] for referral (narrative)* Diagnostic Procedure Only (Routine) - Closed Specialty Diagnoses / Procedures Referred By Steff t Referred To Contact [facility] Diagnoses Malignant neoplasm of right breast in female, estrogen receptor positive, unspecified site of breast (HCC) Encounter for screening mammogram for high-risk patient Procedures BLAIRE SCREENING W DELORES SCREENING DIGITAL BREAST TOMOSYNTHESIS BI SCREENING MAMMOGRAPHY BI 2-VIEW BREAST INC Yeni Vela APRN.DIAGRAM CLERK [address] [place] [address] [facility] [address] [place] [address] Referral ID Status Reason Start Date Expiration Date V isits Requested Visits Authorized [id number] Closed Auto-Generate d Referral 08/20/2021 09/19/2022 1 1 [facility] for visit Narrative* Diagnostic Procedure Only (Routine) - Closed Specialty Diagnoses / Procedures Referred By Steff hines Referred To Contact [facility] Diagnoses Infiltrating ductal carcinoma of right breast (HCC) Encounter for screening mammogram for high-risk patient Procedures BLAIRE SCREENING W DLEORES SCREENING DIGITAL BREAST TOMOSYNTHESIS BI SCREENING MAMMOGRAPHY BI 2-VIEW BREAST INC Yeni Vela APRN.DIAGRAM CLERK [address] [place] [address] [facility] [address] [place] [address] Referral ID Status Reason Start Date Expiration Date V isits Requested Visits Authorized [id number] Closed Auto-Generate d Referral 05/18/2021 06/17/2022 1 1 [facility] for visit Narrative* Diagnostic Procedure Only (Routine) - Closed Specialty Diagnoses / Procedures Referred By Steff t Referred To Contact [facility] Diagnoses Malignant neoplasm of right breast in female, estrogen receptor positive, unspecified site of breast (HCC) Encounter for screening mammogram for high-risk patient Procedures BLAIRE SCREENING W DELORES SCREENING DIGITAL BREAST TOMOSYNTHESIS BI SCREENING MAMMOGRAPHY BI 2-VIEW BREAST INC Yeni Vela APRN.DIAGRAM CLERK [address] [place] [address] [facility] [address] [place] [address] Referral ID Status Reason Start Date Expiration Date V isits Requested Visits Authorized [id number] Closed Auto-Generate d Referral 08/20/2021 09/19/[address] [facility] Advance Directives Documents on File Type Date Recorded Patient Combustion Analyst Expl anation Advance Directive(s) 04/27/2019 8:08 AM Advance Directive(s) 06/26/2014 3:47 PM Documents on File Type Date Recorded Patient Combustion Analyst Expl anation Advance Directive(s) 04/27/2019 8:08 AM Advance Directive(s) 06/26/2014 3:47 PM Documents on File Type Date Recorded Patient Combustion Analyst Expl anation Advance Directive(s) 06/26/2014 3:47 PM Documents on File Type Date Recorded Patient Combustion Analyst Expl anation Advance Directive(s) 06/26/2014 3:47 PM Summary Purpose Family History No Family History Records FoundNo Family History Records Found Additional Source Comments Source Comments (unrecognize d section and content) In the event this informatio n is protected by the Federal Confidentiality of Alcohol and Drug Abuse Patient Records regulations: The Federal rules restrict any use of the information to criminally investigate or prosecute any alcohol or drug abuse patient.[facility] event this information is protected by the Federal Confidentiality of Alcohol and Drug Abuse Patient Records regulations: The Federal rules restrict any use of the information to criminally investigate or prosecute any alcohol or drug abuse patient.[facility] the event this information is protected by the Federal Confidentiality of Alcohol and Drug Abuse Patient Records regulations: The Federal rules restrict any use of the information to criminally investigate or prosecute any alcohol or drug abuse patient.[facility] the event this information is protected by the Federal Confidentiality of Alcohol and Drug Abuse Patient Records regulations: The Federal rules restrict any use of the information to criminally investigate or prosecute any alcohol or drug abuse patient.[facility] the event this information is protected by the Federal Confidentiality of Alcohol and Drug Abuse Patient Records regulations: The Federal rules restrict any use of the information to criminally investigate or prosecute any alcohol or drug abuse patient.[facility] the event this information is protected by the Federal Confidentiality of Alcohol and Drug Abuse Patient Records regulations: The Federal rules restrict any use of the information to criminally investigate or prosecute any alcohol or drug abuse patient.[facility] the event this information is protected by the Federal Confidentiality of Alcohol and Drug Abuse Patient Records regulations: The Federal rules restrict any use of the information to criminally investigate or prosecute any alcohol or drug abuse patient.[facility] the event this information is protected by the Federal Confidentiality of Alcohol and Drug Abuse Patient Records regulations: The Federal rules restrict any use of the information to criminally investigate or prosecute any alcohol or drug abuse patient.[facility] the event this information is protected by the Federal Confidentiality of Alcohol and Drug Abuse Patient Records regulations: The Federal rules restrict any use of the information to criminally investigate or prosecute any alcohol or drug abuse patient.[facility] the event this information is protected by the Federal Confidentiality of Alcohol and Drug Abuse Patient Records regulations: The Federal rules restrict any use of the information to criminally investigate or prosecute any alcohol or drug abuse patient.[facility] Care Teams (unrecognized sec tion and content) Supervisor Covering And Lining Relationship Specialty Start Date End Date Ruthann Faustin [address] [facility] [address] [place] [address] PCP - General Family Practice 01/31/19 Supervisor Covering And Lining Relationship Specialty Start Date End Date Ruthann Faustin [address] [facility] [address] [place] [address] PCP - General Family Practice 01/31/19 Supervisor Covering And Lining Relationship Specialty Start Date End Date Ruthann Faustin [address] [facility] [address] [place] [address] PCP - General Family Practice 01/31/19 Supervisor Covering And Lining Relationship Specialty Start Date End Date Ruthann Faustin [address] [facility] [address] [place] [address] PCP - General Family Medicine 01/31/19 Supervisor Covering And Lining Relationship Specialty Start Date End Date Ruthann Faustin [address] [facility] [address] [place] [address] PCP - General Family Medicine 01/31/19 Supervisor Covering And Lining Relationship Specialty Start Date End Date Ruthann Faustin MD [address] [facility] [address] [place] [address] PCP - General Family Medicine 01/31/19 Supervisor Covering And Lining Relationship Specialty Start Date End Date Ruthann Faustin MD [address] [facility] [address] [place] [address] PCP - General Family Medicine 01/31/19 Reason for Visit (unrecogniz ed section and content) Reason Onset Date Comments Refill Request 11/04/2021 Reason Onset Date Comments Refill Request 02/08/2022 Reason Onset Date Comments Refill Request 11/05/2022 Reason Onset Date Comments Refill Request 11/12/2022 Care Team (unrecognized sect ion and content) Care Team Personnel Name: RUTHANN FAUSTIN MD Member Role: Primary Care Physician Address: Address: [address] [place] [address]- Care Team Related Persons Name: KITA DYER Name: ANURAG WOO INFORMATION SOURCE (unrecogn ized section and content) DATE CREATED AUTHOR AUTHOR'S ORGANIZ ATION 11/01/2022 [facility] FOR RECORDS PERTAINING TO PATIENTS WHO ARE OR HAVE BEEN ENROLLED IN A CHEMICAL DEPENDENCY/SUBSTANCEABUSE PROGRAM, SOME INFORMATION MAY BE OMITTED. This clinical summary was aggregated from multiple sources. Caution should be exercised in using it in the provision of clinical care. This summary normalizes information from multiple sources, and as a consequence, information in this document may materially change the coding, format and clinical context of patient data. In addition, data may be omitted in some cases. CLINICAL DECISIONS SHOULD BE BASED ON THE PRIMARY CLINICAL RECORDS. [employer] provides no warranty or guarantee of the accuracy or completeness of information in this document.
== END | disposition home or self-care (01) ==
LOC: CVS 07:46
PROVIDERS: PCP Family Medicine; Referring Provider Family Medicine; Visit Provider Family Medicine
DX: R01.1 Cardiac murmur, unspecified (principal)
CPT/HCPCS: 93306

== ENCOUNTER → 2023-06-01 | Outpatient (CLI) | payer MEDICARE, OTHER, SELFPAY ==
[2023-06-01 10:54] LABS: Absolute Lymphocyte Count 2.24 X10^3/uL (0.83-4.51); Absolute Neutrophil Count 3.6 X10^3/uL (2.0-7.7); Basophil# 0.05 X10^3/uL; Basophil% 0.7 % (0-1); Eosinophil# 0.29 X10^3/uL; Eosinophils% 4.3 % (0-5); Hematocrit 39.6 % (37-47); Hemoglobin 12.7 g/dL (12.0-15.0); Lymphocyte # 2.24 X10^3/ul (0.83-4.51); Lymphocyte % 32.9 % (19-41); Mean Corp Hgb Conc 32.1 g/dL (32-36); Mean Corpuscular Hgb 31.4 pg (27.0-32.0); Mean Platelet Vol. 8.8 fl (6.2-12.0); Monocyte% 8.8 % (0-10); NRBC Flagged by Analyzer 0 % (0-5); Neutrophil # 3.61 X10^3/uL (2.7-7.7); Platelet Count 410 K/mm3 (150-450); RBC Distribution Width CV 13.2 % (11.6-14.6); RBC Distribution Width SD 47.8 fl (35.1-43.9); Red Blood Count 4.04 M/mm3 (4.2-5.4); White Blood Count 6.8 K/mm3 (4.4-11.0)
[2023-06-01 11:20] LABS: Anion Gap 5 (5-15); BUN 20 mg/dL (7-18); BUN/Creat Ratio 21.6 RATIO (10-20); Calcium,Total 9.6 mg/dL (8.5-10.1); Chloride 105 mmol/L (98-107); Creatinine, Serum 0.92 mg/dL (0.55-1.02); EST Glomerular Filtration Rate 64 mL/min (>60); Est Glom Filt Rate - Afr Amer 77 mL/min (>60); Glucose 113 mg/dL (74-106); Potassium 4.2 mmol/L (3.5-5.1); Sodium Level 139 mmol/L (136-145)
== END | disposition home or self-care (01) ==
LOC: LAB 10:09
PROVIDERS: PCP Family Medicine; Referring Provider Internal Medicine Cardiovascular Disease; Visit Provider Internal Medicine Cardiovascular Disease
DX: E03.9 Hypothyroidism, unspecified (principal); R73.01 Impaired fasting glucose; E78.5 Hyperlipidemia, unspecified; E83.52 Hypercalcemia; D63.8 Anemia in other chronic diseases classified elsewhere; R07.9 Chest pain, unspecified
CPT/HCPCS: 36415; 80048; 85025

== ENCOUNTER 2023-06-21 06:59 | Day surgery (SDC) | payer MEDICARE, OTHER, SELFPAY ==
[2023-06-20 08:30] VITALS: BMI 24.5
--- NOTE | 2023-06-21 09:10 | CL.D_ITS ---
Patient Name: NATALIA OROZCO Study Date: 06/21/2023 Performing: Romie Lao MD Ht: 64 inches 162.56 cm : 1955 Wt: 142.99 lbs 64.86 kg Age: 67 Gender: female BSA: 1.7 PROCEDURE(S) PERFORMED DC01-(71025)LHC/COR/LV CLINICAL PROFILE AND INDICATIONS Indications: Suspected CAD Heart Failure: None Stress/Imaging Date: 05/25/23 CAD Presentations: Symptom unlikely to be ischemic. CONCLUSIONS Normal coronary arteries Normal LV size, wall motion,and systolic function RECOMMENDATIONS Medical therapy DESCRIPTION OF PROCEDURE The patient arrived to the procedure lab. The risks and benefits of the procedure as well as a full description of our services here and current unavailability of surgical backup were fully explained to the patient and/or their significant other prior to the catheterization. The Timeout was completed, verifying the correct patient and procedure. The patient's procedural site was prepped and draped in the usual fashion. Local anesthetic was given subcutaneously to right radial region with Lidocaine 2%. Using a modified Seldinger technique, arterial access was obtained via the right radial artery, a 6Fr sheath was inserted. Left Coronary Artery selective angiography was performed in multiple views using a 5 Fr. 4.0 Tippo catheter. Right Coronary Artery selective angiography was then performed in multiple views using a 5 Fr. 4.0 Tippo catheter. Left Ventriculography was performed in JADE projection using a 5 Fr. Pigtail catheter. LV to AO pullback pressures were then recorded.The arterial sheath was pulled and a TR Band was applied for hemostasis 10 ml air CORONARY ANGIOGRAPHY DOMINANCE: Right Dominant LEFT HEART ASSESSMENT Left Ventricular Ejection Fraction: by LV Gram 60 % Normal LV wall motion Normal Left Ventricular systolic function Normal Left Ventricular systolic function LEFT MAIN: Angiographically normal LEFT ANTERIOR DESCENDING ARTERY: Angiographically normal CIRCUMFLEX ARTERY: Angiographically normal RIGHT CORONARY ARTERY: Angiographically normal COMPLICATIONS No Complications PROCEDURE MEDICATIONS Fentanyl 50 mcg IV Versed 1 mg IV Versed 1 mg IV Versed 1 mg IV Oxygen: 2 L/min via nasal cannula Heparin given IA 06/21/2023 08:53:18 Verapamil 2.5mg, Ntg 100mcgs, 3000 units of Heparin given IA 06/21/2023 08:53:18 SUMMARY OF HEMODYNAMIC DATA Time AIR REST AO 122/79 (100) SA 08:55:32 LV 115/10, 15 09:00:08 LV 110/9, 13 09:00:17 LV 106/10, 17 09:00:45 LV 97/8, 14 09:00:54 LVp 91/10, 17 09:00:59 AOp 112/60 (84) 09:01:06 ECG 09:13:32 09:13:32 Signed By Romei Lao MD On 06/21/2023 09:13:45 Signed By Romie Lao MD On 06/21/2023 09:09:49 Romie Lao MD
== END 2023-06-21 10:35 | disposition home or self-care (01) ==
LOC: CLSP 07:01
PROVIDERS: PCP Family Medicine; Referring Provider Internal Medicine Cardiovascular Disease; Visit Provider Internal Medicine Cardiovascular Disease
DX: R07.9 Chest pain, unspecified (principal); Z85.3 Personal history of malignant neoplasm of breast; E78.5 Hyperlipidemia, unspecified; K21.9 Gastro-esophageal reflux disease without esophagitis; Z80.3 Family history of malignant neoplasm of breast; E03.9 Hypothyroidism, unspecified; R06.02 Shortness of breath; R53.83 Other fatigue; Z82.49 Family history of ischemic heart disease and other diseases of the circulatory system
CPT/HCPCS: 93458; 99152; 99153; J7040; Q9967; C1769; C1894

== ENCOUNTER → 2024-01-17 | Outpatient (CLI) | payer MEDICARE, OTHER, SELFPAY ==
[2024-01-17 12:36] LABS: Absolute Lymphocyte Count 2.06 X10^3/uL (0.83-4.51); Absolute Neutrophil Count 4.4 X10^3/uL (2.0-7.7); Basophil# 0.04 X10^3/uL; Basophil% 0.6 % (0-1); Eosinophil# 0.18 X10^3/uL; Eosinophils% 2.5 % (0-5); Hematocrit 40.6 % (37-47); Hemoglobin 12.8 g/dL (12.0-15.0); Lymphocyte # 2.06 X10^3/ul (0.83-4.51); Lymphocyte % 28.5 % (19-41); Mean Corp Hgb Conc 31.5 g/dL (32-36); Mean Corpuscular Volume 98.3 fL (81-99); Mean Platelet Vol. 8.5 fl (6.2-12.0); Monocyte# 0.56 X10^3/uL; Monocyte% 7.8 % (0-10); NRBC Flagged by Analyzer 0 % (0-5); Neutrophil # 4.35 X10^3/uL (2.7-7.7); Neutrophil % 60.2 % (47-70); Platelet Count 427 K/mm3 (150-450); RBC Distribution Width CV 13.5 % (11.6-14.6); RBC Distribution Width SD 48.7 fl (35.1-43.9); Red Blood Count 4.13 M/mm3 (4.2-5.4); White Blood Count 7.2 K/mm3 (4.4-11.0)
[2024-01-17 12:42] LABS: Ionized Calcium 1.28 mmol/L (1.09-1.30)
[2024-01-17 12:59] LABS: PTHIN 73.8 pg/mL (18.4-80.1)
[2024-01-17 13:02] LABS: Vitamin D,25 Hydroxy 51.2 ng/mL
[2024-01-17 13:15] LABS: Ionized Calcium Order ORDER TUBE
[2024-01-17 13:34] LABS: ALB/GLOB Ratio 0.9 RATIO (0.9-2.4); AST(SGOT) 20 U/L (15-37); Alanine Aminotransfer ALT/SGPT 31 U/L (13-56); Albumin, Serum 3.5 g/dL (3.2-5.0); Alkaline Phosphatase 113 U/L (45-117); Anion Gap 5 (5-15); BUN 12 mg/dL (7-18); BUN/Creat Ratio 15.9 RATIO (10-20); Calcium,Total 9.6 mg/dL (8.5-10.1); Chloride 106 mmol/L (98-107); Cholesterol 186 mg/dL (200); Creatinine, Serum 0.76 mg/dL (0.55-1.02); EST Glomerular Filtration Rate 80 mL/min (>60); Est Glom Filt Rate - Afr Amer 97 mL/min (>60); Globulin 3.8 g/dL (2.2-4.2); Glucose 103 mg/dL (74-106); High Density Lipoprotein 86 mg/dL; Potassium 4.3 mmol/L (3.5-5.1); Protein, Total 7.3 g/dL (6.4-8.2); Sodium Level 139 mmol/L (136-145); T4 Free Direct 1.55 ng/dL (0.76-1.46); Triglycerides 55 mg/dL; Very Low Density Lipoprotein 11 mg/dL (5-40)
== END | disposition home or self-care (01) ==
LOC: MTLAB 11:44
PROVIDERS: PCP Family Medicine; Referring Provider Family Medicine; Visit Provider Family Medicine
DX: E78.5 Hyperlipidemia, unspecified (principal); E03.9 Hypothyroidism, unspecified; E83.52 Hypercalcemia; R73.01 Impaired fasting glucose
CPT/HCPCS: 80053; 80061; 82306; 82330; 83036; 83970; 84439; 84443; 85025

== ENCOUNTER → 2024-05-16 | Outpatient (CLI) | payer MEDICARE, OTHER, SELFPAY ==
[2024-05-16 15:54] LABS: Absolute Neutrophil Count 3.2 X10^3/uL (2.0-7.7); Basophil# 0.08 X10^3/uL; Basophil% 1.2 % (0-1); Eosinophil# 0.28 X10^3/uL; Eosinophils% 4.2 % (0-5); Hematocrit 39.8 % (37-47); Hemoglobin 12.9 g/dL (12.0-15.0); Lymphocyte % 36.4 % (19-41); Mean Corp Hgb Conc 32.4 g/dL (32-36); Mean Corpuscular Hgb 31.2 pg (27.0-32.0); Mean Corpuscular Volume 96.4 fL (81-99); Mean Platelet Vol. 9.7 fl (6.2-12.0); Monocyte# 0.64 X10^3/uL; Monocyte% 9.7 % (0-10); NRBC Flagged by Analyzer 0 % (0-5); Neutrophil # 3.17 X10^3/uL (2.7-7.7); Neutrophil % 48.2 % (47-70); Platelet Count 409 K/mm3 (150-450); RBC Distribution Width CV 12.7 % (11.6-14.6); RBC Distribution Width SD 45.1 fl (35.1-43.9); Red Blood Count 4.13 M/mm3 (4.2-5.4); White Blood Count 6.6 K/mm3 (4.4-11.0)
[2024-05-16 20:25] LABS: ALB/GLOB Ratio 1.5 RATIO (0.9-2.4); AST(SGOT) 23 U/L (<=31); Alanine Aminotransfer ALT/SGPT 25 U/L (<=34); Albumin, Serum 4.2 g/dL (3.4-4.8); Alkaline Phosphatase 132 U/L (35-104); Anion Gap 10 (5-15); BUN 14 mg/dL (4-19); BUN/Creat Ratio 18.5 RATIO (10-20); Calcium,Total 9.9 mg/dL (7.6-11.0); Chloride 104 mmol/L (98-108); Creatinine, Serum 0.76 mg/dL (0.70-1.20); EST Glomerular Filtration Rate 85 (>60); Globulin 2.8 g/dL (2.2-4.2); Glucose 100 mg/dL (70-99); Potassium 4.5 mmol/L (3.3-5.1); Sodium Level 141 mmol/L (133-145); Total Bilirubin 0.22 mg/dL (0.00-1.30)
[2024-05-16 20:35] LABS: Cholesterol 176 mg/dL (<=200); High Density Lipoprotein 75 mg/dL; Low Density Lipoprotein Calc. 91 mg/dL; Triglycerides 53 mg/dL; Very Low Density Lipoprotein 11 mg/dL (5-40); cholesterol:hdl ratio screen 2.36
[2024-05-16 20:45] LABS: Hemoglobin A1c 5.9 % (<=5.6)
== END | disposition home or self-care (01) ==
LOC: MTLAB 10:31
PROVIDERS: PCP Family Medicine; Referring Provider Family Medicine; Visit Provider Family Medicine
DX: E03.9 Hypothyroidism, unspecified (principal); E78.5 Hyperlipidemia, unspecified; R73.01 Impaired fasting glucose
CPT/HCPCS: 36415; 80053; 80061; 83036; 84439; 84443; 85025

== ENCOUNTER → 2024-10-26 | Outpatient (CLI) | payer MEDICARE, OTHER, SELFPAY ==
[2024-10-26 10:29] LABS: Hematocrit 38.7 % (37-47); Hemoglobin 12.9 g/dL (12.0-15.0); Immature Granulocytes Count 0.020 X10^3/uL (0.0-0.0); Mean Corp Hgb Conc 33.3 g/dL (32-36); Mean Corpuscular Volume 96.0 fL (81-99); Mean Platelet Vol. 9.1 fl (6.2-12.0); NRBC Flagged by Analyzer 0 % (0-5); Platelet Count 350 K/mm3 (150-450); RBC Distribution Width CV 13.0 % (11.6-14.6); RBC Distribution Width SD 46.3 fl (35.1-43.9); Red Blood Count 4.03 M/mm3 (4.2-5.4); White Blood Count 5.6 K/mm3 (4.4-11.0)
[2024-10-26 11:50] LABS: AST(SGOT) 22 U/L (<=31); Alanine Aminotransfer ALT/SGPT 29 U/L (<=34); Albumin, Serum 4.1 g/dL (3.4-4.8); Alkaline Phosphatase 111 U/L (35-104); Anion Gap 10 (5-15); BUN 15 mg/dL (4-19); BUN/Creat Ratio 21.0 RATIO (10-20); Calcium,Total 9.9 mg/dL (7.6-11.0); Carbon Dioxide 25.6 mmol/L (21.0-32.0); Chloride 105 mmol/L (98-108); Cholesterol 195 mg/dL (<=200); Globulin 2.7 g/dL (2.2-4.2); Glucose 105 mg/dL (70-99); Low Density Lipoprotein Calc. 101 mg/dL; Potassium 4.0 mmol/L (3.3-5.1); Triglycerides 85 mg/dL; Very Low Density Lipoprotein 17 mg/dL (5-40); cholesterol:hdl ratio screen 2.52
== END | disposition home or self-care (01) ==
LOC: MTLAB 09:20
PROVIDERS: PCP Family Medicine; Referring Provider Family Medicine; Visit Provider Family Medicine
DX: E78.5 Hyperlipidemia, unspecified (principal); E03.9 Hypothyroidism, unspecified; R73.01 Impaired fasting glucose
CPT/HCPCS: 36415; 80053; 80061; 83036; 84439; 84443; 85025

== ENCOUNTER → 2024-10-31 | Outpatient (CLI) | payer MEDICARE, OTHER, SELFPAY ==
[2024-10-31 16:07] LABS: Free T3 2.3 pg/mL (2.18-3.98)
[2024-11-04 15:07] LABS: Thyroglobulin, Serum Qt. 14.4 ng/mL (1.5-38.5); Thyroid Stim Immunoglob <0.10 IU/L (0.00-0.55)
== END | disposition home or self-care (01) ==
LOC: MTLAB 12:51
PROVIDERS: PCP Family Medicine; Referring Provider Family Medicine; Visit Provider Family Medicine
DX: E03.9 Hypothyroidism, unspecified (principal)
CPT/HCPCS: 36415; 84432; 84445; 84481; 84482; 86376; 86800

== ENCOUNTER → 2025-01-28 | Outpatient (CLI) | payer MEDICARE, OTHER, SELFPAY ==
[2025-01-28 13:05] LABS: AST(SGOT) 25 U/L (<=31); Alanine Aminotransfer ALT/SGPT 27 U/L (<=34); Albumin, Serum 4.1 g/dL (3.4-4.8); Alkaline Phosphatase 107 U/L (35-104); Anion Gap 8 (5-15); BUN 21 mg/dL (4-19); BUN/Creat Ratio 23.9 RATIO (10-20); Calcium,Total 9.9 mg/dL (7.6-11.0); Carbon Dioxide 28.1 mmol/L (21.0-32.0); Chloride 102 mmol/L (98-108); Cholesterol 197 mg/dL (<=200); Globulin 2.7 g/dL (2.2-4.2); Glucose 102 mg/dL (70-99); Low Density Lipoprotein Calc. 105 mg/dL; Potassium 4.7 mmol/L (3.3-5.1); Triglycerides 70 mg/dL; Very Low Density Lipoprotein 14 mg/dL (5-40); cholesterol:hdl ratio screen 2.48
== END | disposition home or self-care (01) ==
LOC: MTLAB 09:48
PROVIDERS: PCP Family Medicine; Referring Provider Family Medicine; Visit Provider Family Medicine
DX: R73.01 Impaired fasting glucose (principal); E78.5 Hyperlipidemia, unspecified; E03.9 Hypothyroidism, unspecified
CPT/HCPCS: 36415; 80053; 80061; 83036; 84439; 84443